=== PATIENT | female | born 1940 | race Caucasian/White ===

== ENCOUNTER 2020-01-13 12:28 | Inpatient (IN) | payer MEDICARE, OTHER ==
--- NOTE | 2020-01-13 13:13 | EDM.PDOC ---
ED HPI GENERAL MEDICAL PROBLEM - General Chief Complaint: Respiratory Problem Stated Complaint: SOB Time Seen by Provider: 01/13/20 13:08 Source of Information: Reports: Patient, Family (spouse) History Limitations: Reports: No Limitations - History of Present Illness INITIAL COMMENTS - FREE TEXT/NARRATIVE: 79-year-old female presents to the ED in the accompaniment of her . She reports diffuse left-sided chest pain starting along the diaphragm and rating up towards the left shoulder for the last 3 weeks. It has been progressively getting worse. It is worse if she coughs or she lies on that side. Describes it primarily as a pleuritic-like pain. She had chills this morning but not previously. No noted fever. Denies any cough or sputum production. No exposure to COVID-19 virus that she knows of. He has had a previous myocardial infarction in 1980 and stop smoking at that time. She has COPD but is not on home oxygen. She has no history of congestive heart failure. She reports that she had an angiogram done a little over 2 weeks ago which proved to be negative for any significant coronary artery blockage. She has a history of breast cancer again into the where she had a large lumpectomy and lymph node dissection on the left side and prophylactic right-sided mastectomy due to abnormalities appreciated on mammogram and she has had reconstructive surgery on this side. Previous abdominal surgeries that of total abdominal hysterectomy and BSO. Also reports having a hemorrhoidectomy and chronic problems with constipation with what sounds like a rectal stenosis. Onset: Gradual Onset Date: 12/23/19 (Steffanie worsening left-sided chest pain x3 weeks.) Duration: Week(s):, Getting Worse Location: Reports: Chest (Diffuse left anterior and posterior chest pain radiating from the diaphragm up to the suprasternal area.) Quality: Reports: Other (Mostly pleuritic-like pain) Severity: Moderate Improves with: Reports: Rest Worsens with: Reports: Other (Also prefers to lie on her right side. She states she sleeps flat with one pillow.) Associated Symptoms: Reports: Chest Pain, Fever/Chills, Loss of Appetite, Malaise, Shortness of Breath, Weakness. Denies: Confusion, Cough, cough w sputum, Diaphoresis, Headaches, Nausea/Vomiting (Is this morning.), Rash, Seizure, Syncope Treatments MAINTENANCE MILLWR[employer]: Reports: Acetaminophen, Other (see below) Left Middle Chest Pain Score (Numeric/FACES): 8 - Related Data Allergies Allergy/AdvReac Type Severity Reaction Status Date / Time diphenhydramine Allergy Severe Other Verified 01/13/20 12:39 [From Benadryl] iodine Allergy Hives Verified 01/13/20 12:39 lisinopril AdvReac Cough Verified 01/13/20 12:39 regadenoson [From Lexiscan] AdvReac Tachycardia Verified 01/13/20 12:39 contrast dye Allergy Hives Uncoded 01/13/20 12:39 Home Meds: Home Meds Acetaminophen [Tylenol Extra Strength] 1,000 mg PO Q4HR PRN 10/05/15 [History] Aspirin [Halfprin] 81 mg PO DAILY 10/05/15 [History] Bumetanide [Bumex] 2 mg PO DAILY 10/05/15 [History] Calcium Carb,Gluc/Mag Ox,Gluc [Calcium Magnesium Caplet] 1 tab PO DAILY 10/05/15 [History] Calcium Carbonate/Vitamin D3 [Caltrate 600 Plus D3 Tablet] 1 tab PO DAILY 10/05/15 [History] Docusate Sodium [Colace] 100 mg PO BID 10/05/15 [History] Fish Oil/DHA/EPA [Fish Oil 1,200 MG] 1 tab PO DAILY 10/05/15 [History] Gabapentin [Neurontin] 400 mg PO DAILY 10/05/15 [History] Isosorbide Mononitrate [Imdur] 60 mg PO DAILY 10/05/15 [History] Losartan [Cozaar] 50 mg PO DAILY 10/05/15 [History] Nitroglycerin [Nitrostat] 0.4 mg SL Q5M 10/05/15 [History] Pentoxifylline [TRENtal] 400 mg PO TID 10/05/15 [History] Sertraline [Zoloft] 50 mg PO DAILY 10/05/15 [History] Vitamin B Complex [B Complex] 1 tab PO DAILY 10/05/15 [History] carvediloL [Coreg] 25 mg PO BID 10/05/15 [History] B2/Vits A,C,E/Lut/Zeaxanth/Min [Icaps] 1 tab PO DAILY 04/23/16 [History] Potassium Chloride 10 meq PO DAILY 04/23/16 [History] Similasan Eye Drop 1 drop EYEBOTH DAILY 04/23/16 [History] Simvastatin 1 tab PO DAILY 04/23/16 [History] Pantoprazole [Protonix] 40 mg PO BIDAC #60 tab.cr 04/24/16 [Rx] Past Medical History HEENT History: Reports: Cataract, Glaucoma, Impaired Vision Other HEENT History: wears glasses, has upper partial Cardiovascular History: Reports: CAD, Cardiomyopathy, Heart Failure, High Cholesterol, VT (Seen 81 at which time she quit smoking.), PVD, SOB on Exertion Other Cardiovascular History: HX VT 1980 with resultant cardiomyopathy - 2013 Echo with EF 30% Respiratory History: Reports: COPD (And on home oxygen therapy.), SOB Gastrointestinal History: Reports: GERD (On Protonix daily.) Other Gastrointestinal History: dysphagia, gastritis, hiatal hernia, polyp, nausea Other [employer]ION F[employer]ER History: pelvic relaxation, hx breast Cancer, bilateral masectomy, ovarian cystectomy, hysterectomy, cystocele, rectocele Musculoskeletal History: Reports: Back Pain, Chronic, Osteoarthritis, Osteoporosis Other Musculoskeletal History: degernative joint disease Other Neuro History: vertigo Psychiatric History: Reports: Depression Endocrine/Metabolic History: Reports: Osteoporosis, Vitamin D Deficiency Hematologic History: Reports: Anemia, Blood Transfusion(s) Immunologic History: Reports: None Oncologic (Cancer) History: Reports: Breast (Left breast cancer in the 1980s treated with lumpectomy and lymph node dissection. Did not require chemotherapy or radiation.) - Infectious Disease History Infectious Disease History: Reports: None - Past Surgical History HEENT Surgical History: Reports: Cataract Surgery Cardiovascular Surgical History: Reports: Other (See Below) Other Cardiovascular Surgeries/Procedures: Angiogram December 2019--negative for any significant coronary disease blockage. GI Surgical History: Reports: Colonoscopy, EGD Other GI Surgeries/Procedures: hemorrhoidectomy, rectocele repair Female Surgical History: Reports: Breast Reconstruction (On the right side. Breast was removed prophylactically due to left-sided breast cancer where she had a lumpectomy and lymph node dissection. She never required any chemotherapy or radiation.), Hysterectomy, Mastectomy, Salpingo-Oophorectomy (Bilateral.), Other (See Below) Oncologic Surgical History: Reports: Mastectomy Social & Family History - Tobacco Use Smoking Status *Q: Never Smoker - Caffeine Use Caffeine Use: Reports: Soda - Recreational Drug Use Recreational Drug Use: No - Living Situation & Occupation Living situation: Reports: Occupation: Retired ED ROS GENERAL - Review of Systems Review Of Systems: See Below Constitutional: Reports: Chills, Malaise, Weakness (Developed this morning.), Fatigue, Decreased Appetite, Weight Loss. Denies: Fever HEENT: Reports: Glasses Respiratory: Reports: Shortness of Breath, Pleuritic Chest Pain. Denies: Wheezing, Cough (Left side. This is been going on for 3 weeks and gradually worsening.), Sputum, Hemoptysis Cardiovascular: Reports: Chest Pain (Left-sided chest pain from diaphragm up to the superior lung field), Dyspnea on Exertion. 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 Feels very mildly warm to palpation. Temperature is 37.2 is recorded by nursing staff. Heart rate was 78 in sinus . BP 114/55 when she came in but it dropped to 105/50 while I was in the room. Sats remained 96 to 97% on room air but she is working hard to breathe.) Eye Exam: Bilateral Eye: Normal Inspection, PERRL Throat/Mouth: Normal Inspection, Normal Oropharynx, Normal Voice Head: Atraumatic, Normocephalic Neck: Normal Inspection, Supple, Full Range of Motion, Tender Lateral. No: Carotid Bruit, Lymphadenopathy (L), Lymphadenopathy (R), Thyromegaly Respiratory/Chest: No Accessory Muscle Use, Respiratory Distress (Tachypnea at rest.), Decreased Breath Sounds, Splinting. No: Crackles, Rales, Rhonchi, Wheezing (Sounds are mildly decreased to both lung bases some splinting on the left side.) Cardiovascular: Regular Rate, Rhythm, No Edema, No Gallop, No Murmur, No Rub, Other (Has known significant peripheral vascular disease with claudication.). No: Normal Peripheral Pulses Peripheral Pulses: 1+: Posterior Tibial (L) (Feet are cold and pulses are very difficult to feel.), Posterior Tibial (R), Dorsalis Pedis (L), Dorsalis Pedis (R), 2+: Carotid (L), Carotid (R) GI/Abdominal: Normal Bowel Sounds, Soft, Non-Tender, No Organomegaly, No Distention, No Abnormal Bruit, Pelvis Stable, Other (Pfannenstiel incision across the lower abdomen which is difficult to see as it is in 1 of her skin folds. This is from her total abdominal hysterectomy and BSO.) Extremities: Normal Inspection, Non-Tender, No Pedal Edema Neurological: Alert, Oriented, CN II-XII Intact, Normal Cognition Psychiatric: Anxious, Other (In pain.) Skin Exam: Warm, Dry, Intact, Normal Color, No Rash EKG INTERPRETATION EKG Date: 01/13/20 Time: 12:51 Rhythm: NSR Rate (Beats/Min): 75 [place]: LAD-Left [place] Deviation (This 50 degrees) P-Wave: Enlarged QRS: Other (There are Q waves V1 to V3 suggestive of an old anterior septal myocardial infarction. There are reciprocal changes with T wave inversions in leads I and aVL.) ST-T: Other (T wave inversion in leads I and aVL) QT: Prolonged EKG Interpretation Comments: Abnormal ECG Course - Vital Signs Last Recorded V/S: Last Vital Signs Temp 37.2 C 01/13/20 12:39 Pulse 78 01/13/20 12:39 Resp 20 01/13/20 12:39 BP 114/55 L 01/13/20 12:39 Pulse Ox 97 01/13/20 12:39 - Orders/Labs/Meds Orders: Active Orders 24 hr Category Date Time Status EKG 12 Lead [EKG Documentation Completion] [RC] ROUTINE Care 01/13/20 12:51 Active CULTURE BLOOD [BC] Stat Lab 01/13/20 13:39 Received CULTURE BLOOD [BC] Stat Lab 01/13/20 13:49 Received CULTURE URINE [RM] Routine Lab 01/13/20 15:35 Received PROCALCITONIN [REF] Stat Lab 01/13/20 13:49 Received Azithromycin [Zithromax] 500 mg Med 01/13/20 17:31 Active Sodium Chloride 0.9% [Normal Saline] 250 ml IV ONETIME Dextrose 5%-0.9% NaCl [Dextrose 5%-Normal Saline] 1,000 Med 01/13/20 13:15 Active ml IV ASDIRECTED cefTRIAXone [Rocephin] 2 gm Med 01/13/20 16:30 Active Sodium Chloride 0.9% [Normal Saline] 100 ml IV Q24H Blood Culture x2 Reflex Set [OM.PC] Stat Oth 01/13/20 13:11 Ordered Medication Orders Acetaminophen (Tylenol) 650 mg PO Q4H PRN PRN Reason: Pain (mild 1-3) Hydrocodone Bitart/Acetaminophen ([place] 325-5 Mg) 1 tab PO Q4H PRN PRN Reason: Pain (moderate 4-6) Albuterol/Ipratropium (Duoneb 3.0-0.5 Mg/3 Ml) 3 ml NEB Q4HRRT PRN PRN Reason: Wheezing Aspirin (Halfprin) 81 mg PO DAILY [facility] Benzonatate (Tessalon Perles) 100 mg PO TID PRN PRN Reason: Cough Bumetanide (Bumex) 2 mg PO DAILY [facility] Carvedilol (Coreg) 25 mg PO BID [facility] Gabapentin (Neurontin) 400 mg PO DAILY [facility] Guaifenesin (Mucinex) 600 mg PO BID PRN PRN Reason: Cough Hydralazine HCl (Apresoline) 10 mg IVPUSH Q2H PRN PRN Reason: Hypertension Dextrose/Sodium Chloride (Dextrose 5%-Normal Saline) 1,000 mls @ 100 mls/hr IV ASDIRECTED [facility] Last Admin: 01/13/20 13:54 Dose: 100 mls/hr Documented by: CORINA Ceftriaxone Sodium 2 gm/ (Sodium Chloride) 100 mls @ 200 mls/hr IV Q24H [facility] Last Admin: 01/13/20 16:34 Dose: 200 mls/hr Documented by: GEORGI Azithromycin 500 mg/ Sodium (Chloride) 250 mls @ 250 mls/hr IV ONETIME ONE Stop: 01/13/20 18:30 Last Admin: 01/13/20 17:54 Dose: 250 mls/hr Documented by: GEORGI Azithromycin 500 mg/ Sodium (Chloride) 250 mls @ 250 mls/hr IV Q24H [facility] Stop: 01/17/20 19:14 Ceftriaxone Sodium 2 gm/ (Sodium Chloride) 100 mls @ 200 mls/hr IV Q24H [facility] Stop: 01/17/20 18:44 Isosorbide Mononitrate (Imdur) 60 mg PO DAILY [facility] Losartan Potassium (Cozaar) 50 mg PO DAILY [facility] Morphine Sulfate (Morphine) 2 mg IVPUSH Q4H PRN PRN Reason: Pain (severe 7-10) Stop: 01/14/20 17:44 Non-Formulary Medication (Pentoxifylline) 400 mg PO TID [facility] Non-Formulary Medication (Similasan Eye Drop) 1 drop EYEBOTH DAILY [facility] Ondansetron HCl (Zofran Odt) 4 mg PO Q6H PRN PRN Reason: nausea, able to take PO Ondansetron HCl (Zofran) 4 mg IV Q6H PRN PRN Reason: Nausea/Vomiting Senna (Senna) 8.6 mg PO BID [facility] Sertraline HCl (Zoloft) 50 mg PO DAILY [facility] Labs: Laboratory Tests 01/13/20 01/13/20 01/13/20 Range/Units 13:39 13:39 13:39 WBC 10.47 H (3.98-10.04) K/mm3 RBC 3.61 L (3.98-5.22) M/mm3 Hgb 10.6 L (11.2-15.7) gm/dl Hct 33.0 L (34.1-44.9) % MCV 91.4 (79.4-94.8) fl MCH 29.4 (25.6-32.2) pg MCHC 32.1 L (32.2-35.5) g/dl RDW Std Deviation 44.2 (36.4-46.3) fL Plt Count 225 (182-369) K/mm3 MPV 10.0 (9.4-12.3) fl Neutrophils % (Manual) 77 H (40-60) % Band Neutrophils % 0 (0-10) % Lymphocytes % (Manual) 18 L (20-40) % Atypical Lymphs % 0 % Monocytes % (Manual) 5 (2-10) % Eosinophils % (Manual) 0 L (0.7-5.8) % Basophils % (Manual) 0 L (0.1-1.2) Toxic Granulation Few Platelet Estimate Adequate Plt Morphology Comment Normal Microcytosis 1+ slight RBC Morph Comment Not Reportable ESR 79 H (0-20) mm/hr PT (9.7-12.0) SECONDS INR APTT (22-31) SECONDS D-Dimer, Quantitative (0.19-0.50) mg/L Sodium (136-145) mEq/L Potassium (3.5-5.1) mEq/L Chloride (98-107) mEq/L Carbon Dioxide (21-32) mEq/L Anion Gap (5-15) BUN (7-18) mg/dL Creatinine (0.55-1.02) mg/dL Est Cr Clr Drug Dosing mL/min Estimated GFR (MDRD) (>60) mL/min BUN/Creatinine Ratio (14-18) Glucose (83-115) mg/dL Lactic Acid 0.7 (0.4-2.0) mmol/L Calcium (8.5-10.1) mg/dL Total Bilirubin (0.2-1.0) mg/dL AST (15-37) U/L ALT (14-59) U/L Alkaline Phosphatase (46-116) U/L Troponin I (0.00-0.056) ng/mL C-Reactive Protein (<1.0) mg/dL NT-Pro-B Natriuret Pep (0-450) pg/mL Total Protein (6.4-8.2) g/dl Albumin (3.4-5.0) g/dl Globulin gm/dL Albumin/Globulin Ratio (1-2) Urine Color (Yellow) Urine Appearance (Clear) Urine pH (5.0-8.0) Ur Specific [place] (1.005-1.030) Urine Protein (Negative) Urine Glucose (UA) (Negative) Urine Ketones (Negative) Urine Occult Blood (Negative) Urine Nitrite (Negative) Urine Bilirubin (Negative) Urine Urobilinogen (0.2-1.0) Ur Leukocyte Esterase (Negative) U Hyaline Cast (Auto) (0-5) /lpf Urine RBC (0-5) /hpf Urine WBC (0-5) /hpf Ur Squamous Epith Cells (0-5) /hpf Urine Bacteria (FEW) /hpf Urine Mucus (FEW) /hpf SARS Virus RNA (PCR) (NEGATIVE) 01/13/20 01/13/20 01/13/20 Range/Units 13:49 13:49 13:49 WBC (3.98-10.04) K/mm3 RBC (3.98-5.22) M/mm3 Hgb (11.2-15.7) gm/dl Hct (34.1-44.9) % MCV (79.4-94.8) fl MCH (25.6-32.2) pg MCHC (32.2-35.5) g/dl RDW Std Deviation (36.4-46.3) fL Plt Count (182-369) K/mm3 MPV (9.4-12.3) fl Neutrophils % (Manual) (40-60) % Band Neutrophils % (0-10) % Lymphocytes % (Manual) (20-40) % Atypical Lymphs % % Monocytes % (Manual) (2-10) % Eosinophils % (Manual) (0.7-5.8) % Basophils % (Manual) (0.1-1.2) Toxic Granulation Platelet Estimate Plt Morphology Comment Microcytosis RBC Morph Comment ESR (0-20) mm/hr PT 11.4 (9.7-12.0) SECONDS INR 1.05 APTT 32 H (22-31) SECONDS D-Dimer, Quantitative 2.23 H (0.19-0.50) mg/L Sodium 139 (136-145) mEq/L Potassium 4.0 (3.5-5.1) mEq/L Chloride 102 (98-107) mEq/L Carbon Dioxide 23 (21-32) mEq/L Anion Gap 18.0 H (5-15) BUN 31 H (7-18) mg/dL Creatinine 1.7 H (0.55-1.02) mg/dL Est Cr Clr Drug Dosing 21.22 mL/min Estimated GFR (MDRD) 29 (>60) mL/min BUN/Creatinine Ratio 18.2 H (14-18) Glucose 120 H (83-115) mg/dL Lactic Acid (0.4-2.0) mmol/L Calcium 8.4 L (8.5-10.1) mg/dL Total Bilirubin 1.2 H (0.2-1.0) mg/dL AST 15 (15-37) U/L ALT 16 (14-59) U/L Alkaline Phosphatase 67 (46-116) U/L Troponin I < 0.017 (0.00-0.056) ng/mL C-Reactive Protein 14.8 H* (<1.0) mg/dL NT-Pro-B Natriuret Pep 536 H (0-450) pg/mL Total Protein 7.2 (6.4-8.2) g/dl Albumin 3.5 (3.4-5.0) g/dl Globulin 3.7 gm/dL Albumin/Globulin Ratio 1.0 (1-2) Urine Color (Yellow) Urine Appearance (Clear) Urine pH (5.0-8.0) Ur Specific [place] (1.005-1.030) Urine Protein (Negative) Urine Glucose (UA) (Negative) Urine Ketones (Negative) Urine Occult Blood (Negative) Urine Nitrite (Negative) Urine Bilirubin (Negative) Urine Urobilinogen (0.2-1.0) Ur Leukocyte Esterase (Negative) U Hyaline Cast (Auto) (0-5) /lpf Urine RBC (0-5) /hpf Urine WBC (0-5) /hpf Ur Squamous Epith Cells (0-5) /hpf Urine Bacteria (FEW) /hpf Urine Mucus (FEW) /hpf SARS Virus RNA (PCR) (NEGATIVE) 01/13/20 01/13/20 Range/Units 15:35 15:40 WBC (3.98-10.04) K/mm3 RBC (3.98-5.22) M/mm3 Hgb (11.2-15.7) gm/dl Hct (34.1-44.9) % MCV (79.4-94.8) fl MCH (25.6-32.2) pg MCHC (32.2-35.5) g/dl RDW Std Deviation (36.4-46.3) fL Plt Count (182-369) K/mm3 MPV (9.4-12.3) fl Neutrophils % (Manual) (40-60) % Band Neutrophils % (0-10) % Lymphocytes % (Manual) (20-40) % Atypical Lymphs % % Monocytes % (Manual) (2-10) % Eosinophils % (Manual) (0.7-5.8) % Basophils % (Manual) (0.1-1.2) Toxic Granulation Platelet Estimate Plt Morphology Comment Microcytosis RBC Morph Comment ESR (0-20) mm/hr PT (9.7-12.0) SECONDS INR APTT (22-31) SECONDS D-Dimer, Quantitative (0.19-0.50) mg/L Sodium (136-145) mEq/L Potassium (3.5-5.1) mEq/L Chloride (98-107) mEq/L Carbon Dioxide (21-32) mEq/L Anion Gap (5-15) BUN (7-18) mg/dL Creatinine (0.55-1.02) mg/dL Est Cr Clr Drug Dosing mL/min Estimated GFR (MDRD) (>60) mL/min BUN/Creatinine Ratio (14-18) Glucose (83-115) mg/dL Lactic Acid (0.4-2.0) mmol/L Calcium (8.5-10.1) mg/dL Total Bilirubin (0.2-1.0) mg/dL AST (15-37) U/L ALT (14-59) U/L Alkaline Phosphatase (46-116) U/L Troponin I (0.00-0.056) ng/mL C-Reactive Protein (<1.0) mg/dL NT-Pro-B Natriuret Pep (0-450) pg/mL Total Protein (6.4-8.2) g/dl Albumin (3.4-5.0) g/dl Globulin gm/dL Albumin/Globulin Ratio (1-2) Urine Color Yellow (Yellow) Urine Appearance Clear (Clear) Urine pH 6.0 (5.0-8.0) Ur Specific [place] 1.020 (1.005-1.030) Urine Protein Negative (Negative) Urine Glucose (UA) Negative (Negative) Urine Ketones Negative (Negative) Urine Occult Blood Negative (Negative) Urine Nitrite Negative (Negative) Urine Bilirubin Negative (Negative) Urine Urobilinogen 0.2 (0.2-1.0) Ur Leukocyte Esterase Trace H (Negative) U Hyaline Cast (Auto) 5-10 H (0-5) /lpf Urine RBC 0-5 (0-5) /hpf Urine WBC 10-20 H (0-5) /hpf Ur Squamous Epith Cells 10-20 H (0-5) /hpf Urine Bacteria Rare (FEW) /hpf Urine Mucus Rare (FEW) /hpf SARS Virus RNA (PCR) Negative (NEGATIVE) Meds: Medications Generic Name Dose Route Start Last Admin Trade Name Freq PRN Reason Stop Dose Admin Acetaminophen 650 mg 01/13/20 17:40 Tylenol PO Q4H PRN Pain (mild 1-3) Hydrocodone Bitart/Acetaminophen 1 tab 01/13/20 17:40 [place] 325-5 Mg PO Q4H PRN Pain (moderate 4-6) Albuterol/Ipratropium 3 ml 01/13/20 17:40 Duoneb 3.0-0.5 Mg/3 Ml NEB Q4HRRT PRN Wheezing Aspirin 81 mg 01/14/20 09:00 Halfprin PO DAILY [facility] Benzonatate 100 mg 01/13/20 17:40 Tessalon Perles PO TID PRN Cough Bumetanide 2 mg 01/14/20 09:00 Bumex PO DAILY [facility] Carvedilol 25 mg 01/13/20 21:00 Coreg PO BID [facility] Gabapentin 400 mg 01/14/20 09:00 Neurontin PO DAILY [facility] Guaifenesin 600 mg 01/13/20 17:40 Mucinex PO BID PRN Cough Hydralazine HCl 10 mg 01/13/20 17:49 Apresoline IVPUSH Q2H PRN Hypertension Dextrose/Sodium Chloride 1,000 mls @ 100 mls/hr 01/13/20 13:15 01/13/20 13:54 Dextrose 5%-Normal Saline IV 100 mls/hr ASDIRECTED KIRILL Administration Ceftriaxone Sodium 2 gm/ 100 mls @ 200 mls/hr 01/13/20 16:30 01/13/20 16:34 Sodium Chloride IV 200 mls/hr Q24H [facility] Administration Azithromycin 500 mg/ Sodium 250 mls @ 250 mls/hr 01/13/20 17:31 01/13/20 17:54 Chloride IV 01/13/20 18:30 250 mls/hr ONETIME ONE Administration Azithromycin 500 mg/ Sodium 250 mls @ 250 mls/hr 01/14/20 18:15 Chloride IV 01/17/20 19:14 Q24H K[facility] Ceftriaxone Sodium 2 gm/ 100 mls @ 200 mls/hr 01/14/20 18:15 Sodium Chloride IV 01/17/20 18:44 Q24H [facility] Isosorbide Mononitrate 60 mg 01/14/20 09:00 Imdur PO DAILY [facility] Losartan Potassium 50 mg 01/14/20 09:00 Cozaar PO DAILY [facility] Morphine Sulfate 2 mg 01/13/20 17:40 Morphine IVPUSH 01/14/20 17:44 Q4H PRN Pain (severe 7-10) Non-Formulary Medication 400 mg 01/13/20 21:00 Pentoxifylline PO TID [facility] Non-Formulary Medication 1 drop 01/14/20 09:00 Similasan Eye Drop EYEBOTH DAILY [facility] Ondansetron HCl 4 mg 01/13/20 17:40 Zofran Odt PO Q6H PRN nausea, able to take PO Ondansetron HCl 4 mg 01/13/20 17:40 Zofran IV Q6H PRN Nausea/Vomiting Senna 8.6 mg 01/13/20 21:00 Senna PO BID [facility] Sertraline HCl 50 mg 01/14/20 09:00 Zoloft PO DAILY [facility] Discontinued Medications Generic Name Dose Route Start Last Admin Trade Name Freq PRN Reason Stop Dose Admin Hydromorphone HCl 0.25 mg 01/13/20 13:14 01/13/20 13:56 Dilaudid IVPUSH 01/13/20 13:15 0.25 mg ONETIME ONE Administration Ondansetron HCl 4 mg 01/13/20 13:14 01/13/20 13:54 Zofran IVPUSH 01/13/20 13:15 4 mg ONETIME ONE Administration - Radiology Interpretation Free Text/Narrative:: 79-year-old female presents to the ED for evaluation of 3 weeks of gradually worsening left-sided chest pain. Pain is felt throughout the entire left lung field both anteriorly and posteriorly from diaphragm to the superior aspect of her lung in the supraclavicular fossa. It is made worse by coughing deep breathing and certain movements. She prefers to lie on her left side as this seems to relieve the pain. She denies cough or sputum production. She did have an angiogram performed by cardiology 2 weeks ago or little better and apparently had no significant coronary artery occlusion. She has a history of previous microinfarction 1980 and mild congestive heart failure subsequently. She has had previous breast cancer on the left side in the not receiving any chemotherapy or radiation. Prophylactic right sided mastectomy with breast reconstruction. She is tachypneic at rest and splinting respirations on the left side. They are staying 96 to 97% on room air but she is working hard to achieve this. She quit smoking in 1980. Lung sounds sound normal. Plan chest x-ray. ECG. Routine labs and septic work-up as her blood pressure fell to as low as 102/50 during my examination and she feels slightly warm to palpation. COVID screen will also be obtained. Patient will be started on D5 normal saline at 100 mils per hour. She was given 0.25 mg of Dilaudid IV with Zofran 4 mg IV for pain relief. - Re-Assessments/Exams Free Text/Narrative Re-Assessment/Exam: 01/13/20 13:39 portable chest x-ray reveals poor inspirational views. There perhaps is very minimal blunting of the left costophrenic angle probably of scar to think by a rib and overlying soft tissues. She has a defibrillator pacemaker in her left upper anterior chest. No pleural effusions cardiac silhouette reveals mild cardiomegaly megaly. No pneumonia. 01/13/20 14:46 Hematology reveals a white count of 10.47 slightly elevated. Differential pending. Hemoglobin is slightly low at 10.6 with an hematocrit of 33.0. Platelet count 225,000. Lactic acid is 0.7. Reports her pain is much improved with intravenous Dilaudid. Blood pressure is dropped to 90 systolic. We will give her a little bit of extra fluids to bring it up. Will be given a 200 mils [id number] saline fluid bolus 01/13/20 14:56 Differential on the white count is still pending. PT is 11.4 with an INR of 1.05. PTT is 32 d-dimer is elevated at 2.23. Sodium 139 with a potassium of 4.0. Chloride is 102 with a bicarb of 23. Anion gap is elevated at 18.0. BUN is 31 with a creatinine of 1.7. GFR is down to 29 i.e. stage IV chronic kidney disease. BUN/creatinine ratio is 18.2. Glucose is 120. Lactic acid is 0.7. Calcium is pending total bilirubin is 1.2 remainder the liver function is normal. Troponin I is less than 0.017. C-reactive protein is elevated at 14.8. BNP is 536.She is therefore not a candidate for CT pulmonary angiogram due to poor renal function. Awaiting a urinalysis. 01/13/20 15:01 BNP has just returned and is elevated at 536. 01/13/20 15:37 patient is now getting up to void. I am therefore going to have CT of the abdomen pelvis performed without any contrast looking for any signs of an obvious malignancy. She can make not take IV contrast due to stage IV renal insufficiency. Oral contrast would not likely yield any significant benefit in looking for a malignancy of the pancreas or liver mets etc. 01/13/20 16:25 CT of the abdomen and pelvis has been completed without any contrast due to severe renal insufficiency. Findings there is a parenchymal density noted within the left lung base. This may be chronic but difficult to exclude small area of pneumonia which would correlate with her current symptom complex. Minimal pleural thickening is also seen within this area heart is enlarged. Noncontrast appearance of the liver shows no focal abnormalities. Spleen appears to be normal. Adrenal glands show no nodules. Pancreas shows no discrete abnormality. Gallbladder contains no calcified gallstones. Kidneys show no abnormal calcifications or hydronephrosis. No discrete renal parenchymal abnormality is appreciated. Aorta shows atherosclerotic calcification which continues into the Br[place] branch vessels. Atherosclerotic calcification is also noted within the iliac vessels. Diverticuli are seen within the sigmoid colon with infarct without any inflammatory change or diverticulitis. No free fluid or inflammatory changes appreciated in the pelvis. Appendix is seen and normal in size. No free fluid or inflammatory changes appreciated. Bone window settings were reviewed which shows scattered degenerative change within the spine no acute osseous finding is appreciated. Patient will thus be started on Rocephin 2 g IV. 01/13/20 16:52 Urinalysis has returned showing clear yellow urine with a trace of leukocyte esterase and 5-10 hyaline casts. There is 10-20 WBCs per high- power field 0-5 RBCs and 10-20 squamous epithelial cells suggesting possible upper urinary tract infection. Urine culture has been ordered. Have spoken with Dr. Lugo on-call hospitalist and she will attend the patient in the ED. 01/13/20 17:34 and is being seen by Dr. Lugo at this time. The plan will be readmitted to the [facility] floor . Departure - Departure Time of Disposition: 18:20 Disposition: Admitted As Inpatient 66 Condition: Fair Clinical Impression: Pneumonia Qualifiers: Pneumonia type: due to unspecified organism Laterality: left Lung location: lower lobe of lung Qualified Code(s): J18.9 - Pneumonia, unspecified organism - Discharge Information *PRESCRIPTION DRUG MONITORING PROGRAM REVIEWED*: Not Applicable *COPY OF PRESCRIPTION DRUG MONITORING REPORT IN PATIENT KATHY: Not Applicable Sepsis Event Note (ED) - Evaluation Sepsis Screening Result: No Definite Risk - Focused Exam Vital Signs: Vital Signs Temp Pulse Resp BP Pulse Ox 01/13/20 12:39 37.2 C 78 20 114/55 L 97 - My Orders Last 24 Hours: My Active Orders 01/13/20 12:51 EKG 12 Lead [EKG Documentation Completion] [RC] ROUTINE 01/13/20 13:11 Blood Culture x2 Reflex Set [OM.PC] Stat 01/13/20 13:15 Dextrose 5%-0.9% NaCl [Dextrose 5%-Normal Saline] 1,000 ml IV ASDIRECTED 01/13/20 13:39 CULTURE BLOOD [BC] Stat 01/13/20 13:49 CULTURE BLOOD [BC] Stat PROCALCITONIN [REF] Stat 01/13/20 15:35 CULTURE URINE [RM] Routine 01/13/20 16:30 cefTRIAXone [Rocephin] 2 gm Sodium Chloride 0.9% [Normal Saline] 100 ml IV Q24H 01/13/20 17:31 Azithromycin [Zithromax] 500 mg Sodium Chloride 0.9% [Normal Saline] 250 ml IV ONETIME - Assessment/Plan Last 24 Hours: My Active Orders 01/13/20 12:51 EKG 12 Lead [EKG Documentation Completion] [RC] ROUTINE 01/13/20 13:11 Blood Culture x2 Reflex Set [OM.PC] Stat 01/13/20 13:15 Dextrose 5%-0.9% NaCl [Dextrose 5%-Normal Saline] 1,000 ml IV ASDIRECTED 01/13/20 13:39 CULTURE BLOOD [BC] Stat 01/13/20 13:49 CULTURE BLOOD [BC] Stat PROCALCITONIN [REF] Stat 01/13/20 15:35 CULTURE URINE [RM] Routine 01/13/20 16:30 cefTRIAXone [Rocephin] 2 gm Sodium Chloride 0.9% [Normal Saline] 100 ml IV Q24H 01/13/20 17:31 Azithromycin [Zithromax] 500 mg Sodium Chloride 0.9% [Normal Saline] 250 ml IV ONETIME
[2020-01-13] MEDS ORDERED: Ondansetron 4 MG/2 ML SDV IVPUSH ONE (13:14)
[2020-01-13] MEDS ORDERED: HYDROmorphone 0.5 MG/0.5 ML Syringe IVPUSH ONE (13:14)
--- NOTE | 2020-01-13 13:31 | CR ---
Chest: Portable view of the chest was obtained. Comparison: Prior chest x-ray of 06/10/14. Heart is mildly. AICD is seen. Upper mediastinum is normal. Surgical clips are seen within the right axillary region. Lungs are clear with no acute parenchymal change. Bony structures are grossly intact. Impression: 1. Findings as noted above. 2. Nothing acute is appreciated. Diagnostic code #2 This report was dictated in MDT
[2020-01-13] MEDS: Dextrose 5%-0.9% NaCl 1,000 ML IV SCH ×2 (13:54→20:32)
--- NOTE | 2020-01-13 16:10 | CT ---
CT abdomen and pelvis Technique: Multiple axial sections were obtained from above the dome of the diaphragm inferiorly through the pubic symphysis. Intravenous and oral contrast not utilized. Findings: Parenchymal density is noted within left base. This may be chronic but difficult to exclude small area of pneumonia. Minimal pleural thickening is also seen within this area. Heart is enlarged. Noncontrast appearance of the liver shows no focal abnormality. Spleen appears within normal limits. Adrenal glands show no nodule. Pancreas shows no discrete abnormality. Gallbladder contains no calcified gallstones. Kidneys show no abnormal calcifications or hydronephrosis. No discrete renal parenchymal abnormality is appreciated. Aorta shows atherosclerotic calcification which continues into the branch vessels. Atherosclerotic calcification is also noted within the iliac vessels. Diverticuli are seen within the sigmoid colon without inflammatory change or diverticulitis. No free fluid or inflammatory change is seen. Appendix is seen and is normal in size. No free fluid or inflammatory change is seen. Bone window settings were reviewed which shows scattered degenerative change within the spine. No acute osseous finding is seen. Impression: 1. Parenchymal density within the left lung base. Uncertain if this is chronic or represents an area of pneumonia. Associated pleural thickening is also seen within the left base. 2. Cardiomegaly. 3. Other findings as noted above. Nothing acute is otherwise appreciated on noncontrast CT study of the abdomen and pelvis. Diagnostic code #3 This report was dictated in MDT
[2020-01-13] MEDS ORDERED: cefTRIAXone 2 GM in Sodium Chloride 0.9% 100 ML IV SCH (16:30)
[2020-01-13] MEDS ORDERED: Azithromycin 500 MG in Sodium Chloride 0.9% 250 ML IV ONE (17:31)
--- NOTE | 2020-01-13 17:39 | PCM.HP.2 ---
H&P History of Present Illness - General Date of Service: 01/13/20 Admit Problem/Dx: Admission Diagnosis/Problem Admission Diagnosis/Problem Pneumonia - History of Present Illness Initial Comments - Free Text/Narative: This is a 79 year old female with past medical history of hypertension, heart failure s/p AICD placement who comes to the ED complaining of severe pain on her left chest, abdomen, back and shoulder for 5 days. Patient does not recall what she was doing when it started, she does describe it as " sharp and pulling", grades it 20/10, non radiating, it all just hurts at the same time. It is improved by staying still and worsens with taking a deep breath, lasts about 30 minutes when it happens. She did not try any kind of medications at home. She associates it with shortness of breath, DEWITT, PND, malaise, fatigue, chills, weakness, abdominal bloating and lightheadedness Denies any fever, palpitations, near syncope, cough, runny nose, nasal congestion, neck discomfort, previous episodes, coughing, sputum, wheezing. Waited to come in because she thought this would resolve on its own. Has been following social distancing and denies any sick contacts Left Middle Chest Pain Score (Numeric/FACES): 8 - Related Data Allergies/Adverse Reactions: Allergies Allergy/AdvReac Type Severity Reaction Status Date / Time diphenhydramine Allergy Severe Other Verified 01/13/20 12:39 [From Benadryl] iodine Allergy Hives Verified 01/13/20 12:39 lisinopril AdvReac Cough Verified 01/13/20 12:39 regadenoson [From Lexiscan] AdvReac Tachycardia Verified 01/13/20 12:39 contrast dye Allergy Hives Uncoded 01/13/20 12:39 Home Medications: Home Meds Acetaminophen [Tylenol Extra Strength] 1,000 mg PO Q4HR PRN 10/05/15 [History] Aspirin [Halfprin] 81 mg PO DAILY 10/05/15 [History] Bumetanide [Bumex] 2 mg PO DAILY 10/05/15 [History] Calcium Carb,Gluc/Mag Ox,Gluc [Calcium Magnesium Caplet] 1 tab PO DAILY 10/05/15 [History] Calcium Carbonate/Vitamin D3 [Caltrate 600 Plus D3 Tablet] 1 tab PO DAILY 10/05/15 [History] Docusate Sodium [Colace] 100 mg PO BID 10/05/15 [History] Fish Oil/DHA/EPA [Fish Oil 1,200 MG] 1 tab PO DAILY 10/05/15 [History] Gabapentin [Neurontin] 400 mg PO DAILY 10/05/15 [History] Isosorbide Mononitrate [Imdur] 60 mg PO DAILY 10/05/15 [History] Losartan [Cozaar] 50 mg PO DAILY 10/05/15 [History] Nitroglycerin [Nitrostat] 0.4 mg SL Q5M 10/05/15 [History] Pentoxifylline [TRENtal] 400 mg PO TID 10/05/15 [History] Sertraline [Zoloft] 50 mg PO DAILY 10/05/15 [History] Vitamin B Complex [B Complex] 1 tab PO DAILY 10/05/15 [History] carvediloL [Coreg] 25 mg PO BID 10/05/15 [History] B2/Vits A,C,E/Lut/Zeaxanth/Min [Icaps] 1 tab PO DAILY 04/23/16 [History] Potassium Chloride 10 meq PO DAILY 04/23/16 [History] Similasan Eye Drop 1 drop EYEBOTH DAILY 04/23/16 [History] Simvastatin 1 tab PO DAILY 04/23/16 [History] Pantoprazole [Protonix] 40 mg PO BIDAC #60 tab.cr 04/24/16 [Rx] Past Medical History HEENT History: Reports: Cataract, Glaucoma, Impaired Vision Other HEENT History: wears glasses, has upper partial Cardiovascular History: Reports: CAD, Cardiomyopathy, Heart Failure, High Cholesterol, [place] (Seen 81 at which time she quit smoking.), PVD, SOB on Exertion Other Cardiovascular History: HX [place] 1980 with resultant cardiomyopathy - 2013 Echo with EF 30% Respiratory History: Reports: COPD (And on home oxygen therapy.), SOB Gastrointestinal History: Reports: GERD (On Protonix daily.) Other Gastrointestinal History: dysphagia, gastritis, hiatal hernia, polyp, nausea Other OB/BYN History: pelvic relaxation, hx breast Cancer, bilateral masectomy, ovarian cystectomy, hysterectomy, cystocele, rectocele Musculoskeletal History: Reports: Back Pain, Chronic, Osteoarthritis, Osteoporosis Other Musculoskeletal History: degernative joint disease Other Neuro History: vertigo Psychiatric History: Reports: Depression Endocrine/Metabolic History: Reports: Osteoporosis, Vitamin D Deficiency Hematologic History: Reports: Anemia, Blood Transfusion(s) Immunologic History: Reports: None Oncologic (Cancer) History: Reports: Breast (Left breast cancer in the 1980s treated with lumpectomy and lymph node dissection. Did not require chemotherapy or radiation.) - Infectious Disease History Infectious Disease History: Reports: None - Past Surgical History HEENT Surgical History: Reports: Cataract Surgery Cardiovascular Surgical History: Reports: Other (See Below) Other Cardiovascular Surgeries/Procedures: Angiogram December 2019--negative for any significant coronary disease blockage. GI Surgical History: Reports: Colonoscopy, EGD Other GI Surgeries/Procedures: hemorrhoidectomy, rectocele repair Female Surgical History: Reports: Breast Reconstruction (On the right side. Breast was removed prophylactically due to left-sided breast cancer where she had a lumpectomy and lymph node dissection. She never required any chemotherapy or radiation.), Hysterectomy, Mastectomy, Salpingo-Oophorectomy (Bilateral.), Other (See Below) Oncologic Surgical History: Reports: Mastectomy Social & Family History - Tobacco Use Smoking Status *Q: Never Smoker - Caffeine Use Caffeine Use: Reports: Soda - Recreational Drug Use Recreational Drug Use: No - Living Situation & Occupation Living situation: Reports: Occupation: Retired H&P Review of Systems - Review of Systems: Review Of Systems: See Below General: Reports: Chills, Malaise, Weakness, Fatigue. Denies: Fever, Night Sweats, Diaphoresis, Decreased Appetite, Weight Loss, Weight Gain HEENT: Denies: Headaches, Rhinitis, Post Nasal Drip, Sinus Congestion, Sore Throat, Vertigo, Visual Changes Pulmonary: Reports: Shortness of Breath, Wheezing, Pleuritic Chest Pain. Denies: Cough, Sputum, Hemoptysis Cardiovascular: Reports: Chest Pain, Dyspnea on Exertion, Lightheadedness, Blood Pressure Problem. Denies: Palpitations, Orthopnea, PND, Edema, Syncope, Claudication Gastrointestinal: Reports: Abdominal Pain, Constipation, Distension. Denies: Anorexia, Black Stool, Bloody Stool, Diarrhea, Decreased Appetite, Difficulty Swallowing, Flatus, Hematemesis, Hematochezia, Melena, Mucous in Stool, Nausea, Stool Incontinence, Vomiting Genitourinary: Denies: Dysuria, Frequency, Burning, Pain, Urgency, Incontinence, Hematuria, Retention Musculoskeletal: Denies: Joint Pain, Joint Swelling, Muscle Pain, Muscle Stiffness Skin: Denies: Cyanosis, Jaundice, Mottled, Pallor, Diaphoresis Psychiatric: Denies: Confusion, Depression, Mood Lability, Anxiety, Agitation Neurological: Denies: Dizziness, Headache, Numbness, Paresthesia Exam - Exam Exam: See Below - Vital Signs Vital Signs: Last Vital Signs Temp 99 F 01/13/20 12:39 Pulse 78 01/13/20 12:39 Resp 20 01/13/20 12:39 BP 114/55 L 01/13/20 12:39 Pulse Ox 97 01/13/20 12:39 Weight: 66.678 kg - Exam General: Alert, Oriented, Cooperative, Mild Distress HEENT: Conjunctiva Clear, EACs Clear, Mucosa Moist & [place], Pupils Equal, Pupils Reactive Neck: Supple, Trachea Midline, Full Range of Motion. No: +2 Carotid Pulse wo Bruit, Lymphadenopathy Lungs: Decreased Breath Sounds. No: Normal Respiratory Effort, Crackles, Rales, Rhonchi, Rub, Stridor, Wheezing Cardiovascular: Regular Rate, Regular Rhythm. No: Systolic Murmur, Diastolic Murmur, Rubs, Gallop/S3, Gallop/S4 GI/Abdominal Exam: Normal Bowel Sounds, Soft, Non-Tender, Distended. No: Guarding, Rigid, Rebound Extremities: Normal Inspection, No Pedal Edema, Normal Capillary Refill Peripheral Pulses: 2+: Radial (L), Radial (R) Skin: Warm, Dry, Intact Neuro Extensive - Mental Status: Alert, Oriented x3 Psychiatric: Normal Affect, Normal Mood - Patient Data Result Diagrams: 01/13/20 13:39 01/13/20 13:49 Sepsis Event Note - Evaluation Sepsis Screening Result: No Definite Risk - Focused Exam Vital Signs: Vital Signs Temp Pulse Resp BP Pulse Ox 01/13/20 12:39 99 F 78 20 114/55 L 97 Date Exam was Performed: 01/13/20 Time Exam was Performed: 18:30 - Problem List (1) Pneumonia SNOMED Code(s): 254880764 ICD Code: J18.9 - PNEUMONIA, UNSPECIFIED ORGANISM Status: Acute Current Visit: Yes (2) Leukocytosis SNOMED Code(s): 356103566, 815822660 ICD Code: D72.829 - ELEVATED WHITE BLOOD CELL COUNT, UNSPECIFIED Status: Acute Current Visit: Yes (3) Acute kidney injury SNOMED Code(s): 10271488, 11069563 ICD Code: N17.9 - ACUTE KIDNEY FAILURE, UNSPECIFIED Status: Acute Current Visit: Yes (4) Chronic kidney disease SNOMED Code(s): 006021630 ICD Code: N18.9 - CHRONIC KIDNEY DISEASE, UNSPECIFIED Status: Acute Current Visit: Yes (5) Hypertension SNOMED Code(s): 10679058 ICD Code: I10 - ESSENTIAL (PRIMARY) HYPERTENSION Status: Acute Current Visit: Yes (6) Coronary artery disease SNOMED Code(s): 85236464 ICD Code: I25.10 - ATHSCL HEART DISEASE OF [place] CORONARY ARTERY W/O ANG PCTRS Status: Acute Current Visit: Yes (7) S/P implantation of automatic cardioverter/defibrillator (AICD) SNOMED Code(s): 908207272, 016616031 ICD Code: Z95.810 - PRESENCE OF AUTOMATIC (IMPLANTABLE) CARDIAC DEFIBRILLATOR Status: Acute Current Visit: Yes (8) Heart failure SNOMED Code(s): 62621231 ICD Code: I50.9 - HEART FAILURE, UNSPECIFIED Status: Acute Current Visit: Yes (9) Dyslipidemia SNOMED Code(s): 096009053 ICD Code: E78.5 - HYPERLIPIDEMIA, UNSPECIFIED Status: Acute Current Visit: Yes (10) Glaucoma SNOMED Code(s): 98117671 ICD Code: H40.9 - UNSPECIFIED GLAUCOMA Status: Acute Current Visit: Yes (11) Macular degeneration SNOMED Code(s): 369288896 ICD Code: H35.30 - UNSPECIFIED MACULAR DEGENERATION Status: Acute Current Visit: Yes (12) History of myocardial infarction SNOMED Code(s): 833971527 ICD Code: I25.2 - OLD MYOCARDIAL INFARCTION Status: Acute Current Visit: Yes Problem List Initiated/Reviewed/Updated: Yes Assessment/Plan Comment:: ASSESSMENT This is a 79 year old female with past medical history of hypertension, heart failure s/p AICD placement who comes to the ED complaining of severe pain on her left chest, abdomen, back and shoulder for 5 days. Patient does not recall what she was doing when it started, she does describe it as " sharp and pulling", grades it 20/10, non radiating, it all just hurts at the same time. It is improved by staying still and worsens with taking a deep breath, lasts about 30 minutes when it happens. She did not try any kind of medications at home. She associates it with shortness of breath, [place], PND, malaise, fatigue, chills, weakness, abdominal bloating and lightheadedness Denies any fever, palpitations, near syncope, cough, runny nose, nasal congestion, neck discomfort, previous episodes, coughing, sputum, wheezing. Waited to come in because she thought this would resolve on its own. Has been following social distancing and denies any sick contacts Infiltrate seen on CT abdomen, on left lung base + Leukocytosis--> started coverage for CAP Lactic acid is normal, sepsis is ruled out Patient with history of heart failure s/p AICD placement VS on admission 114/54; 78x'; Temp 99; O2Sat 97% on RA PLAN Pneumonia - Start Azithromycin and Ceftriaxone today to complete 5 days - Procalcitonin today and every 48 hours - 2 view CXR in AM - Respiratory therapy eval and treat - Scheduled incentive spirometry - PRN DuoNebs - Trend temperature and panculture if febrile Acute vs acute on chronic kidney disease - Urine sodium and creatinine to calculate FeNa - Monitor urine output - Renally dosed medications Hypertension - Continue home meds once available - PRN Hydralazine Coronary artery disease s/p myocardial infarction Heart failure S/P implantation of automatic cardioverter/defibrillator (AICD) Dyslipidemia - Monitor for chest pain - Continue home meds once available - Interrogate AICD - Obtain records Glaucoma Macular degeneration - Continue home medications PROPHYLAXIS DVT- compression stockings GI- not indicated CODE STATUS: FULL CODE DISPOSITION: Patient will be admitted for IV antibiotics and respiratory therapy, monitorization of oxygenation. SOCIAL: Lives in [place] with and son in a house Prior to this was completely independent on ADLs and IADLs Never drinker, smoker or illicit drug user is MPOA - Mortality Measure Prognosis:: Good
[2020-01-13] MEDS ORDERED: Ondansetron 4 MG/2 ML SDV IV PRN (17:40)
[2020-01-13] MEDS ORDERED: Acetaminophen 325 MG Tab PO PRN (17:40)
[2020-01-13] MEDS ORDERED: guaiFENesin 600 MG Tab.ER PO PRN (17:40)
[2020-01-13] MEDS ORDERED: Ondansetron 4 MG Tab.DIS PO PRN (17:40)
[2020-01-13] MEDS ORDERED: Benzonatate 100 MG Cap PO PRN (17:40)
[2020-01-13] MEDS ORDERED: hydrALAZINE 20 MG/ML SDV IVPUSH PRN (17:49)
[2020-01-13] MEDS: Acetaminophen/HYDROcodone 325-5 MG Tab PO PRN (18:43)
[2020-01-13] MEDS: Morphine 2 MG/ML SYRINGE IVPUSH PRN (18:45)
[2020-01-13] MEDS: Sertraline 50 MG Tab PO SCH (20:31)
[2020-01-13] MEDS: Sennosides 8.6 MG Tab PO SCH (20:31)
[2020-01-13] MEDS: Aspirin 81 MG Tab.EC PO SCH (20:32)
[2020-01-13] MEDS: Gabapentin 100 MG Cap PO SCH (20:32)
[2020-01-13] MEDS: Carvedilol 12.5 MG Tab PO SCH (20:39)
[2020-01-14] MEDS: Morphine 2 MG/ML SYRINGE IVPUSH PRN (05:36)
[2020-01-14] MEDS: Dextrose 5%-0.9% NaCl 1,000 ML IV SCH ×2 (05:37→15:21)
[2020-01-14] MEDS ORDERED: Sertraline 50 MG Tab PO SCH (09:00)
[2020-01-14] MEDS ORDERED: Aspirin 81 MG Tab.EC PO SCH (09:00)
[2020-01-14] MEDS ORDERED: Losartan 25 MG Tab PO SCH (09:00)
[2020-01-14] MEDS ORDERED: Gabapentin 100 MG Cap PO SCH (09:00)
[2020-01-14] MEDS: Bumetanide 1 MG Tab PO SCH (09:22)
[2020-01-14] MEDS: Carvedilol 12.5 MG Tab PO SCH ×2 (09:23→21:11)
[2020-01-14] MEDS: Isosorbide Mononitrate 60 MG Tab.ER PO SCH (09:24)
[2020-01-14] MEDS: Losartan 25 MG Tab PO SCH (09:24)
[2020-01-14] MEDS: Sennosides 8.6 MG Tab PO SCH ×2 (09:25→21:18)
[2020-01-14] MEDS: Acetaminophen/HYDROcodone 325-5 MG Tab PO PRN ×3 (09:26→21:09)
[2020-01-14] MEDS: PENTOXIFYLLINE 400 MG PO SCH ×3 (09:29→21:15)
[2020-01-14] MEDS: SIMILASAN EYE EYEBOTH SCH (09:30)
[2020-01-14] MEDS ORDERED: Magnesium Sulfate/Water 2 GM in Premix Bag 1 BAG IV ONE (10:00)
--- NOTE | 2020-01-14 10:06 | CR ---
Chest: 2 views of the chest were obtained. Comparison: Previous chest x-ray of 01/13/20. Increased density within the left lung base is seen. Findings have worsened from previous chest x-ray. This either represents worsening atelectasis or pneumonia. Left upper and right lung are clear. Heart is mildly enlarged. AICD is present. Surgical clips are seen within the right axillary region. Impression: 1. Worsening density within the left lung base from prior chest x-ray either representing worsening atelectasis or worsening pneumonia. 2. Other findings as noted above which are stable. Diagnostic code #3 This report was dictated in MDT
--- NOTE | 2020-01-14 12:21 | PCM.PN ---
- General Info Date of Service: 01/14/20 Subjective Update: Still in pain but better Had a hard time sleeping due to the pain Shortness of breath is improving Tolerating diet Ambulating BM 01/11 O2 sat dropped to 89% overnight for which she was placed on 1L NC - Patient Data Vitals - Most Recent: Last Vital Signs Temp 98.1 F 01/14/20 11:15 Pulse 74 01/14/20 11:15 Resp 28 H 01/14/20 11:15 BP 107/56 L 01/14/20 11:15 Pulse Ox 92 L 01/14/20 11:15 Weight - Most Recent: 69.082 kg - Exam Quality Assessment: Supplemental Oxygen, DVT Prophylaxis. No: Skin Breakdown General: Alert, Oriented, Cooperative, No Acute Distress HEENT: Pupils Equal, Pupils Reactive, EOMI, Mucous Membr. Moist/[place] Neck: Supple, Trachea Midline, No JVD Lungs: Clear to Auscultation, Normal Respiratory Effort. No: Crackles, Rales, Rhonchi, Rub, Stridor, Wheezing Cardiovascular: Regular Rate, Regular Rhythm. No: Bradycardia, Tachycardia, Murmurs, Gallops, Rubs GI/Abdominal Exam: Normal Bowel Sounds, Soft, Non-Tender. No: Guarding, Rigid, Rebound Extremities: Normal Inspection, No Pedal Edema Neurological: No New Focal Deficit Psy/Mental Status: Normal Affect, Normal Mood Sepsis Event Note - Evaluation Sepsis Screening Result: No Definite Risk - Problem List & Annotations (1) Pneumonia SNOMED Code(s): 300572964 Code(s): J18.9 - PNEUMONIA, UNSPECIFIED ORGANISM Status: Acute Current Visit: Yes (2) Leukocytosis SNOMED Code(s): 505620543, 127890457 Code(s): D72.829 - ELEVATED WHITE BLOOD CELL COUNT, UNSPECIFIED Status: Acute Current Visit: Yes (3) Acute kidney injury SNOMED Code(s): 41344978, 01850559 Code(s): N17.9 - ACUTE KIDNEY FAILURE, UNSPECIFIED Status: Acute Current Visit: Yes (4) Chronic kidney disease SNOMED Code(s): 236886341 Code(s): N18.9 - CHRONIC KIDNEY DISEASE, UNSPECIFIED Status: Acute Current Visit: Yes (5) Hypertension SNOMED Code(s): 02949273 Code(s): I10 - ESSENTIAL (PRIMARY) HYPERTENSION Status: Acute Current Visit: Yes (6) Coronary artery disease SNOMED Code(s): 39947358 Code(s): I25.10 - ATHSCL HEART DISEASE OF [place] CORONARY ARTERY W/O ANG PCTRS Status: Acute Current Visit: Yes (7) S/P implantation of automatic cardioverter/defibrillator (AICD) SNOMED Code(s): 179081431, 269431090 Code(s): Z95.810 - PRESENCE OF AUTOMATIC (IMPLANTABLE) CARDIAC DEFIBRILLATOR Status: Acute Current Visit: Yes (8) Heart failure SNOMED Code(s): 53547292 Code(s): I50.9 - HEART FAILURE, UNSPECIFIED Status: Acute Current Visit: Yes (9) Dyslipidemia SNOMED Code(s): 095437844 Code(s): E78.5 - HYPERLIPIDEMIA, UNSPECIFIED Status: Acute Current Visit: Yes (10) Glaucoma SNOMED Code(s): 94487727 Code(s): H40.9 - UNSPECIFIED GLAUCOMA Status: Acute Current Visit: Yes (11) Macular degeneration SNOMED Code(s): 774647084 Code(s): H35.30 - UNSPECIFIED MACULAR DEGENERATION Status: Acute Current Visit: Yes (12) History of myocardial infarction SNOMED Code(s): 370657160 Code(s): I25.2 - OLD MYOCARDIAL INFARCTION Status: Acute Current Visit: Yes - Problem List Review Problem List Initiated/Reviewed/Updated: Yes - Assessment Assessment:: 01/13/20 This is a 79 year old female with past medical history of hypertension, heart failure s/p AICD placement who comes to the ED complaining of severe pain on her left chest, abdomen, back and shoulder for 5 days. Patient does not recall what she was doing when it started, she does describe it as " sharp and pulling", grades it 20/10, non radiating, it all just hurts at the same time. It is improved by staying still and worsens with taking a deep breath, lasts about 30 minutes when it happens. She did not try any kind of medications at home. She associates it with shortness of breath, [place], PND, malaise, fatigue, chills, weakness, abdominal bloating and lightheadedness Denies any fever, palpitations, near syncope, cough, runny nose, nasal congestion, neck discomfort, previous episodes, coughing, sputum, wheezing. Waited to come in because she thought this would resolve on its own. Has been following social distancing and denies any sick contacts Infiltrate seen on CT abdomen, on left lung base + Leukocytosis--> started coverage for CAP Lactic acid is normal, sepsis is ruled out Patient with history of heart failure s/p AICD placement VS on admission 114/54; 78x'; Temp 99; O2Sat 97% on RA 01/14/20 Pain improved but not resolved BP trend 90-108/52-54 Tmax 98.6 HR 80-85 Sat >89% on 1L NC GFR improved from 29-53 WBC count now normal Mg 1.4 Anemia workup: normal retic, folate, B12; low iron and vitamin D CXR with obvious infiltrate in retrocardiac space on L lung Day 2 of antibiotics Hb lower , likely due to hemodilution, no signs of blood loss - Plan Plan:: Pneumonia, stable - Continue Azithromycin and Ceftriaxone day 2 to complete 5 days - Procalcitonin follow up - Respiratory therapy f/u - Scheduled incentive spirometry - PRN DuoNebs - Taper down O2 as tolerated - Trend temperature and panculture if febrile - F/U on serology Acute on chronic kidney disease, improved Normocytic normochromic anemia, stable Hypomagnesemia - Monitor urine output - Renally dosed medications - Replace MgSO4 with 2g IV - F/U on anemia work-up Hypertension, controlled - Continue home medications - PRN Hydralazine Coronary artery disease s/p myocardial infarction Heart failure S/P implantation of automatic cardioverter/defibrillator (AICD) Dyslipidemia - Monitor for chest pain - Continue home medications - F/U AICD interrogation - Obtain records Glaucoma Macular degeneration - Continue home medications PROPHYLAXIS DVT- compression stockings GI- not indicated CODE STATUS: FULL CODE DISPOSITION: Patient will remain admitted for IV antibiotics and respiratory therapy, monitorization of oxygenation. PT is recommending home independent with tub grabbers and home safety evaluation.
[2020-01-14] MEDS: Azithromycin 500 MG in Sodium Chloride 0.9% 250 ML IV SCH (16:52)
[2020-01-14] MEDS: cefTRIAXone 2 GM in Sodium Chloride 0.9% 100 ML IV SCH (17:59)
[2020-01-14] MEDS: Aspirin 81 MG Tab.EC PO SCH (21:09)
[2020-01-14] MEDS: Gabapentin 100 MG Cap PO SCH (21:09)
[2020-01-14] MEDS: Sertraline 50 MG Tab PO SCH (21:09)
[2020-01-14] MEDS: Docusate Sodium 100 MG Cap PO SCH (21:10)
[2020-01-15] MEDS: Dextrose 5%-0.9% NaCl 1,000 ML IV SCH (04:59)
[2020-01-15] MEDS: Albuterol/Ipratropium 3.0-0.5 MG/3 ML Neb Soln NEB PRN (05:17)
[2020-01-15] MEDS: Sennosides 8.6 MG Tab PO SCH ×2 (08:08→22:30)
[2020-01-15] MEDS: Rosuvastatin 10 MG Tab PO SCH (08:08)
[2020-01-15] MEDS: Docusate Sodium 100 MG Cap PO SCH ×2 (08:08→22:25)
[2020-01-15] MEDS: Isosorbide Mononitrate 60 MG Tab.ER PO SCH (08:08)
[2020-01-15] MEDS: Carvedilol 12.5 MG Tab PO SCH ×2 (08:08→22:27)
[2020-01-15] MEDS: Bumetanide 1 MG Tab PO SCH ×2 (08:08→13:48)
[2020-01-15] MEDS: Losartan 25 MG Tab PO SCH (08:08)
[2020-01-15] MEDS: amLODIPine 2.5 MG Tab PO SCH (08:09)
[2020-01-15] MEDS: Acetaminophen/HYDROcodone 325-5 MG Tab PO PRN (08:11)
[2020-01-15] MEDS: SIMILASAN EYE EYEBOTH SCH (08:22)
[2020-01-15] MEDS ORDERED: PENTOXIFYLLINE 400 MG PO SCH (09:00)
[2020-01-15] MEDS ORDERED: Bisacodyl 10 MG Supp RECTAL ONE (09:56)
[2020-01-15] MEDS ORDERED: Dextrose 5%-0.9% NaCl 1,000 ML IV SCH (10:00)
[2020-01-15] MEDS: Potassium Chloride 20 MEQ Tab.ER PO SCH ×2 (11:20→22:28)
[2020-01-15] MEDS ORDERED: Hydrocortisone Sodium Succinate 100 MG/2 ML SDV IVPUSH ONE (13:00)
[2020-01-15] MEDS ORDERED: diphenhydrAMINE 50 MG Cap PO ONE (13:00)
[2020-01-15] MEDS ORDERED: Sodium Chloride 0.9% 10 ML Syringe FLUSH PRN (13:16)
[2020-01-15] MEDS ORDERED: Iopamidol 755 Mg/ML 100 ML Bottle IVPUSH ONE (13:16)
[2020-01-15] MEDS: Rivaroxaban 15 MG Tab PO SCH ×2 (13:25→22:25)
[2020-01-15] MEDS ORDERED: Sodium Chloride 0.9% 100 ML IV SCH (13:30)
--- NOTE | 2020-01-15 14:23 | CT ---
CT chest Technique: Multiple axial sections through the chest were obtained. Intravenous contrast was utilized. Study has been performed as a pulmonary angiogram protocol. Comparison: No prior chest CT is available. Chest x-ray of 01/14/20 is available. Findings: Bilateral breast prosthesis are noted. Small left-sided pleural effusion. Atelectasis is noted along the left major fissure inferiorly. Atelectasis is seen adjacent to the left sided is pleural effusion. Hazy groundglass appearance seen within the lungs possibly due to mild pulmonary vascular congestion. Heart is enlarged. AICD is noted. Surgical clips are seen within the right axillary region. Pulmonary arteries are well opacified. No filling defects are seen to indicate pulmonary embolism. Bone window settings were reviewed which shows nothing acute. Impression: 1. Small left-sided pleural effusion with left basilar atelectasis. 2. Hazy groundglass appearance having the appearance of possible pulmonary vascular congestion from early CHF. 3. No findings of pulmonary embolism are seen. Diagnostic code #3 This report was dictated in MDT
[2020-01-15] MEDS ORDERED: Furosemide 20 MG/2 ML VIAL IVPUSH STA (16:22)
[2020-01-15] MEDS: Azithromycin 500 MG in Sodium Chloride 0.9% 250 ML IV SCH (16:55)
[2020-01-15] MEDS: cefTRIAXone 2 GM in Sodium Chloride 0.9% 100 ML IV SCH (18:05)
[2020-01-15] MEDS: Aspirin 81 MG Tab.EC PO SCH (22:27)
[2020-01-15] MEDS: Gabapentin 100 MG Cap PO SCH (22:29)
[2020-01-15] MEDS: Sertraline 50 MG Tab PO SCH (22:30)
[2020-01-16] MEDS: Losartan 25 MG Tab PO SCH (08:59)
[2020-01-16] MEDS: Rivaroxaban 15 MG Tab PO SCH (08:59)
[2020-01-16] MEDS: Docusate Sodium 100 MG Cap PO SCH ×2 (08:59→20:32)
[2020-01-16] MEDS: Sennosides 8.6 MG Tab PO SCH ×2 (08:59→20:32)
[2020-01-16] MEDS: amLODIPine 2.5 MG Tab PO SCH (09:00)
[2020-01-16] MEDS: Potassium Chloride 20 MEQ Tab.ER PO SCH ×2 (09:00→20:34)
[2020-01-16] MEDS: Ferrous Sulfate 324 MG Tab.EC PO SCH (09:00)
[2020-01-16] MEDS: Isosorbide Mononitrate 60 MG Tab.ER PO SCH (09:01)
[2020-01-16] MEDS: Bumetanide 1 MG Tab PO SCH ×2 (09:01→17:01)
[2020-01-16] MEDS: Carvedilol 12.5 MG Tab PO SCH ×2 (09:01→20:33)
[2020-01-16] MEDS: Rosuvastatin 10 MG Tab PO SCH (09:01)
[2020-01-16] MEDS: SIMILASAN EYE EYEBOTH SCH (09:08)
[2020-01-16] MEDS ORDERED: Furosemide 20 MG/2 ML VIAL IVPUSH ONE (10:45)
--- NOTE | 2020-01-16 11:26 | PCM.PN ---
- General Info Date of Service: 01/15/20 Admission Dx/Problem (Free Text): Admission Diagnosis/Problem Admission Diagnosis/Problem Pneumonia 01/13/2020 79 year old female admitted to the floor from the ER where she presented with complaints of shortness of breath and diffused left-sided chest pain that started along the diaphragm and would radiate up towards the left shoulder for the last 3 weeks and was progressively getting worse Start Azithromycin and Ceftriaxone today to complete 5 days Procalcitonin today and every 48 hours 2 view CXR in AM Respiratory therapy eval and treat Scheduled incentive spirometry PRN DuoNebs Trend temperature and panculture if febrile 01/14/2020 Pain improved but not resolved BP trend 90-108/52-54 Tmax 98.6 HR 80-85 Sat >89% on 1L NC GFR improved from 29-53 WBC count now normal Mg 1.4 Anemia workup: normal retic, folate, B12; low iron and vitamin D CXR with obvious infiltrate in retrocardiac space on L lung Day 2 of antibiotics Hb lower , likely due to hemodilution, no signs of blood loss Still in pain but better Had a hard time sleeping due to the pain Shortness of breath is improving Tolerating diet Ambulating BM 01/11 O2 sat dropped to 89% overnight for which she was placed on 1L NC Continue Azithromycin and Ceftriaxone day 2 to complete 5 days Procalcitonin follow up Respiratory therapy f/u Scheduled incentive spirometry PRN DuoNebs Taper down O2 as tolerated Trend temperature and panculture if febrile F/U on serology Monitor urine output Renally dosed medications Replace MgSO4 with 2g IV F/U on anemia work-up Monitor for chest pain DVT- compression stockings 01/15/2020 Vital signs are stable She is wearing O2 at 1L Wearing glasses x1 assist with FWW States that she is doing well She is up in bed, watching TV, and eating States that she has a good appetite States that she is still having shortness of breath and that it still feels hard to breathe Discussed getting up and walking today to keep up her strength Discussed cutting down her IV to 50 Discussed giving potassium 20 MG x4 times today due to low levels in her labs Discussed giving her IV iron today and then starting half a tablet of iron daily due to low levels in her labs Discussed rechecking labs Discussed her chronic constipation and giving her a suppository to help her have a bowel movement 01/16/20 afebrile doing better but still whezy . hypoxia now on 1 liter and ambulated yest . pleurisy better on motirn . angiogram no p.e and lll atelectasis and gg appearance suggests pneumonia improving . neuro alert and oriented. carotids decreased no bruits . lungs crackles lll but decreased from yest. cor rrr with occ pvc sinus abd /back wnl. lab k 2.9 mg pending. chf with left pleural effusion improved with diuretics . pleurisy related to left pneumonia and effusion and no evidence of p.e/ ami or pericarditis but heart enlarged and echo ordered . plan home in am if cont to wean and improve. add spironolactone 50 mg day sec to hypokalemia and chf Subjective Update: 01/15/2020 Vital signs are stable She is wearing O2 at 1L Wearing glasses x1 assist with FWW States that she is doing well She is up in bed, watching TV, and eating States that she has a good appetite States that she is still having shortness of breath and that it still feels hard to breathe Discussed getting up and walking today to keep up her strength Discussed cutting down her IV to 50 Discussed giving potassium 20 MG x4 times today due to low levels in her labs Discussed giving her IV iron today and then starting half a tablet of iron daily due to low levels in her labs Discussed rechecking labs Discussed her chronic constipation and giving her a suppository to help her have a bowel movement Functional Status: Reports: Pain Controlled - Review of Systems General: Reports: No Symptoms HEENT: Reports: Glasses Pulmonary: Reports: Shortness of Breath Cardiovascular: Reports: Dyspnea on Exertion Gastrointestinal: Reports: Constipation Genitourinary: Reports: No Symptoms Musculoskeletal: Reports: No Symptoms Skin: Reports: No Symptoms Neurological: Reports: No Symptoms Psychiatric: Reports: No Symptoms - Patient Data Vitals - Most Recent: Last Vital Signs Temp 97.9 F 01/15/20 07:10 Pulse 72 01/15/20 08:08 Resp 24 H 01/15/20 07:10 BP 113/71 01/15/20 08:09 Pulse Ox 94 L 01/15/20 07:10 Weight - Most Recent: 71.668 kg I&O - Last 24 Hours: Intake & Output 01/14/20 01/15/20 01/15/20 22:59 06:59 14:59 Intake Total 1830 1165 240 Output Total 800 600 Balance 1030 565 240 Lab Results Last 24 Hours: Laboratory Results - last 24 hr 01/13/20 01/15/20 01/15/20 Range/Units 13:49 05:45 05:45 WBC 6.37 (3.98-10.04) K/mm3 RBC 3.00 L (3.98-5.22) M/mm3 Hgb 8.8 L (11.2-15.7) gm/dl Hct 28.2 L (34.1-44.9) % MCV 94.0 (79.4-94.8) fl MCH 29.3 (25.6-32.2) pg MCHC 31.2 L (32.2-35.5) g/dl RDW Std Deviation 46.3 (36.4-46.3) fL Plt Count 208 (182-369) K/mm3 MPV 9.6 (9.4-12.3) fl Neut % (Auto) 63.6 (34.0-71.1) % Lymph % (Auto) 22.0 (19.3-51.7) % [place] % (Auto) 12.2 (4.7-12.5) % Eos % (Auto) 1.7 (0.7-5.8) Baso % (Auto) 0.3 (0.1-1.2) % Neut # (Auto) 4.05 (1.56-6.13) K/mm3 Lymph # (Auto) 1.40 (1.18-3.74) K/mm3 [place] # (Auto) 0.78 H (0.24-0.36) K/mm3 Eos # (Auto) 0.11 (0.04-0.36) K/mm3 Baso # (Auto) 0.02 (0.01-0.08) K/mm3 Percent Retic (0.50-1.70) % D-Dimer, Quantitative (0.19-0.50) mg/L Sodium 144 (136-145) mEq/L Potassium 3.2 L (3.5-5.1) mEq/L Chloride 110 H (98-107) mEq/L Carbon Dioxide 22 (21-32) mEq/L Anion Gap 15.2 H (5-15) BUN 17 (7-18) mg/dL Creatinine 0.8 (0.55-1.02) mg/dL Est Cr Clr Drug Dosing 45.10 mL/min Estimated GFR (MDRD) > 60 (>60) mL/min BUN/Creatinine Ratio 21.3 H (14-18) Glucose 106 (83-115) mg/dL Calcium 6.5 L (8.5-10.1) mg/dL Phosphorus 2.5 L (2.6-4.7) mg/dL Magnesium 1.8 (1.8-2.4) mg/dl Troponin I (0.00-0.056) ng/mL NT-Pro-B Natriuret Pep (0-450) pg/mL Procalcitonin <0.05 (<0.10) ng/mL 01/15/20 01/15/20 01/15/20 Range/Units 09:48 09:48 09:48 WBC (3.98-10.04) K/mm3 RBC (3.98-5.22) M/mm3 Hgb (11.2-15.7) gm/dl Hct (34.1-44.9) % MCV (79.4-94.8) fl MCH (25.6-32.2) pg MCHC (32.2-35.5) g/dl RDW Std Deviation (36.4-46.3) fL Plt Count (182-369) K/mm3 MPV (9.4-12.3) fl Neut % (Auto) (34.0-71.1) % Lymph % (Auto) (19.3-51.7) % [place] % (Auto) (4.7-12.5) % Eos % (Auto) (0.7-5.8) Baso % (Auto) (0.1-1.2) % Neut # (Auto) (1.56-6.13) K/mm3 Lymph # (Auto) (1.18-3.74) K/mm3 [place] # (Auto) (0.24-0.36) K/mm3 Eos # (Auto) (0.04-0.36) K/mm3 Baso # (Auto) (0.01-0.08) K/mm3 Percent Retic 1.30 (0.50-1.70) % D-Dimer, Quantitative (0.19-0.50) mg/L Sodium (136-145) mEq/L Potassium (3.5-5.1) mEq/L Chloride (98-107) mEq/L Carbon Dioxide (21-32) mEq/L Anion Gap (5-15) BUN (7-18) mg/dL Creatinine (0.55-1.02) mg/dL Est Cr Clr Drug Dosing mL/min Estimated GFR (MDRD) (>60) mL/min BUN/Creatinine Ratio (14-18) Glucose (83-115) mg/dL Calcium (8.5-10.1) mg/dL Phosphorus (2.6-4.7) mg/dL Magnesium (1.8-2.4) mg/dl Troponin I < 0.017 (0.00-0.056) ng/mL NT-Pro-B Natriuret Pep 1428 H (0-450) pg/mL Procalcitonin (<0.10) ng/mL 01/15/20 Range/Units 09:48 WBC (3.98-10.04) K/mm3 RBC (3.98-5.22) M/mm3 Hgb (11.2-15.7) gm/dl Hct (34.1-44.9) % MCV (79.4-94.8) fl MCH (25.6-32.2) pg MCHC (32.2-35.5) g/dl RDW Std Deviation (36.4-46.3) fL Plt Count (182-369) K/mm3 MPV (9.4-12.3) fl Neut % (Auto) (34.0-71.1) % Lymph % (Auto) (19.3-51.7) % [place] % (Auto) (4.7-12.5) % Eos % (Auto) (0.7-5.8) Baso % (Auto) (0.1-1.2) % Neut # (Auto) (1.56-6.13) K/mm3 Lymph # (Auto) (1.18-3.74) K/mm3 [place] # (Auto) (0.24-0.36) K/mm3 Eos # (Auto) (0.04-0.36) K/mm3 Baso # (Auto) (0.01-0.08) K/mm3 Percent Retic (0.50-1.70) % D-Dimer, Quantitative 3.85 H (0.19-0.50) mg/L Sodium (136-145) mEq/L Potassium (3.5-5.1) mEq/L Chloride (98-107) mEq/L Carbon Dioxide (21-32) mEq/L Anion Gap (5-15) BUN (7-18) mg/dL Creatinine (0.55-1.02) mg/dL Est Cr Clr Drug Dosing mL/min Estimated GFR (MDRD) (>60) mL/min BUN/Creatinine Ratio (14-18) Glucose (83-115) mg/dL Calcium (8.5-10.1) mg/dL Phosphorus (2.6-4.7) mg/dL Magnesium (1.8-2.4) mg/dl Troponin I (0.00-0.056) ng/mL NT-Pro-B Natriuret Pep (0-450) pg/mL Procalcitonin (<0.10) ng/mL Nii Results Last 24 Hours: Microbiology 01/14/20 05:40 Streptococcus pneumoniae Antigen (M - Final Urine 01/13/20 13:49 Aerobic Blood Culture - Preliminary Blood - Venous - Lab Draw NO GROWTH AFTER 1 DAY Anaerobic Blood Culture - Preliminary NO GROWTH AFTER 1 DAY 01/13/20 13:39 Aerobic Blood Culture - Preliminary Blood - Venous NO GROWTH AFTER 1 DAY Anaerobic Blood Culture - Preliminary NO GROWTH AFTER 1 DAY Med Orders - Current: Current Medications Acetaminophen (Tylenol) 650 mg PO Q4H PRN PRN Reason: Pain (mild 1-3) Hydrocodone Bitart/Acetaminophen ([place] 325-5 Mg) 1 tab PO Q4H PRN PRN Reason: Pain (moderate 4-6) Last Admin: 01/15/20 08:11 Dose: 1 tab Documented by: Albuterol/Ipratropium (Duoneb 3.0-0.5 Mg/3 Ml) 3 ml NEB Q4HRRT PRN PRN Reason: Wheezing Last Admin: 01/15/20 05:17 Dose: 3 ml Documented by: Amlodipine Besylate (Norvasc) 2.5 mg PO DAILY [facility] Last Admin: 01/15/20 08:09 Dose: 2.5 mg Documented by: Aspirin (Halfprin) 81 mg PO BEDTIME [facility] Last Admin: 01/14/20 21:09 Dose: 81 mg Documented by: Benzonatate (Tessalon Perles) 100 mg PO TID PRN PRN Reason: Cough Bumetanide (Bumex) 2 mg PO DAILY [facility] Last Admin: 01/15/20 08:08 Dose: 2 mg Documented by: Bumetanide (Bumex) 1 mg PO 1300 [facility] Carvedilol (Coreg) 25 mg PO BID [facility] Last Admin: 01/15/20 08:08 Dose: 25 mg Documented by: Docusate Sodium (Colace) 100 mg PO BID [facility] Last Admin: 01/15/20 08:08 Dose: 100 mg Documented by: Ferrous Sulfate (Ferrous Sulfate) 162 mg PO DAILY [facility] Gabapentin (Neurontin) 400 mg PO BEDTIME [facility] Last Admin: 01/14/20 21:09 Dose: 400 mg Documented by: Guaifenesin (Mucinex) 600 mg PO BID PRN PRN Reason: Cough Hydralazine HCl (Apresoline) 10 mg IVPUSH Q2H PRN PRN Reason: Hypertension Azithromycin 500 mg/ Sodium (Chloride) 250 mls @ 250 mls/hr IV Q24H [facility] Stop: 01/17/20 17:59 Last Admin: 01/14/20 16:52 Dose: 250 mls/hr Documented by: Ceftriaxone Sodium 2 gm/ (Sodium Chloride) 100 mls @ 200 mls/hr IV Q24H [facility] Stop: 01/17/20 18:29 Last Admin: 01/14/20 17:59 Dose: 200 mls/hr Documented by: Dextrose/Sodium Chloride (Dextrose 5%-Normal Saline) 1,000 mls @ 50 mls/hr IV ASDIRECTED [facility] Ferric Sodium Gluconate Complex 250 mg/ Sodium Chloride 120 mls @ 60 mls/hr IV ONETIME ONE Stop: 01/15/20 12:59 Last Admin: 01/15/20 11:20 Dose: 60 mls/hr Documented by: Isosorbide Mononitrate (Imdur) 60 mg PO DAILY [facility] Last Admin: 01/15/20 08:08 Dose: 60 mg Documented by: Losartan Potassium (Cozaar) 25 mg PO DAILY [facility] Last Admin: 01/15/20 08:08 Dose: 25 mg Documented by: Ondansetron HCl (Zofran Odt) 4 mg PO Q6H PRN PRN Reason: nausea, able to take PO Ondansetron HCl (Zofran) 4 mg IV Q6H PRN PRN Reason: Nausea/Vomiting Similasan Eye Drop 1 (Drop) 0 each EYEBOTH DAILY [facility] Last Admin: 01/15/20 08:22 Dose: Not Given Documented by: Pentoxifylline 400 (Mg) 0 each PO TID [facility] Potassium Chloride (Klor-Con M20) 20 meq PO BID [facility] Last Admin: 01/15/20 11:20 Dose: 20 meq Documented by: Rosuvastatin Calcium (Crestor) 20 mg PO DAILY [facility] Last Admin: 01/15/20 08:08 Dose: 20 mg Documented by: Senna (Senna) 8.6 mg PO BID [facility] Last Admin: 01/15/20 08:08 Dose: 8.6 mg Documented by: Sertraline HCl (Zoloft) 50 mg PO BEDTIME [facility] Last Admin: 01/14/20 21:09 Dose: 50 mg Documented by: Discontinued Medications Aspirin (Halfprin) 81 mg PO DAILY [facility] Bisacodyl (Dulcolax) 10 mg RECTAL ONETIME ONE Stop: 01/15/20 09:57 Last Admin: 01/15/20 11:20 Dose: 10 mg Documented by: Gabapentin (Neurontin) 400 mg PO DAILY [facility] Hydromorphone HCl (Dilaudid) 0.25 mg IVPUSH ONETIME ONE Stop: 01/13/20 13:15 Last Admin: 01/13/20 13:56 Dose: 0.25 mg Documented by: Dextrose/Sodium Chloride (Dextrose 5%-Normal Saline) 1,000 mls @ 100 mls/hr IV ASDIRECTED [facility] Last Admin: 01/15/20 04:59 Dose: 100 mls/hr Documented by: Ceftriaxone Sodium 2 gm/ (Sodium Chloride) 100 mls @ 200 mls/hr IV Q24H [facility] Last Admin: 01/13/20 16:34 Dose: 200 mls/hr Documented by: Azithromycin 500 mg/ Sodium (Chloride) 250 mls @ 250 mls/hr IV ONETIME ONE Stop: 01/13/20 18:30 Last Admin: 01/13/20 17:54 Dose: 250 mls/hr Documented by: Magnesium Sulfate 2 gm/ Premix 50 mls @ 25 mls/hr IV ONETIME ONE Stop: 01/14/20 11:59 Last Admin: 01/14/20 10:30 Dose: 25 mls/hr Documented by: Losartan Potassium (Cozaar) 50 mg PO DAILY [facility] Morphine Sulfate (Morphine) 2 mg IVPUSH Q4H PRN PRN Reason: Pain (severe 7-10) Stop: 01/14/20 17:44 Last Admin: 01/14/20 05:36 Dose: 2 mg Documented by: Ondansetron HCl (Zofran) 4 mg IVPUSH ONETIME ONE Stop: 01/13/20 13:15 Last Admin: 01/13/20 13:54 Dose: 4 mg Documented by: Pentoxifylline 400 (Mg) 0 each PO TID [facility] Last Admin: 01/14/20 21:15 Dose: Not Given Documented by: Sertraline HCl (Zoloft) 50 mg PO DAILY [facility] - Exam Quality Assessment: Supplemental Oxygen General: Alert, Oriented HEENT: Pupils Equal, Pupils Reactive, EOMI, Mucous Membr. Moist/[place] Neck: Supple Lungs: Clear to Auscultation Cardiovascular: Regular Rate, Regular Rhythm GI/Abdominal Exam: Normal Bowel Sounds, Soft, Non-Tender, No Organomegaly, No Distention, No Abnormal Bruit, No Mass, Pelvis Stable Back Exam: Normal Inspection, Full Range of Motion Extremities: Normal Inspection, Normal Range of Motion, Non-Tender, No Pedal Edema, Normal Capillary Refill Skin: Warm, Dry, Intact Neurological: No New Focal Deficit Psy/Mental Status: Alert, Normal Affect, Normal Mood Sepsis Event Note - Evaluation Sepsis Screening Result: No Definite Risk - Focused Exam Vital Signs: Vital Signs Temp Pulse Resp BP Pulse Ox Pulse Ox 01/15/20 08:09 113/71 01/15/20 08:08 72 113/71 01/15/20 07:10 97.9 F 72 24 H 113/71 94 L 01/15/20 05:18 92 L 01/15/20 05:04 98.1 F 71 18 116/72 92 L Date Exam was Performed: 01/16/20 Time Exam was Performed: 10:54 - Problem List & Annotations (1) Heart failure SNOMED Code(s): 43467295 Code(s): I50.9 - HEART FAILURE, UNSPECIFIED Status: Acute Priority: Medium Current Visit: Yes Onset Date: ~01/16/20 Qualifiers: Heart failure type: right heart failure due to left heart failure Qualified Code(s): I50.814 - Right heart failure due to left heart failure (2) Hypertension SNOMED Code(s): 48666231 Code(s): I10 - ESSENTIAL (PRIMARY) HYPERTENSION Status: Acute Priority: Medium Current Visit: Yes Onset Date: ~01/16/20 Qualifiers: Hypertension type: essential hypertension Qualified Code(s): I10 - Essential (primary) hypertension Annotation/Comment:: wheezing still present and hypoxia still requiring 2 liters/ cont lasix (3) Pneumonia SNOMED Code(s): 216741398 Code(s): J18.9 - PNEUMONIA, UNSPECIFIED ORGANISM Status: Acute Priority: Medium Current Visit: Yes Onset Date: ~01/16/20 Qualifiers: Lung location: lower lobe of lung Annotation/Comment:: still having sign hypoxia and cont current antibiotic with negative angiogram yesterday ( other than infiltrate left lower lobe and atelectasis with effusion ) no evidence of any other process ongoing other than mild chf tendency / trop normal . ekg lbbb sinus rythm with nom spec t wave inversion suggesting lvh with lbbb findings. (4) History of myocardial infarction SNOMED Code(s): 873321319 Code(s): I25.2 - OLD MYOCARDIAL INFARCTION Status: Acute Priority: Low Current Visit: Yes Onset Date: ~01/16/20 Annotation/Comment:: no evidence of new mi by trop or ekg changes but lbbb old.chest pain with pleuritic quality no increase with position changes and better down to 2 . neg pulm angiogram for p.e . fever and leukocytosis better (5) Hypokalemia due to loss of potassium SNOMED Code(s): 64326836 Code(s): E87.6 - HYPOKALEMIA Status: Acute Priority: Medium Current Visit: Yes Onset Date: ~01/14/20 - Problem List Review Problem List Initiated/Reviewed/Updated: Yes - Assessment Assessment:: 01/13/2020 79 year old female admitted to the floor from the ER where she presented with complaints of shortness of breath and diffused left-sided chest pain that started along the diaphragm and would radiate up towards the left shoulder for the last 3 weeks and was progressively getting worse Start Azithromycin and Ceftriaxone today to complete 5 days Procalcitonin today and every 48 hours 2 view CXR in AM Respiratory therapy eval and treat Scheduled incentive spirometry PRN DuoNebs Trend temperature and panculture if febrile 01/14/2020 Pain improved but not resolved BP trend 90-108/52-54 Tmax 98.6 HR 80-85 Sat >89% on 1L NC GFR improved from 29-53 WBC count now normal Mg 1.4 Anemia workup: normal retic, folate, B12; low iron and vitamin D CXR with obvious infiltrate in retrocardiac space on L lung Day 2 of antibiotics Hb lower , likely due to hemodilution, no signs of blood loss Still in pain but better Had a hard time sleeping due to the pain Shortness of breath is improving Tolerating diet Ambulating BM 01/11 O2 sat dropped to 89% overnight for which she was placed on 1L NC Continue Azithromycin and Ceftriaxone day 2 to complete 5 days Procalcitonin follow up Respiratory therapy f/u Scheduled incentive spirometry PRN DuoNebs Taper down O2 as tolerated Trend temperature and panculture if febrile F/U on serology Monitor urine output Renally dosed medications Replace MgSO4 with 2g IV F/U on anemia work-up Monitor for chest pain DVT- compression stockings 01/15/2020 Vital signs are stable She is wearing O2 at 1L Wearing glasses x1 assist with FWW States that she is doing well She is up in bed, watching TV, and eating States that she has a good appetite States that she is still having shortness of breath and that it still feels hard to breathe Discussed getting up and walking today to keep up her strength Discussed cutting down her IV to 50 Discussed giving potassium 20 MG x4 times today due to low levels in her labs Discussed giving her IV iron today and then starting half a tablet of iron daily due to low levels in her labs Discussed rechecking labs Discussed her chronic constipation and giving her a suppository to help her have a bowel movement - Plan Plan:: 01/15/2020 Vital signs are stable She is wearing O2 at 1L Wearing glasses x1 assist with FWW States that she is doing well She is up in bed, watching TV, and eating States that she has a good appetite States that she is still having shortness of breath and that it still feels hard to breathe Discussed getting up and walking today to keep up her strength Discussed cutting down her IV to 50 Discussed giving potassium 20 MG x4 times today due to low levels in her labs Discussed giving her IV iron today and then starting half a tablet of iron daily due to low levels in her labs Discussed rechecking labs Discussed her chronic constipation and giving her a suppository to help her have a bowel movement 01/16/20 afebrile doing better but still whezy . hypoxia now on 1 liter and ambulated yest . pleurisy better on motirn . angiogram no p.e and lll atelectasis and gg appearance suggests pneumonia improving . neuro alert and oriented. carotids decreased no bruits . lungs crackles lll but decreased from yest. cor rrr with occ pvc sinus abd /back wnl. lab k 2.9 mg pending. chf with left pleural effusion improved with diuretics . pleurisy related to left pneumonia and effusion and no evidence of p.e/ ami or pericarditis but heart enlarged and echo ordered . plan home in am if cont to wean and improve. add spironolactone 50 mg day sec to hypokalemia and chf
[2020-01-16] MEDS: Potassium Chloride 10 MEQ in Premix Bag 1 BAG IV SCH ×4 (11:33→15:31)
[2020-01-16] MEDS: Albuterol/Ipratropium 3.0-0.5 MG/3 ML Neb Soln NEB PRN (12:59)
[2020-01-16] MEDS: Azithromycin 500 MG in Sodium Chloride 0.9% 250 ML IV SCH (17:00)
[2020-01-16] MEDS ORDERED: Magnesium Sulfate/Water 4 GM in Premix Bag 1 BAG IV ONE (18:00)
[2020-01-16] MEDS: cefTRIAXone 2 GM in Sodium Chloride 0.9% 100 ML IV SCH (18:32)
[2020-01-16] MEDS: Aspirin 81 MG Tab.EC PO SCH (20:33)
[2020-01-16] MEDS: Sertraline 50 MG Tab PO SCH (20:33)
[2020-01-16] MEDS: Gabapentin 100 MG Cap PO SCH (20:34)
[2020-01-17] MEDS: Bumetanide 1 MG Tab PO SCH ×2 (08:41→12:38)
[2020-01-17] MEDS: Potassium Chloride 20 MEQ Tab.ER PO SCH ×2 (08:42→21:46)
[2020-01-17] MEDS: Losartan 25 MG Tab PO SCH ×2 (08:42→11:23)
[2020-01-17] MEDS: amLODIPine 2.5 MG Tab PO SCH (08:42)
[2020-01-17] MEDS: Rosuvastatin 10 MG Tab PO SCH (08:42)
[2020-01-17] MEDS: Carvedilol 12.5 MG Tab PO SCH ×2 (08:43→21:47)
[2020-01-17] MEDS: Sennosides 8.6 MG Tab PO SCH ×2 (08:43→21:43)
[2020-01-17] MEDS: Docusate Sodium 100 MG Cap PO SCH ×2 (08:43→21:43)
[2020-01-17] MEDS: Ferrous Sulfate 324 MG Tab.EC PO SCH (08:43)
[2020-01-17] MEDS: Isosorbide Mononitrate 60 MG Tab.ER PO SCH ×2 (08:44→21:49)
[2020-01-17] MEDS: SIMILASAN EYE EYEBOTH SCH (08:47)
--- NOTE | 2020-01-17 10:42 | CR ---
Chest: 2 views of the chest were obtained. There are some: Prior chest x-ray of 01/14/20. Atelectasis and small left-sided pleural effusion is seen. Left lower lobe atelectasis appears to be changing and most likely is slightly improved. Lungs otherwise are clear. Heart size is mildly enlarged. AICD is noted. Surgical clips seen within the right axillary region. Bony structures show scattered degenerative change within the spine. Impression: 1. Continuing increased density within left lung base. Findings are felt to be minimally improved. 2. Other stable findings. Diagnostic code #3 This report was dictated in [facility]T
[2020-01-17] MEDS ORDERED: Spironolactone 25 MG Tab PO ONE (10:54)
[2020-01-17] MEDS ORDERED: Lactated Ringers 1,000 ML IV SCH (11:15)
[2020-01-17] MEDS: Potassium Chloride 10 MEQ in Premix Bag 1 BAG IV SCH ×4 (11:22→14:42)
--- NOTE | 2020-01-17 13:04 | PCM.DCSUM1 ---
Discharge Summary - Hospital Course HPI Initial Comments: Admission Diagnosis/Problem Pneumonia 01/13/2020 79 year old female admitted to the floor from the ER where she presented with complaints of shortness of breath and diffused left-sided chest pain that started along the diaphragm and would radiate up towards the left shoulder for the last 3 weeks and was progressively getting worse Start Azithromycin and Ceftriaxone today to complete 5 days Procalcitonin today and every 48 hours 2 view CXR in AM Respiratory therapy eval and treat Scheduled incentive spirometry PRN DuoNebs Trend temperature and panculture if febrile 01/14/2020 Pain improved but not resolved BP trend 90-108/52-54 Tmax 98.6 HR 80-85 Sat >89% on 1L NC GFR improved from 29-53 WBC count now normal Mg 1.4 Anemia workup: normal retic, folate, B12; low iron and vitamin D CXR with obvious infiltrate in retrocardiac space on L lung Day 2 of antibiotics Hb lower , likely due to hemodilution, no signs of blood loss Still in pain but better Had a hard time sleeping due to the pain Shortness of breath is improving Tolerating diet Ambulating BM 01/11 O2 sat dropped to 89% overnight for which she was placed on 1L NC Continue Azithromycin and Ceftriaxone day 2 to complete 5 days Procalcitonin follow up Respiratory therapy f/u Scheduled incentive spirometry PRN DuoNebs Taper down O2 as tolerated Trend temperature and panculture if febrile F/U on serology Monitor urine output Renally dosed medications Replace MgSO4 with 2g IV F/U on anemia work-up Monitor for chest pain DVT- compression stockings 01/15/2020 Vital signs are stable She is wearing O2 at 1L Wearing glasses x1 assist with FWW States that she is doing well She is up in bed, watching TV, and eating States that she has a good appetite States that she is still having shortness of breath and that it still feels hard to breathe Discussed getting up and walking today to keep up her strength Discussed cutting down her IV to 50 Discussed giving potassium 20 MG x4 times today due to low levels in her labs Discussed giving her IV iron today and then starting half a tablet of iron daily due to low levels in her labs Discussed rechecking labs Discussed her chronic constipation and giving her a suppository to help her have a bowel movement 01/16/20 afebrile doing better but still whezy . hypoxia now on 1 liter and ambulated yest . pleurisy better on motirn . angiogram no p.e and lll atelectasis and gg appearance suggests pneumonia improving . neuro alert and oriented. carotids decreased no bruits . lungs crackles lll but decreased from yest. cor rrr with occ pvc sinus abd /back wnl. lab k 2.9 mg pending. chf with left pleural effusion improved with diuretics . pleurisy related to left pneumonia and effusion and no evidence of p.e/ ami or pericarditis but heart enlarged and echo ordered . plan home in am if cont to wean and improve. add spironolactone 50 mg day sec to hypokalemia and chf Subjective Update: 01/15/2020 Vital signs are stable She is wearing O2 at 1L Wearing glasses x1 assist with FWW States that she is doing well She is up in bed, watching TV, and eating States that she has a good appetite States that she is still having shortness of breath and that it still feels hard to breathe Discussed getting up and walking today to keep up her strength Discussed cutting down her IV to 50 Discussed giving potassium 20 MG x4 times today due to low levels in her labs Discussed giving her IV iron today and then starting half a tablet of iron daily due to low levels in her labs Discussed rechecking labs Discussed her chronic constipation and giving her a suppository to help her have a bowel movement Functional Status: Reports: Pain Controlled - Review of Systems General: Reports: No Symptoms HEENT: Reports: Glasses Pulmonary: Reports: Shortness of Breath Cardiovascular: Reports: Dyspnea on Exertion Gastrointestinal: Reports: Constipation Genitourinary: Reports: No Symptoms Musculoskeletal: Reports: No Symptoms Skin: Reports: No Symptoms Neurological: Reports: No Symptoms Psychiatric: Reports: No Symptoms - Patient Data Vitals - Most Recent: Last Vital Signs Temp 97.9 F 01/15/20 07:10 Pulse 72 01/15/20 08:08 Resp 24 H 01/15/20 07:10 BP 113/71 01/15/20 08:09 Pulse Ox 94 L 01/15/20 07:10 Weight - Most Recent: 71.668 kg I&O - Last 24 Hours: - Discharge Data Discharge Date: 01/17/20 Discharge Disposition: Home, Self-Care 01 Condition: Good - Referral to Home Health Date of Face to Face Encounter: 01/17/20 Primary Care Physician: Tre Perrin MD - Discharge Diagnosis/Problem(s) (1) Heart failure SNOMED Code(s): 83572265 ICD Code: I50.9 - HEART FAILURE, UNSPECIFIED Status: Acute Priority: Medium Current Visit: Yes Onset Date: ~01/16/20 Problem Details: echo ordered as o.p . Qualifiers: Heart failure type: combined systolic and diastolic Heart failure chronicity: acute on chronic Qualified Code(s): I50.43 - Acute on chronic combined systolic (congestive) and diastolic (congestive) heart failure (2) Hypertension SNOMED Code(s): 15382689 ICD Code: I10 - ESSENTIAL (PRIMARY) HYPERTENSION Status: Acute Priority: Medium Current Visit: Yes Onset Date: ~01/16/20 Problem Details: wheezing still present and hypoxia still requiring 2 liters/ cont lasix . very difficult to wean and continued findings on xray lll. start spironolactone Qualifiers: Hypertension type: essential hypertension Qualified Code(s): I10 - Essential (primary) hypertension (3) Pneumonia SNOMED Code(s): 146020231 ICD Code: J18.9 - PNEUMONIA, UNSPECIFIED ORGANISM Status: Acute Priority: Medium Current Visit: Yes Onset Date: ~01/16/20 Problem Details: still having sign hypoxia and cont current antibiotic with negative angiogram yesterday ( other than infiltrate left lower lobe and atelectasis with effusion ) no evidence of any other process ongoing other than mild chf tendency / trop normal . ekg lbbb sinus rythm with nom spec t wave inversion suggesting lvh with lbbb findings. Qualifiers: Pneumonia type: due to unspecified organism Laterality: left Lung location: lower lobe of lung Qualified Code(s): J18.9 - Pneumonia, unspecified organism (4) History of myocardial infarction SNOMED Code(s): 278589351 ICD Code: I25.2 - OLD MYOCARDIAL INFARCTION Status: Acute Priority: Low Current Visit: Yes Onset Date: ~01/16/20 Problem Details: no evidence of new mi by trop or ekg changes but lbbb old.chest pain with pleuritic quality no increase with position changes and better down to 2 . neg pulm angiogram for p.e . fever and leukocytosis better (5) Hypokalemia due to loss of potassium SNOMED Code(s): 76260924 ICD Code: E87.6 - HYPOKALEMIA Status: Acute Priority: Medium Current Visit: Yes Onset Date: ~01/14/20 Problem Details: persistant hypokalemia despite replacment and increased losartinaa nd added spironolactone and recheck in 48 hours (6) Pneumonia SNOMED Code(s): 113827159 ICD Code: J18.9 - PNEUMONIA, UNSPECIFIED ORGANISM Status: Acute Priority: Medium Current Visit: Yes Problem Details: weaned off o2 with sats borderline . chf improved and diuresing well but k low / start spironiolactone and increase losartin . Qualifiers: Laterality: left Lung location: lower lobe of lung (7) Atypical chest pain SNOMED Code(s): 270868659 ICD Code: R07.89 - OTHER CHEST PAIN Status: Acute Priority: Low Current Visit: No Onset Date: ~01/14/20 Problem Details: pleurasy resolved. - Patient Summary/Data Consults: Consultations 01/13/20 17:40 OT Evaluation and Treatment [CONS] Routine PT Evaluation and Treatment [CONS] Routine Labs Pending at D/C: repeat paneel 8 48 hours Recommended Follow-up Testing/Procedures: primary care 48 hours - Patient Instructions Diet: Regular Diet as Tolerated Activity: As Tolerated Notify Provider of: Fever, Increased Pain, Nausea and/or Vomiting Other/Special Instructions: see primary md and get [facility] - Discharge Plan *PRESCRIPTION DRUG MONITORING PROGRAM REVIEWED*: Not Applicable *COPY OF PRESCRIPTION DRUG MONITORING REPORT IN PATIENT KATHY: Not Applicable Prescriptions/Med Rec: Losartan [Cozaar] 50 mg PO DAILY #30 tablet Sennosides [Natural Laxative] 8.6 mg PO ACDINNER #90 tablet Home Medications: Home Meds Aspirin [Halfprin] 81 mg PO BEDTIME 10/05/15 [History] Bumetanide [Bumex] 2 mg PO DAILY 10/05/15 [History] Calcium Carb,Gluc/Mag Ox,Gluc [Calcium Magnesium Caplet] 1 tab PO DAILY 10/05/15 [History] Calcium Carbonate/Vitamin D3 [Caltrate 600 Plus D3 Tablet] 1 tab PO DAILY 10/05/15 [History] Docusate Sodium [Colace] 100 mg PO BID 10/05/15 [History] Fish Oil/DHA/EPA [Fish Oil 1,200 MG] 1 tab PO BID 10/05/15 [History] Gabapentin [Neurontin] 400 mg PO DAILY 10/05/15 [History] Isosorbide Mononitrate [Imdur] 60 mg PO BID 10/05/15 [History] Losartan [Cozaar] 25 mg PO DAILY 10/05/15 [History] Nitroglycerin [Nitrostat] 0.4 mg SL Q5M PRN 10/05/15 [History] Sertraline [Zoloft] 50 mg PO DAILY 10/05/15 [History] Vitamin B Complex [B Complex] 1 tab PO DAILY 10/05/15 [History] carvediloL [Coreg] 25 mg PO BID 10/05/15 [History] Potassium Chloride 20 meq PO BID 04/23/16 [History] Pantoprazole [ProTONIX] 40 mg PO BIDAC #60 tab.cr 04/24/16 [Rx] Albuterol [Ventolin HFA] 1 puff INH Q6HR PRN 01/14/20 [History] Bumetanide [Bumex] 1 mg PO 1300 01/14/20 [History] Denosumab [Prolia] 1 ml SUBCUT ASDIRECTED 01/14/20 [History] Rosuvastatin [Crestor] 20 mg PO DAILY 01/14/20 [History] Aspirin [Halfprin] 81 mg PO BEDTIME tab.ec 01/17/20 [Rx] Docusate Sodium [Colace] 100 mg PO BID cap 01/17/20 [Rx] Ferrous Sulfate 162 mg PO DAILY tab.ec 01/17/20 [Rx] Isosorbide Mononitrate [Imdur] 60 mg PO DAILY tab.er 01/17/20 [Rx] Losartan [Cozaar] 50 mg PO DAILY #30 tablet 01/17/20 [Rx] Patient's Own Medication [Ptom] 0 each EYEBOTH DAILY each 01/17/20 [Rx] Sennosides [Natural Laxative] 8.6 mg PO ACDINNER #90 tablet 01/17/20 [Rx] Sertraline [Zoloft] 50 mg PO BEDTIME tablet 01/17/20 [Rx] Oxygen Therapy Mode: Room Air Patient Handouts: Heart Failure, Self Care, Heart Failure Action Plan, Sepsis, Diagnosis, Adult, Community-Acquired Pneumonia, Adult Forms: ED Department Discharge Referrals: Tre Perrin MD [Primary Care Provider] - - Discharge Summary/Plan Comment DC Time >30 min.: Yes Discharge Summary/Plan Comment: f/u with Dr. Perrin/ repeat panel 8 /mag a nd nt bnp/cbc and d dimer . recommended - General Info Date of Service: 01/17/20 Admission Dx/Problem (Free Text: Admit Problem/Dx: Admission Diagnosis/Problem Admission Diagnosis/Problem Pneumonia - History of Present Illness Initial Comments - Free Text/Narative: This is a 79 year old female with past medical history of hypertension, heart failure s/p AICD placement who comes to the ED complaining of severe pain on her left chest, abdomen, back and shoulder for 5 days. Patient does not recall what she was doing when it started, she does describe it as " sharp and pulling", grades it 20/10, non radiating, it all just hurts at the same time. It is improved by staying still and worsens with taking a deep breath, lasts about 30 minutes when it happens. She did not try any kind of medications at home. She associates it with shortness of breath, DEW[place], PND, malaise, fatigue, chills, weakness, abdominal bloating and lightheadedness Denies any fever, palpitations, near syncope, cough, runny nose, nasal congestion, neck discomfort, previous episodes, coughing, sputum, wheezing. Waited to come in because she thought this would resolve on its own. Has been following social distancing and denies any sick contacts Left Middle Chest Pain Score (Numeric/FACES): 8 - Related Data Allergies/Adverse Reactions: Allergies Allergy/AdvReac Type Severity Reaction Status Date / Time diphenhydramine Allergy Severe Other Verified 01/13/20 12:39 [From Benadryl] iodine Allergy Hives Verified 01/13/20 12:39 lisinopril AdvReac Cough Verified 01/13/20 12:39 regadenoson [From Lexiscan] AdvReac Tachycardia Verified 01/13/20 12:39 contrast dye Allergy Hives Uncoded 01/13/20 12:39 Home Medications: Home Meds Acetaminophen [Tylenol Extra Strength] 1,000 mg PO Q4HR PRN 10/05/15 [History] Aspirin [Halfprin] 81 mg PO DAILY 10/05/15 [History] Bumetanide [Bumex] 2 mg PO DAILY 10/05/15 [History] Calcium Carb,Gluc/Mag Ox,Gluc [Calcium Magnesium Caplet] 1 tab PO DAILY 10/05/15 [History] Calcium Carbonate/Vitamin D3 [Caltrate 600 Plus D3 Tablet] 1 tab PO DAILY 10/05/15 [History] Docusate Sodium [Colace] 100 mg PO BID 10/05/15 [History] Fish Oil/DHA/EPA [Fish Oil 1,200 MG] 1 tab PO DAILY 10/05/15 [History] Gabapentin [Neurontin] 400 mg PO DAILY 10/05/15 [History] Isosorbide Mononitrate [Imdur] 60 mg PO DAILY 10/05/15 [History] Losartan [Cozaar] 50 mg PO DAILY 10/05/15 [History] Nitroglycerin [Nitrostat] 0.4 mg SL Q5M 10/05/15 [History] Pentoxifylline [TRENtal] 400 mg PO TID 10/05/15 [History] Sertraline [Zoloft] 50 mg PO DAILY 10/05/15 [History] Vitamin B Complex [B Complex] 1 tab PO DAILY 10/05/15 [History] carvediloL [Coreg] 25 mg PO BID 10/05/15 [History] B2/Vits A,C,E/Lut/Zeaxanth/Min [Icaps] 1 tab PO DAILY 04/23/16 [History] Potassium Chloride 10 meq PO DAILY 04/23/16 [History] Similasan Eye Drop 1 drop EYEBOTH DAILY 04/23/16 [History] Simvastatin 1 tab PO DAILY 04/23/16 [History] Pantoprazole [Protonix] 40 mg PO BIDAC #60 tab.cr 04/24/16 [Rx] Past Medical History HEENT History: Reports: Cataract, Glaucoma, Impaired Vision Other HEENT History: wears glasses, has upper partial Cardiovascular History: Reports: CAD, Cardiomyopathy, Heart Failure, High Cholesterol, [place] (Seen 81 at which time she quit smoking.), PVD, SOB on Exertion Other Cardiovascular History: HX [place] 1980 with resultant cardiomyopathy - 2013 Echo with EF 30% Respiratory History: Reports: COPD (And on home oxygen therapy.), SOB Gastrointestinal History: Reports: GERD (On Protonix daily.) Other Gastrointestinal History: dysphagia, gastritis, hiatal hernia, polyp, nausea Other OB/BYN History: pelvic relaxation, hx breast Cancer, bilateral masectomy, ovarian cystectomy, hysterectomy, cystocele, rectocele Musculoskeletal History: Reports: Back Pain, Chronic, Osteoarthritis, Osteoporosis Other Musculoskeletal History: degernative joint disease Other Neuro History: vertigo Psychiatric History: Reports: Depression Endocrine/Metabolic History: Reports: Osteoporosis, Vitamin D Deficiency Hematologic History: Reports: Anemia, Blood Transfusion(s) Immunologic History: Reports: None Oncologic (Cancer) History: Reports: Breast (Left breast cancer in the 1980s treated with lumpectomy and lymph node dissection. Did not require chemotherapy or radiation.) - Infectious Disease History Infectious Disease History: Reports: None - Past Surgical History HEENT Surgical History: Reports: Cataract Surgery Cardiovascular Surgical History: Reports: Other (See Below) Other Cardiovascular Surgeries/Procedures: Angiogram December 2019--negative for any significant coronary disease blockage. GI Surgical History: Reports: Colonoscopy, EGD Other GI Surgeries/Procedures: hemorrhoidectomy, rectocele repair Female Surgical History: Reports: Breast Reconstruction (On the right side. Breast was removed prophylactically due to left-sided breast cancer where she had a lumpectomy and lymph node dissection. She never required any chemotherapy or radiation.), Hysterectomy, Mastectomy, Salpingo-Oophorectomy (Bilateral.), Other (See Below) Oncologic Surgical History: Reports: Mastectomy Social & Family History - Tobacco Use Smoking Status *Q: Never Smoker - Caffeine Use Caffeine Use: Reports: Soda - Recreational Drug Use Recreational Drug Use: No - Living Situation & Occupation Living situation: Reports: Occupation: Retired H&P Review of Systems - Review of Systems: Review Of Systems: See Below General: Reports: Chills, Malaise, Weakness, Fatigue. Denies: Fever, Night Sweats, Diaphoresis, Decreased Appetite, Weight Loss, Weight Gain HEENT: Denies: Headaches, Rhinitis, Post Nasal Drip, Sinus Congestion, Sore Throat, Vertigo, Visual Changes Pulmonary: Reports: Shortness of Breath, Wheezing, Pleuritic Chest Pain. Denies: Cough, Sputum, Hemoptysis Cardiovascular: Reports: Chest Pain, Dyspnea on Exertion, Lightheadedness, Blood Pressure Problem. Denies: Palpitations, Orthopnea, PND, Edema, Syncope, Claudication Gastrointestinal: Reports: Abdominal Pain, Constipation, Distension. Denies: Anorexia, Black Stool, Bloody Stool, Diarrhea, Decreased Appetite, Difficulty Swallowing, Flatus, Hematemesis, Hematochezia, Melena, Mucous in Stool, Nausea, Stool Incontinence, Vomiting Genitourinary: Denies: Dysuria, Frequency, Burning, Pain, Urgency, Incontinence, Hematuria, Retention Musculoskeletal: Denies: Joint Pain, Joint Swelling, Muscle Pain, Muscle Stiffness Skin: Denies: Cyanosis, Jaundice, Mottled, Pallor, Diaphoresis Psychiatric: Denies: Confusion, Depression, Mood Lability, Anxiety, Agitation Neurological: Denies: Dizziness, Headache, Numbness, Paresthesia Exam - Exam Exam: See Below - Vital Signs Vital Signs: Last Vital Signs Temp 99 F 01/13/20 12:39 Pulse 78 01/13/20 12:39 Resp 20 01/13/20 12:39 BP 114/55 L 01/13/20 12:39 Pulse Ox 97 01/13/20 12:39 Weight: 66.678 kg - Exam General: Alert, Oriented, Cooperative, Mild Distress HEENT: Conjunctiva Clear, EACs Clear, Mucosa Moist & [place], Pupils Equal, Pupils Reactive Neck: Supple, Trachea Midline, Full Range of Motion. No: +2 Carotid Pulse wo Bruit, Lymphadenopathy Lungs: Decreased Breath Sounds. No: Normal Respiratory Effort, Crackles, Rales, Rhonchi, Rub, Stridor, Wheezing Cardiovascular: Regular Rate, Regular Rhythm. No: Systolic Murmur, Diastolic Murmur, Rubs, Gallop/S3, Gallop/S4 GI/Abdominal Exam: Normal Bowel Sounds, Soft, Non-Tender, Distended. No: Guarding, Rigid, Rebound Extremities: Normal Inspection, No Pedal Edema, Normal Capillary Refill Peripheral Pulses: 2+: Radial (L), Radial (R) Skin: Warm, Dry, Intact Neuro Extensive - Mental Status: Alert, Oriented x3 Psychiatric: Normal Affect, Normal Mood - Patient Data Result Diagrams: 01/13/20 13:39 01/13/20 13:49 Sepsis Event Note - Evaluation Sepsis Screening Result: No Definite Risk - Focused Exam Vital Signs: Vital Signs Temp Pulse Resp BP Pulse Ox 01/13/20 12:39 99 F 78 20 114/55 L 97 Date Exam was Performed: 01/13/20 Time Exam was Performed: 18:30 - Problem List (1) Pneumonia SNOMED Code(s): 454140973 ICD Code: J18.9 - PNEUMONIA, UNSPECIFIED ORGANISM Status: Acute Current Visit: Yes (2) Leukocytosis SNOMED Code(s): 187078717, 946368592 ICD Code: D72.829 - ELEVATED WHITE BLOOD CELL COUNT, UNSPECIFIED Status: Acute Current Visit: Yes (3) Acute kidney injury SNOMED Code(s): 54544763, 27612624 ICD Code: N17.9 - ACUTE KIDNEY FAILURE, UNSPECIFIED Status: Acute Current Visit: Yes (4) Chronic kidney disease SNOMED Code(s): 598391180 ICD Code: N18.9 - CHRONIC KIDNEY DISEASE, UNSPECIFIED Status: Acute Current Visit: Yes (5) Hypertension SNOMED Code(s): 06744734 ICD Code: I10 - ESSENTIAL (PRIMARY) HYPERTENSION Status: Acute Current Visit: Yes (6) Coronary artery disease SNOMED Code(s): 40525227 ICD Code: I25.10 - ATHSCL HEART DISEASE OF [place] CORONARY ARTERY W/O ANG PCTRS Status: Acute Current Visit: Yes (7) S/P implantation of automatic cardioverter/defibrillator (AICD) SNOMED Code(s): 141345843, 650184203 ICD Code: Z95.810 - PRESENCE OF AUTOMATIC (IMPLANTABLE) CARDIAC DEFIBRILLATOR Status: Acute Current Visit: Yes (8) Heart failure SNOMED Code(s): 93395019 ICD Code: I50.9 - HEART FAILURE, UNSPECIFIED Status: Acute Current Visit: Yes (9) Dyslipidemia SNOMED Code(s): 056469486 ICD Code: E78.5 - HYPERLIPIDEMIA, UNSPECIFIED Status: Acute Current Visit: Yes (10) Glaucoma SNOMED Code(s): 40721278 ICD Code: H40.9 - UNSPECIFIED GLAUCOMA Status: Acute Current Visit: Yes (11) Macular degeneration SNOMED Code(s): 805536544 ICD Code: H35.30 - UNSPECIFIED MACULAR DEGENERATION Status: Acute Current Visit: Yes (12) History of myocardial infarction SNOMED Code(s): 940066621 ICD Code: I25.2 - OLD MYOCARDIAL INFARCTION Status: Acute Current Visit: Yes Problem List Initiated/Reviewed/Updated: Yes Assessment/Plan Comment:: ASSESSMENT This is a 79 year old female with past medical history of hypertension, heart failure s/p AICD placement who comes to the ED complaining of severe pain on her left chest, abdomen, back and shoulder for 5 days. Patient does not recall what she was doing when it started, she does describe it as " sharp and pulling", grades it 20/10, non radiating, it all just hurts at the same time. It is improved by staying still and worsens with taking a deep breath, lasts about 30 minutes when it happens. She did not try any kind of medications at home. She associates it with shortness of breath, [place], PND, malaise, fatigue, chills, weakness, abdominal bloating and lightheadedness Denies any fever, palpitations, near syncope, cough, runny nose, nasal congestion, neck discomfort, previous episodes, coughing, sputum, wheezing. Waited to come in because she thought this would resolve on its own. Has been following social distancing and denies any sick contacts Infiltrate seen on CT abdomen, on left lung base + Leukocytosis--> started coverage for CAP Lactic acid is normal, sepsis is ruled out Patient with history of heart failure s/p AICD placement VS on admission 114/54; 78x'; Temp 99; O2Sat 97% on RA PLAN Pneumonia - Start Azithromycin and Ceftriaxone today to complete 5 days - Procalcitonin today and every 48 hours - 2 view CXR in AM - Respiratory therapy eval and treat - Scheduled incentive spirometry - PRN DuoNebs - Trend temperature and panculture if febrile Acute vs acute on chronic kidney disease - Urine sodium and creatinine to calculate FeNa - Monitor urine output - Renally dosed medications Hypertension - Continue home meds once available - PRN Hydralazine Coronary artery disease s/p myocardial infarction Heart failure S/P implantation of automatic cardioverter/defibrillator (AICD) Dyslipidemia - Monitor for chest pain - Continue home meds once available - Interrogate AICD - Obtain records Glaucoma Macular degeneration - Continue home medications PROPHYLAXIS DVT- compression stockings GI- not indicated CODE STATUS: FULL CODE DISPOSITION: Patient will be admitted for IV antibiotics and respiratory therapy, monitorization of oxygenation. SOCIAL: Lives in [place] with and son in a house Prior to this was completely independent on ADLs and IADLs Never drinker, smoker or illicit drug user is MPOA Subjective Update: Admission Diagnosis/Problem Pneumonia 01/13/2020 79 year old female admitted to the floor from the ER where she presented with complaints of shortness of breath and diffused left-sided chest pain that started along the diaphragm and would radiate up towards the left shoulder for the last 3 weeks and was progressively getting worse Start Azithromycin and Ceftriaxone today to complete 5 days Procalcitonin today and every 48 hours 2 view CXR in AM Respiratory therapy eval and treat Scheduled incentive spirometry PRN DuoNebs Trend temperature and panculture if febrile 01/14/2020 Pain improved but not resolved BP trend 90-108/52-54 Tmax 98.6 HR 80-85 Sat >89% on 1L NC GFR improved from 29-53 WBC count now normal Mg 1.4 Anemia workup: normal retic, folate, B12; low iron and vitamin D CXR with obvious infiltrate in retrocardiac space on L lung Day 2 of antibiotics Hb lower , likely due to hemodilution, no signs of blood loss Still in pain but better Had a hard time sleeping due to the pain Shortness of breath is improving Tolerating diet Ambulating BM 01/11 O2 sat dropped to 89% overnight for which she was placed on 1L NC Continue Azithromycin and Ceftriaxone day 2 to complete 5 days Procalcitonin follow up Respiratory therapy f/u Scheduled incentive spirometry PRN DuoNebs Taper down O2 as tolerated Trend temperature and panculture if febrile F/U on serology Monitor urine output Renally dosed medications Replace MgSO4 with 2g IV F/U on anemia work-up Monitor for chest pain DVT- compression stockings 01/15/2020 Vital signs are stable She is wearing O2 at 1L Wearing glasses x1 assist with FWW States that she is doing well She is up in bed, watching TV, and eating States that she has a good appetite States that she is still having shortness of breath and that it still feels hard to breathe Discussed getting up and walking today to keep up her strength Discussed cutting down her IV to 50 Discussed giving potassium 20 MG x4 times today due to low levels in her labs Discussed giving her IV iron today and then starting half a tablet of iron daily due to low levels in her labs Discussed rechecking labs Discussed her chronic constipation and giving her a suppository to help her have a bowel movement 01/16/20 afebrile doing better but still whezy . hypoxia now on 1 liter and ambulated yest . pleurisy better on motirn . angiogram no p.e and lll atelectasis and gg appearance suggests pneumonia improving . neuro alert and oriented. carotids decreased no bruits . lungs crackles lll but decreased from yest. cor rrr with occ pvc sinus abd /back wnl. lab k 2.9 mg pending. chf with left pleural effusion improved with diuretics . pleurisy related to left pneumonia and effusion and no evidence of p.e/ ami or pericarditis but heart enlarged and echo ordered . plan home in am if cont to wean and improve. add spironolactone 50 mg day sec to hypokalemia and chf Subjective Update: 01/15/2020 Vital signs are stable She is wearing O2 at 1L Wearing glasses x1 assist with FWW States that she is doing well She is up in bed, watching TV, and eating States that she has a good appetite States that she is still having shortness of breath and that it still feels hard to breathe Discussed getting up and walking today to keep up her strength Discussed cutting down her IV to 50 Discussed giving potassium 20 MG x4 times today due to low levels in her labs Discussed giving her IV iron today and then starting half a tablet of iron daily due to low levels in her labs Discussed rechecking labs Discussed her chronic constipation and giving her a suppository to help her have a bowel movement Functional Status: Reports: Pain Controlled - Review of Systems General: Reports: No Symptoms HEENT: Reports: Glasses Pulmonary: Reports: Shortness of Breath Cardiovascular: Reports: Dyspnea on Exertion Gastrointestinal: Reports: Constipation Genitourinary: Reports: No Symptoms Musculoskeletal: Reports: No Symptoms Skin: Reports: No Symptoms Neurological: Reports: No Symptoms Psychiatric: Reports: No Symptoms - Patient Data Vitals - Most Recent: Last Vital Signs Temp 97.9 F 01/15/20 07:10 Pulse 72 01/15/20 08:08 Resp 24 H 01/15/20 07:10 BP 113/71 01/15/20 08:09 Pulse Ox 94 L 01/15/20 07:10 Weight - Most Recent: 71.668 kg I&O - Last 24 Hours: - Review of Systems General: Reports: No Symptoms HEENT: Reports: No Symptoms Pulmonary: Reports: No Symptoms, Shortness of Breath Cardiovascular: Reports: No Symptoms Gastrointestinal: Reports: No Symptoms Genitourinary: Reports: No Symptoms Musculoskeletal: Reports: No Symptoms Skin: Reports: No Symptoms Neurological: Reports: No Symptoms Psychiatric: Reports: No Symptoms - Patient Data Vitals - Most Recent: Last Vital Signs Temp 37.1 C 01/17/20 11:36 Pulse 76 01/17/20 11:36 Resp 16 01/17/20 11:36 BP 101/52 L 01/17/20 11:36 Pulse Ox 90 L 01/17/20 11:36 Weight - Most Recent: 69.354 kg I&O - Last 24 hours: Intake & Output 01/16/20 01/17/20 01/17/20 22:59 06:59 14:59 Intake Total 1470 450 360 Output Total 1300 600 Balance 170 -150 360 Lab Results - Last 24 hrs: Laboratory Results - last 24 hr 01/17/20 01/17/20 Range/Units 09:28 09:28 WBC 8.01 (3.98-10.04) K/mm3 RBC 3.30 L (3.98-5.22) M/mm3 Hgb 9.4 L (11.2-15.7) gm/dl Hct 30.6 L (34.1-44.9) % MCV 92.7 (79.4-94.8) fl MCH 28.5 (25.6-32.2) pg MCHC 30.7 L (32.2-35.5) g/dl RDW Std Deviation 46.1 (36.4-46.3) fL Plt Count 270 (182-369) K/mm3 MPV 9.2 L (9.4-12.3) fl Neut % (Auto) 77.2 H (34.0-71.1) % Lymph % (Auto) 13.5 L (19.3-51.7) % Dawes % (Auto) 7.5 (4.7-12.5) % Eos % (Auto) 1.0 (0.7-5.8) Baso % (Auto) 0.4 (0.1-1.2) % Neut # (Auto) 6.19 H (1.56-6.13) K/mm3 Lymph # (Auto) 1.08 L (1.18-3.74) K/mm3 Dawes # (Auto) 0.60 H (0.24-0.36) K/mm3 Eos # (Auto) 0.08 (0.04-0.36) K/mm3 Baso # (Auto) 0.03 (0.01-0.08) K/mm3 Sodium 145 (136-145) mEq/L Potassium 2.8 L (3.5-5.1) mEq/L Chloride 109 H (98-107) mEq/L Carbon Dioxide 25 (21-32) mEq/L Anion Gap 13.8 (5-15) BUN 11 (7-18) mg/dL Creatinine 1.0 (0.55-1.02) mg/dL Est Cr Clr Drug Dosing 36.08 mL/min Estimated GFR (MDRD) 53 (>60) mL/min BUN/Creatinine Ratio 11.0 L (14-18) Glucose 169 H (83-115) mg/dL Calcium 6.3 L (8.5-10.1) mg/dL Magnesium 1.9 (1.8-2.4) mg/dl Total Bilirubin 0.6 (0.2-1.0) mg/dL AST 18 (15-37) U/L ALT 16 (14-59) U/L Alkaline Phosphatase 57 (46-116) U/L Total Protein 6.3 L (6.4-8.2) g/dl Albumin 2.7 L (3.4-5.0) g/dl Globulin 3.6 gm/dL Albumin/Globulin Ratio 0.8 L (1-2) NORAH Results - Last 24 hrs: Microbiology 01/13/20 13:49 Aerobic Blood Culture - Preliminary Blood - Venous - Lab Draw NO GROWTH AFTER 3 DAYS Anaerobic Blood Culture - Preliminary NO GROWTH AFTER 3 DAYS 01/13/20 13:39 Aerobic Blood Culture - Preliminary Blood - Venous NO GROWTH AFTER 3 DAYS Anaerobic Blood Culture - Preliminary NO GROWTH AFTER 3 DAYS Med Orders - Current: Current Medications Acetaminophen (Tylenol) 650 mg PO Q4H PRN PRN Reason: Pain (mild 1-3) Hydrocodone Bitart/Acetaminophen ([place] 325-5 Mg) 1 tab PO Q4H PRN PRN Reason: Pain (moderate 4-6) Last Admin: 01/15/20 08:11 Dose: 1 tab Documented by: Albuterol/Ipratropium (Duoneb 3.0-0.5 Mg/3 Ml) 3 ml NEB Q4HRRT PRN PRN Reason: Wheezing Last Admin: 01/16/20 12:59 Dose: 3 ml Documented by: Amlodipine Besylate (Norvasc) 2.5 mg PO DAILY [facility] Last Admin: 01/17/20 08:42 Dose: 2.5 mg Documented by: Aspirin (Halfprin) 81 mg PO BEDTIME [facility] Last Admin: 01/16/20 20:33 Dose: 81 mg Documented by: Benzonatate (Tessalon Perles) 100 mg PO TID PRN PRN Reason: Cough Bumetanide (Bumex) 2 mg PO DAILY [facility] Last Admin: 01/17/20 08:41 Dose: 2 mg Documented by: Bumetanide (Bumex) 1 mg PO 1300 [facility] Last Admin: 01/17/20 12:38 Dose: 1 mg Documented by: Carvedilol (Coreg) 25 mg PO BID [facility] Last Admin: 01/17/20 08:43 Dose: 25 mg Documented by: Docusate Sodium (Colace) 100 mg PO BID [facility] Last Admin: 01/17/20 08:43 Dose: 100 mg Documented by: Ferrous Sulfate (Ferrous Sulfate) 162 mg PO DAILY [facility] Last Admin: 01/17/20 08:43 Dose: 162 mg Documented by: Gabapentin (Neurontin) 400 mg PO BEDTIME [facility] Last Admin: 01/16/20 20:34 Dose: 400 mg Documented by: Guaifenesin (Mucinex) 600 mg PO BID PRN PRN Reason: Cough Hydralazine HCl (Apresoline) 10 mg IVPUSH Q2H PRN PRN Reason: Hypertension Azithromycin 500 mg/ Sodium (Chloride) 250 mls @ 250 mls/hr IV Q24H [facility] Stop: 01/17/20 17:59 Last Admin: 01/16/20 17:00 Dose: 250 mls/hr Documented by: Ceftriaxone Sodium 2 gm/ (Sodium Chloride) 100 mls @ 200 mls/hr IV Q24H [facility] Stop: 01/17/20 18:29 Last Admin: 01/16/20 18:32 Dose: 200 mls/hr Documented by: Potassium Chloride 10 meq/ (Premix) 100 mls @ 100 mls/hr IV Q1H [facility] Stop: 01/17/20 14:59 Last Admin: 01/17/20 12:36 Dose: 100 mls/hr Documented by: Lactated Ringer's (Ringers, Lactated) 1,000 mls @ 50 mls/hr IV ASDIRECTED [facility] Last Admin: 01/17/20 11:22 Dose: 50 mls/hr Documented by: Isosorbide Mononitrate (Imdur) 60 mg PO DAILY [facility] Last Admin: 01/17/20 08:44 Dose: 60 mg Documented by: Losartan Potassium (Cozaar) 25 mg PO DAILY [facility] Last Admin: 01/17/20 08:42 Dose: 25 mg Documented by: Losartan Potassium (Cozaar) 50 mg PO DAILY [facility] Last Admin: 01/17/20 11:23 Dose: 50 mg Documented by: Ondansetron HCl (Zofran Odt) 4 mg PO Q6H PRN PRN Reason: nausea, able to take PO Last Admin: 01/16/20 17:16 Dose: 4 mg Documented by: Ondansetron HCl (Zofran) 4 mg IV Q6H PRN PRN Reason: Nausea/Vomiting Similasan Eye Drop 1 (Drop) 0 each EYEBOTH DAILY [facility] Last Admin: 01/17/20 08:47 Dose: Not Given Documented by: Potassium Chloride (Klor-Con M20) 20 meq PO BID [facility] Last Admin: 01/17/20 08:42 Dose: 20 meq Documented by: Rosuvastatin Calcium (Crestor) 20 mg PO DAILY [facility] Last Admin: 01/17/20 08:42 Dose: 20 mg Documented by: Senna (Senna) 8.6 mg PO BID [facility] Last Admin: 01/17/20 08:43 Dose: 8.6 mg Documented by: Sertraline HCl (Zoloft) 50 mg PO BEDTIME [facility] Last Admin: 01/16/20 20:33 Dose: 50 mg Documented by: Discontinued Medications Aspirin (Halfprin) 81 mg PO DAILY [facility] Bisacodyl (Dulcolax) 10 mg RECTAL ONETIME ONE Stop: 01/15/20 09:57 Last Admin: 01/15/20 11:20 Dose: 10 mg Documented by: Diphenhydramine HCl (Benadryl) 50 mg PO ONETIME ONE Stop: 01/15/20 13:01 Last Admin: 01/15/20 13:25 Dose: 50 mg Documented by: Furosemide (Lasix) 20 mg IVPUSH ONETIME STA Stop: 01/15/20 16:23 Last Admin: 01/15/20 16:26 Dose: 20 mg Documented by: Furosemide (Lasix) 20 mg IVPUSH ONETIME ONE Stop: 01/16/20 10:46 Last Admin: 01/16/20 11:32 Dose: 20 mg Documented by: Gabapentin (Neurontin) 400 mg PO DAILY [facility] Hydrocortisone Sodium Succinate (Solu-Cortef) 100 mg IVPUSH ONETIME ONE Stop: 01/15/20 13:01 Last Admin: 01/15/20 13:25 Dose: 100 mg Documented by: Hydromorphone HCl (Dilaudid) 0.25 mg IVPUSH ONETIME ONE Stop: 01/13/20 13:15 Last Admin: 01/13/20 13:56 Dose: 0.25 mg Documented by: Dextrose/Sodium Chloride (Dextrose 5%-Normal Saline) 1,000 mls @ 100 mls/hr IV ASDIRECTED [facility] Last Admin: 01/15/20 04:59 Dose: 100 mls/hr Documented by: Ceftriaxone Sodium 2 gm/ (Sodium Chloride) 100 mls @ 200 mls/hr IV Q24H [facility] Last Admin: 01/13/20 16:34 Dose: 200 mls/hr Documented by: Azithromycin 500 mg/ Sodium (Chloride) 250 mls @ 250 mls/hr IV ONETIME ONE Stop: 01/13/20 18:30 Last Admin: 01/13/20 17:54 Dose: 250 mls/hr Documented by: Magnesium Sulfate 2 gm/ Premix 50 mls @ 25 mls/hr IV ONETIME ONE Stop: 01/14/20 11:59 Last Admin: 01/14/20 10:30 Dose: 25 mls/hr Documented by: Dextrose/Sodium Chloride (Dextrose 5%-Normal Saline) 1,000 mls @ 50 mls/hr IV ASDIRECTED [facility] Ferric Sodium Gluconate Complex 250 mg/ Sodium Chloride 120 mls @ 60 mls/hr IV ONETIME ONE Stop: 01/15/20 12:59 Last Admin: 01/15/20 11:20 Dose: 60 mls/hr Documented by: Sodium Chloride (Normal Saline) 100 mls @ 75 mls/hr IV ASDIRECTED [facility] Stop: 01/15/20 16:00 Last Admin: 01/15/20 14:06 Dose: 75 mls/hr Documented by: Potassium Chloride 10 meq/ (Premix) 100 mls @ 100 mls/hr IV Q1H [facility] Stop: 01/16/20 14:59 Last Admin: 01/16/20 15:31 Dose: 100 mls/hr Documented by: Magnesium Sulfate 4 gm/ Premix 50 mls @ 12.5 mls/hr IV ONETIME ONE Stop: 01/16/20 21:59 Last Infusion: 01/16/20 18:34 Dose: 0 mls/hr Documented by: Iopamidol (Isovue-370 (76%)) 100 ml IVPUSH ONETIME ONE Stop: 01/15/20 13:17 Last Admin: 01/15/20 14:05 Dose: 100 ml Documented by: Losartan Potassium (Cozaar) 50 mg PO DAILY [facility] Morphine Sulfate (Morphine) 2 mg IVPUSH Q4H PRN PRN Reason: Pain (severe 7-10) Stop: 01/14/20 17:44 Last Admin: 01/14/20 05:36 Dose: 2 mg Documented by: Ondansetron HCl (Zofran) 4 mg IVPUSH ONETIME ONE Stop: 01/13/20 13:15 Last Admin: 01/13/20 13:54 Dose: 4 mg Documented by: Pentoxifylline 400 (Mg) 0 each PO TID [facility] Last Admin: 01/14/20 21:15 Dose: Not Given Documented by: Rivaroxaban (Xarelto) 15 mg PO BID [facility] Last Admin: 01/16/20 08:59 Dose: Not Given Documented by: Sertraline HCl (Zoloft) 50 mg PO DAILY [facility] Sodium Chloride (Saline Flush) 10 ml FLUSH ONETIME PRN PRN Reason: IV FLUSH Stop: 01/15/20 16:00 Last Admin: 01/15/20 14:06 Dose: 10 ml Documented by: Spironolactone (Aldactone) 50 mg PO ONETIME ONE Stop: 01/17/20 10:55 Last Admin: 01/17/20 11:23 Dose: 50 mg Documented by: - Exam General: Reports: Alert, Oriented HEENT: Reports: Pupils Equal, Pupils Reactive, EOMI, Mucous Membr. Moist/[place] Neck: Reports: Supple Lungs: Reports: Clear to Auscultation, Normal Respiratory Effort, Decreased Breath Sounds Cardiovascular: Reports: Regular Rate, Regular Rhythm GI/Abdominal Exam: Normal Bowel Sounds, Soft, Non-Tender, No Organomegaly, No Distention, No Abnormal Bruit, No Mass, Pelvis Stable (Female) Exam: Deferred. No: Normal External Exam, Normal Speculum Exam, Normal Bimanual Exam Rectal (Female) Exam: Deferred. No: Normal Exam (o2 weaned and sats around 90%/ ra. spironolactone added for chf control), Normal Rectal Tone Back Exam: Reports: Normal Inspection, Full Range of Motion Extremities: Normal Inspection, Normal Range of Motion, Non-Tender, No Pedal Edema, Normal Capillary Refill Skin: Reports: Warm, Dry, Intact Wound/Incisions: Reports: Healing Well Neurological: Reports: No New Focal Deficit Psy/Mental Status: Reports: Alert, Normal Affect, Normal Mood
[2020-01-17] MEDS: Albuterol/Ipratropium 3.0-0.5 MG/3 ML Neb Soln NEB PRN (13:52)
[2020-01-17] MEDS ORDERED: Furosemide 20 MG/2 ML VIAL IVPUSH ONE (14:13)
--- NOTE | 2020-01-17 14:31 | PCM.SN.2 ---
- Free Text/Narrative Note: 01/17/20 patient more dyspniec with sats around 90s / prefers to stay and will cont nebs and o2 with additional dose lasix given. k correction continues and repeat trop and ntbnp /panel 8 boh
[2020-01-17] MEDS: Azithromycin 500 MG in Sodium Chloride 0.9% 250 ML IV SCH (16:24)
[2020-01-17] MEDS: cefTRIAXone 2 GM in Sodium Chloride 0.9% 100 ML IV SCH (18:06)
[2020-01-17] MEDS ORDERED: Nitroglycerin 0.4 MG Tab.SL SL PRN (20:55)
[2020-01-17] MEDS: Sertraline 50 MG Tab PO SCH (21:45)
[2020-01-17] MEDS: Gabapentin 100 MG Cap PO SCH (21:47)
[2020-01-17] MEDS: Aspirin 81 MG Tab.EC PO SCH (21:47)
[2020-01-18] MEDS: Bumetanide 1 MG Tab PO SCH ×2 (08:00→14:28)
[2020-01-18] MEDS: Losartan 25 MG Tab PO SCH ×2 (08:00→08:03)
[2020-01-18] MEDS: Rosuvastatin 10 MG Tab PO SCH (08:00)
[2020-01-18] MEDS: amLODIPine 2.5 MG Tab PO SCH (08:01)
[2020-01-18] MEDS: Docusate Sodium 100 MG Cap PO SCH (08:01)
[2020-01-18] MEDS: Sennosides 8.6 MG Tab PO SCH (08:02)
[2020-01-18] MEDS: Isosorbide Mononitrate 60 MG Tab.ER PO SCH (08:02)
[2020-01-18] MEDS: Potassium Chloride 20 MEQ Tab.ER PO SCH (08:02)
[2020-01-18] MEDS: Carvedilol 12.5 MG Tab PO SCH (08:02)
[2020-01-18] MEDS: Ferrous Sulfate 324 MG Tab.EC PO SCH (08:02)
[2020-01-18] MEDS: SIMILASAN EYE EYEBOTH SCH (08:03)
--- NOTE | 2020-01-18 09:46 | PCM.PNNB ---
- General Info Date of Service: 01/16/20 - Patient Data Vital Signs: Last Vital Signs Temp 36.7 C 01/18/20 07:38 Pulse 77 01/18/20 08:02 Resp 20 01/18/20 07:38 BP 120/58 L 01/18/20 08:03 Pulse Ox 96 01/18/20 08:27 Weight: 68.447 kg I&O Last 24 Hours: Intake & Output 01/17/20 01/18/20 01/18/20 22:59 06:59 14:59 Intake Total 1800 400 Output Total 1800 1200 Balance 0 -800 Labs Last 24 Hours: Laboratory Results - last 24 hr 01/17/20 01/17/20 01/17/20 Range/Units 09:28 09:28 14:11 WBC 8.01 (3.98-10.04) K/mm3 RBC 3.30 L (3.98-5.22) M/mm3 Hgb 9.4 L (11.2-15.7) gm/dl Hct 30.6 L (34.1-44.9) % MCV 92.7 (79.4-94.8) fl MCH 28.5 (25.6-32.2) pg MCHC 30.7 L (32.2-35.5) g/dl RDW Std Deviation 46.1 (36.4-46.3) fL Plt Count 270 (182-369) K/mm3 MPV 9.2 L (9.4-12.3) fl Neut % (Auto) 77.2 H (34.0-71.1) % Lymph % (Auto) 13.5 L (19.3-51.7) % [place] % (Auto) 7.5 (4.7-12.5) % Eos % (Auto) 1.0 (0.7-5.8) Baso % (Auto) 0.4 (0.1-1.2) % Neut # (Auto) 6.19 H (1.56-6.13) K/mm3 Lymph # (Auto) 1.08 L (1.18-3.74) K/mm3 [place] # (Auto) 0.60 H (0.24-0.36) K/mm3 Eos # (Auto) 0.08 (0.04-0.36) K/mm3 Baso # (Auto) 0.03 (0.01-0.08) K/mm3 Sodium 145 143 (136-145) mEq/L Potassium 2.8 L 3.8 (3.5-5.1) mEq/L Chloride 109 H 108 H (98-107) mEq/L Carbon Dioxide 25 24 (21-32) mEq/L Anion Gap 13.8 14.8 (5-15) BUN 11 11 (7-18) mg/dL Creatinine 1.0 0.8 (0.55-1.02) mg/dL Est Cr Clr Drug Dosing 36.08 45.10 mL/min Estimated GFR (MDRD) 53 > 60 (>60) mL/min BUN/Creatinine Ratio 11.0 L 13.8 L (14-18) Glucose 169 H 102 (83-115) mg/dL Calcium 6.3 L 6.4 L (8.5-10.1) mg/dL Magnesium 1.9 (1.8-2.4) mg/dl Total Bilirubin 0.6 (0.2-1.0) mg/dL AST 18 (15-37) U/L ALT 16 (14-59) U/L Alkaline Phosphatase 57 (46-116) U/L Troponin I (0.00-0.056) ng/mL NT-Pro-B Natriuret Pep (0-450) pg/mL Total Protein 6.3 L (6.4-8.2) g/dl Albumin 2.7 L (3.4-5.0) g/dl Globulin 3.6 gm/dL Albumin/Globulin Ratio 0.8 L (1-2) 01/17/20 01/17/20 Range/Units 14:11 14:11 WBC (3.98-10.04) K/mm3 RBC (3.98-5.22) M/mm3 Hgb (11.2-15.7) gm/dl Hct (34.1-44.9) % MCV (79.4-94.8) fl MCH (25.6-32.2) pg MCHC (32.2-35.5) g/dl RDW Std Deviation (36.4-46.3) fL Plt Count (182-369) K/mm3 MPV (9.4-12.3) fl Neut % (Auto) (34.0-71.1) % Lymph % (Auto) (19.3-51.7) % [place] % (Auto) (4.7-12.5) % Eos % (Auto) (0.7-5.8) Baso % (Auto) (0.1-1.2) % Neut # (Auto) (1.56-6.13) K/mm3 Lymph # (Auto) (1.18-3.74) K/mm3 [place] # (Auto) (0.24-0.36) K/mm3 Eos # (Auto) (0.04-0.36) K/mm3 Baso # (Auto) (0.01-0.08) K/mm3 Sodium (136-145) mEq/L Potassium (3.5-5.1) mEq/L Chloride (98-107) mEq/L Carbon Dioxide (21-32) mEq/L Anion Gap (5-15) BUN (7-18) mg/dL Creatinine (0.55-1.02) mg/dL Est Cr Clr Drug Dosing mL/min Estimated GFR (MDRD) (>60) mL/min BUN/Creatinine Ratio (14-18) Glucose (83-115) mg/dL Calcium (8.5-10.1) mg/dL Magnesium (1.8-2.4) mg/dl Total Bilirubin (0.2-1.0) mg/dL AST (15-37) U/L ALT (14-59) U/L Alkaline Phosphatase (46-116) U/L Troponin I < 0.017 (0.00-0.056) ng/mL NT-Pro-B Natriuret Pep 3339 H (0-450) pg/mL Total Protein (6.4-8.2) g/dl Albumin (3.4-5.0) g/dl Globulin gm/dL Albumin/Globulin Ratio (1-2) Micro Last 24 Hours: Microbiology 01/13/20 13:49 Aerobic Blood Culture - Preliminary Blood - Venous - Lab Draw NO GROWTH AFTER 4 DAYS Anaerobic Blood Culture - Preliminary NO GROWTH AFTER 4 DAYS 01/13/20 13:39 Aerobic Blood Culture - Preliminary Blood - Venous NO GROWTH AFTER 4 DAYS Anaerobic Blood Culture - Preliminary NO GROWTH AFTER 4 DAYS Current Medications: Current Medications Acetaminophen (Tylenol) 650 mg PO Q4H PRN PRN Reason: Pain (mild 1-3) Hydrocodone Bitart/Acetaminophen ([place] 325-5 Mg) 1 tab PO Q4H PRN PRN Reason: Pain (moderate 4-6) Last Admin: 01/15/20 08:11 Dose: 1 tab Documented by: Albuterol/Ipratropium (Duoneb 3.0-0.5 Mg/3 Ml) 3 ml NEB Q4HRRT PRN PRN Reason: Wheezing Last Admin: 01/17/20 13:52 Dose: 3 ml Documented by: Amlodipine Besylate (Norvasc) 2.5 mg PO DAILY [facility] Last Admin: 01/18/20 08:01 Dose: 2.5 mg Documented by: Aspirin (Halfprin) 81 mg PO BEDTIME [facility] Last Admin: 01/17/20 21:47 Dose: 81 mg Documented by: Benzonatate (Tessalon Perles) 100 mg PO TID PRN PRN Reason: Cough Bumetanide (Bumex) 2 mg PO DAILY [facility] Last Admin: 01/18/20 08:00 Dose: 2 mg Documented by: Bumetanide (Bumex) 1 mg PO 1300 [facility] Last Admin: 01/17/20 12:38 Dose: 1 mg Documented by: Carvedilol (Coreg) 25 mg PO BID [facility] Last Admin: 01/18/20 08:02 Dose: 25 mg Documented by: Docusate Sodium (Colace) 100 mg PO BID [facility] Last Admin: 01/18/20 08:01 Dose: 100 mg Documented by: Ferrous Sulfate (Ferrous Sulfate) 162 mg PO DAILY [facility] Last Admin: 01/18/20 08:02 Dose: 162 mg Documented by: Gabapentin (Neurontin) 400 mg PO BEDTIME [facility] Last Admin: 01/17/20 21:47 Dose: 400 mg Documented by: Guaifenesin (Mucinex) 600 mg PO BID PRN PRN Reason: Cough Hydralazine HCl (Apresoline) 10 mg IVPUSH Q2H PRN PRN Reason: Hypertension Isosorbide Mononitrate (Imdur) 60 mg PO BID [facility] Last Admin: 01/18/20 08:02 Dose: 60 mg Documented by: Losartan Potassium (Cozaar) 25 mg PO DAILY [facility] Last Admin: 01/18/20 08:03 Dose: Not Given Documented by: Losartan Potassium (Cozaar) 50 mg PO DAILY [facility] Last Admin: 01/18/20 08:00 Dose: 50 mg Documented by: Nitroglycerin (Nitrostat) 0.4 mg SL Q5M PRN PRN Reason: Chest Pain Last Admin: 01/17/20 21:04 Dose: 0.4 mg Documented by: Ondansetron HCl (Zofran Odt) 4 mg PO Q6H PRN PRN Reason: nausea, able to take PO Last Admin: 01/16/20 17:16 Dose: 4 mg Documented by: Ondansetron HCl (Zofran) 4 mg IV Q6H PRN PRN Reason: Nausea/Vomiting Last Admin: 01/17/20 19:33 Dose: 4 mg Documented by: Similasan Eye Drop 1 (Drop Ptom) 0 each EYEBOTH DAILY [facility] Last Admin: 01/18/20 08:03 Dose: Not Given Documented by: Potassium Chloride (Klor-Con M20) 20 meq PO BID [facility] Last Admin: 01/18/20 08:02 Dose: 20 meq Documented by: Rosuvastatin Calcium (Crestor) 20 mg PO DAILY [facility] Last Admin: 01/18/20 08:00 Dose: 20 mg Documented by: Senna (Senna) 8.6 mg PO BID [facility] Last Admin: 01/18/20 08:02 Dose: 8.6 mg Documented by: Sertraline HCl (Zoloft) 50 mg PO BEDTIME [facility] Last Admin: 01/17/20 21:45 Dose: 50 mg Documented by: Discontinued Medications Aspirin (Halfprin) 81 mg PO DAILY [facility] Bisacodyl (Dulcolax) 10 mg RECTAL ONETIME ONE Stop: 01/15/20 09:57 Last Admin: 01/15/20 11:20 Dose: 10 mg Documented by: Diphenhydramine HCl (Benadryl) 50 mg PO ONETIME ONE Stop: 01/15/20 13:01 Last Admin: 01/15/20 13:25 Dose: 50 mg Documented by: Furosemide (Lasix) 20 mg IVPUSH ONETIME STA Stop: 01/15/20 16:23 Last Admin: 01/15/20 16:26 Dose: 20 mg Documented by: Furosemide (Lasix) 20 mg IVPUSH ONETIME ONE Stop: 01/16/20 10:46 Last Admin: 01/16/20 11:32 Dose: 20 mg Documented by: Furosemide (Lasix) 20 mg IVPUSH ONETIME ONE Stop: 01/17/20 14:14 Last Admin: 01/17/20 14:53 Dose: 20 mg Documented by: Gabapentin (Neurontin) 400 mg PO DAILY [facility] Hydrocortisone Sodium Succinate (Solu-Cortef) 100 mg IVPUSH ONETIME ONE Stop: 01/15/20 13:01 Last Admin: 01/15/20 13:25 Dose: 100 mg Documented by: Hydromorphone HCl (Dilaudid) 0.25 mg IVPUSH ONETIME ONE Stop: 01/13/20 13:15 Last Admin: 01/13/20 13:56 Dose: 0.25 mg Documented by: Dextrose/Sodium Chloride (Dextrose 5%-Normal Saline) 1,000 mls @ 100 mls/hr IV ASDIRECTED [facility] Last Admin: 01/15/20 04:59 Dose: 100 mls/hr Documented by: Ceftriaxone Sodium 2 gm/ (Sodium Chloride) 100 mls @ 200 mls/hr IV Q24H [facility] Last Admin: 01/13/20 16:34 Dose: 200 mls/hr Documented by: Azithromycin 500 mg/ Sodium (Chloride) 250 mls @ 250 mls/hr IV ONETIME ONE Stop: 01/13/20 18:30 Last Admin: 01/13/20 17:54 Dose: 250 mls/hr Documented by: Azithromycin 500 mg/ Sodium (Chloride) 250 mls @ 250 mls/hr IV Q24H [facility] Stop: 01/17/20 17:59 Last Admin: 01/17/20 16:24 Dose: 250 mls/hr Documented by: Ceftriaxone Sodium 2 gm/ (Sodium Chloride) 100 mls @ 200 mls/hr IV Q24H [facility] Stop: 01/17/20 18:29 Last Admin: 01/17/20 18:06 Dose: 200 mls/hr Documented by: Magnesium Sulfate 2 gm/ Premix 50 mls @ 25 mls/hr IV ONETIME ONE Stop: 01/14/20 11:59 Last Admin: 01/14/20 10:30 Dose: 25 mls/hr Documented by: Dextrose/Sodium Chloride (Dextrose 5%-Normal Saline) 1,000 mls @ 50 mls/hr IV ASDIRECTED [facility] Ferric Sodium Gluconate Complex 250 mg/ Sodium Chloride 120 mls @ 60 mls/hr IV ONETIME ONE Stop: 01/15/20 12:59 Last Admin: 01/15/20 11:20 Dose: 60 mls/hr Documented by: Sodium Chloride (Normal Saline) 100 mls @ 75 mls/hr IV ASDIRECTED [facility] Stop: 01/15/20 16:00 Last Admin: 01/15/20 14:06 Dose: 75 mls/hr Documented by: Potassium Chloride 10 meq/ (Premix) 100 mls @ 100 mls/hr IV Q1H [facility] Stop: 01/16/20 14:59 Last Admin: 01/16/20 15:31 Dose: 100 mls/hr Documented by: Magnesium Sulfate 4 gm/ Premix 50 mls @ 12.5 mls/hr IV ONETIME ONE Stop: 01/16/20 21:59 Last Infusion: 01/16/20 18:34 Dose: 0 mls/hr Documented by: Potassium Chloride 10 meq/ (Premix) 100 mls @ 100 mls/hr IV Q1H [facility] Stop: 01/17/20 14:59 Last Admin: 01/17/20 14:42 Dose: 100 mls/hr Documented by: Lactated Ringer's (Ringers, Lactated) 1,000 mls @ 50 mls/hr IV ASDIRECTED [facility] Last Admin: 01/17/20 11:22 Dose: 50 mls/hr Documented by: Iopamidol (Isovue-370 (76%)) 100 ml IVPUSH ONETIME ONE Stop: 01/15/20 13:17 Last Admin: 01/15/20 14:05 Dose: 100 ml Documented by: Isosorbide Mononitrate (Imdur) 60 mg PO DAILY [facility] Last Admin: 01/17/20 08:44 Dose: 60 mg Documented by: Losartan Potassium (Cozaar) 50 mg PO DAILY [facility] Morphine Sulfate (Morphine) 2 mg IVPUSH Q4H PRN PRN Reason: Pain (severe 7-10) Stop: 01/14/20 17:44 Last Admin: 01/14/20 05:36 Dose: 2 mg Documented by: Ondansetron HCl (Zofran) 4 mg IVPUSH ONETIME ONE Stop: 01/13/20 13:15 Last Admin: 01/13/20 13:54 Dose: 4 mg Documented by: Pentoxifylline 400 (Mg) 0 each PO TID [facility] Last Admin: 01/14/20 21:15 Dose: Not Given Documented by: Rivaroxaban (Xarelto) 15 mg PO BID [facility] Last Admin: 01/16/20 08:59 Dose: Not Given Documented by: Sertraline HCl (Zoloft) 50 mg PO DAILY [facility] Sodium Chloride (Saline Flush) 10 ml FLUSH ONETIME PRN PRN Reason: IV FLUSH Stop: 01/15/20 16:00 Last Admin: 01/15/20 14:06 Dose: 10 ml Documented by: Spironolactone (Aldactone) 50 mg PO ONETIME ONE Stop: 01/17/20 10:55 Last Admin: 01/17/20 11:23 Dose: 50 mg Documented by: - General/Neuro Activity: Active - Exam Respiratory: Breath Sounds Diminished, Expiratory Wheeze, Inspiratory Wheeze - Subjective Note: 01/16/20 afebrile/ eating well / iv 75 cc hour/restless night vss but increased wheezing and resp distress. left rib tenderness better but mild pain on deep inspiration lungs wheezy and decreased no crackles on left today . cor rrr without s3 but noted s4 skin mild edema ankles . abd benign . assess; 1 pneumonia ? left lower lobe. infiltrate on ct scan ground glass and not clearly pneumonia but on review atelectasis still present . incentive spirometry . 2) pleurasy no evidence of p.e. and fluid mild and pleurasy responded to ansaids 3)chf / fluid have resulted in worsening chf and will give lasix today. wean o.2 as tolerated and cont deep breathing and incentive spirometry . cont current antibiotics orally x 10 days and reassess. boh - Problem List & Annotations (1) Heart failure SNOMED Code(s): 99001583 Code(s): I50.9 - HEART FAILURE, UNSPECIFIED Status: Acute Priority: Medium Current Visit: Yes Onset Date: ~01/16/20 Qualifiers: Heart failure type: combined systolic and diastolic Heart failure chronicity: acute on chronic Qualified Code(s): I50.43 - Acute on chronic combined systolic (congestive) and diastolic (congestive) heart failure Annotation/Comment:: echo ordered as o.p . (2) Hypertension SNOMED Code(s): 37722107 Code(s): I10 - ESSENTIAL (PRIMARY) HYPERTENSION Status: Acute Priority: Medium Current Visit: Yes Onset Date: ~01/16/20 Qualifiers: Hypertension type: essential hypertension Qualified Code(s): I10 - Essential (primary) hypertension Annotation/Comment:: wheezing still present and hypoxia still requiring 2 liters/ cont lasix . very difficult to wean and continued findings on xray lll. start spironolactone (3) Pneumonia SNOMED Code(s): 287364562 Code(s): J18.9 - PNEUMONIA, UNSPECIFIED ORGANISM Status: Acute Priority: Medium Current Visit: Yes Onset Date: ~01/16/20 Qualifiers: Pneumonia type: due to unspecified organism Laterality: left Lung location: lower lobe of lung Qualified Code(s): J18.9 - Pneumonia, unspecified organism Annotation/Comment:: still having sign hypoxia and cont current antibiotic with negative angiogram yesterday ( other than infiltrate left lower lobe and atelectasis with effusion ) no evidence of any other process ongoing other than mild chf tendency / trop normal . ekg lbbb sinus rythm with nom spec t wave inversion suggesting lvh with lbbb findings. (4) History of myocardial infarction SNOMED Code(s): 106056520 Code(s): I25.2 - OLD MYOCARDIAL INFARCTION Status: Acute Priority: Low Current Visit: Yes Onset Date: ~01/16/20 Annotation/Comment:: no evidence of new mi by trop or ekg changes but lbbb old.chest pain with pleuritic quality no increase with position changes and better down to 2 . neg pulm angiogram for p.e . fever and leukocytosis better (5) Hypokalemia due to loss of potassium SNOMED Code(s): 84468531 Code(s): E87.6 - HYPOKALEMIA Status: Acute Priority: Medium Current Visit: Yes Onset Date: ~01/14/20 Annotation/Comment:: persistant hypokalemia despite replacment and increased losartinaa nd added spironolactone and recheck in 48 hours (6) Pneumonia SNOMED Code(s): 547731382 Code(s): J18.9 - PNEUMONIA, UNSPECIFIED ORGANISM Status: Acute Priority: Medium Current Visit: Yes Onset Date: ~01/14/20 Qualifiers: Pneumonia type: due to unspecified organism Laterality: left Lung location: lower lobe of lung Qualified Code(s): J18.9 - Pneumonia, unspecified organism Annotation/Comment:: weaned off o2 with sats borderline . chf improved and diuresing well but k low / start spironiolactone and increase losartin . (7) Atypical chest pain SNOMED Code(s): 361922673 Code(s): R07.89 - OTHER CHEST PAIN Status: Acute Priority: Low Current Visit: No Onset Date: ~01/14/20 Annotation/Comment:: pleurasy resolved. - Problem List Review Problem List Initiated/Reviewed/Updated: Yes - My Orders Last 24 Hours: My Active Orders 01/17/20 11:00 Losartan [Cozaar] 50 mg PO DAILY 01/17/20 20:55 Nitroglycerin [Nitrostat] 0.4 mg SL Q5M PRN 01/17/20 21:00 EKG 12 Lead [EK] Stat 01/17/20 21:30 Isosorbide Mononitrate [Imdur] 60 mg PO BID 01/18/20 08:00 Echo Comp wo Cont [US] Routine - Assessment Assessment:: 01/13/2020 79 year old female admitted to the floor from the ER where she presented with complaints of shortness of breath and diffused left-sided chest pain that started along the diaphragm and would radiate up towards the left shoulder for the last 3 weeks and was progressively getting worse Start Azithromycin and Ceftriaxone today to complete 5 days Procalcitonin today and every 48 hours 2 view CXR in AM Respiratory therapy eval and treat Scheduled incentive spirometry PRN DuoNebs Trend temperature and panculture if febrile 01/14/2020 Pain improved but not resolved BP trend 90-108/52-54 Tmax 98.6 HR 80-85 Sat >89% on 1L NC GFR improved from 29-53 WBC count now normal Mg 1.4 Anemia workup: normal retic, folate, B12; low iron and vitamin D CXR with obvious infiltrate in retrocardiac space on L lung Day 2 of antibiotics Hb lower , likely due to hemodilution, no signs of blood loss Still in pain but better Had a hard time sleeping due to the pain Shortness of breath is improving Tolerating diet Ambulating BM 01/11 O2 sat dropped to 89% overnight for which she was placed on 1L NC Continue Azithromycin and Ceftriaxone day 2 to complete 5 days Procalcitonin follow up Respiratory therapy f/u Scheduled incentive spirometry PRN DuoNebs Taper down O2 as tolerated Trend temperature and panculture if febrile F/U on serology Monitor urine output Renally dosed medications Replace MgSO4 with 2g IV F/U on anemia work-up Monitor for chest pain DVT- compression stockings 01/15/2020 Vital signs are stable She is wearing O2 at 1L Wearing glasses x1 assist with FWW States that she is doing well She is up in bed, watching TV, and eating States that she has a good appetite States that she is still having shortness of breath and that it still feels hard to breathe Discussed getting up and walking today to keep up her strength Discussed cutting down her IV to 50 Discussed giving potassium 20 MG x4 times today due to low levels in her labs Discussed giving her IV iron today and then starting half a tablet of iron daily due to low levels in her labs Discussed rechecking labs Discussed her chronic constipation and giving her a suppository to help her have a bowel movement - Plan Plan:: 01/15/2020 Vital signs are stable She is wearing O2 at 1L Wearing glasses x1 assist with FWW States that she is doing well She is up in bed, watching TV, and eating States that she has a good appetite States that she is still having shortness of breath and that it still feels hard to breathe Discussed getting up and walking today to keep up her strength Discussed cutting down her IV to 50 Discussed giving potassium 20 MG x4 times today due to low levels in her labs Discussed giving her IV iron today and then starting half a tablet of iron daily due to low levels in her labs Discussed rechecking labs Discussed her chronic constipation and giving her a suppository to help her have a bowel movement 01/16/20 afebrile doing better but still wheezy . hypoxia now on 1 liter and ambulated yest . pleurisy better on motirn . angiogram no p.e and lll atelectasis and gg appearance suggests pneumonia improving . neuro alert and oriented. carotids decreased no bruits . lungs crackles lll but decreased from yest. cor rrr with occ pvc sinus abd /back wnl. lab k 2.9 mg pending. chf with left pleural effusion improved with diuretics . pleurisy related to left pneumonia and effusion and no evidence of p.e/ ami or pericarditis but heart enlarged and echo ordered . plan home in am if cont to wean and improve. add spironolactone 50 mg day sec to hypokalemia and chf
--- NOTE | 2020-01-18 12:03 | PCM.DCSUM1 ---
Discharge Summary - Hospital Course Free Text/Narrative:: pneumonia /pleurisy/chf HPI Initial Comments: Admission Diagnosis/Problem Pneumonia 01/13/2020 79 year old female admitted to the floor from the ER where she presented with complaints of shortness of breath and diffused left-sided chest pain that started along the diaphragm and would radiate up towards the left shoulder for the last 3 weeks and was progressively getting worse Start Azithromycin and Ceftriaxone today to complete 5 days Procalcitonin today and every 48 hours 2 view CXR in AM Respiratory therapy eval and treat Scheduled incentive spirometry PRN DuoNebs Trend temperature and panculture if febrile 01/14/2020 Pain improved but not resolved BP trend 90-108/52-54 Tmax 98.6 HR 80-85 Sat >89% on 1L NC GFR improved from 29-53 WBC count now normal Mg 1.4 Anemia workup: normal retic, folate, B12; low iron and vitamin D CXR with obvious infiltrate in retrocardiac space on L lung Day 2 of antibiotics Hb lower , likely due to hemodilution, no signs of blood loss Still in pain but better Had a hard time sleeping due to the pain Shortness of breath is improving Tolerating diet Ambulating BM 01/11 O2 sat dropped to 89% overnight for which she was placed on 1L NC Continue Azithromycin and Ceftriaxone day 2 to complete 5 days Procalcitonin follow up Respiratory therapy f/u Scheduled incentive spirometry PRN DuoNebs Taper down O2 as tolerated Trend temperature and panculture if febrile F/U on serology Monitor urine output Renally dosed medications Replace MgSO4 with 2g IV F/U on anemia work-up Monitor for chest pain DVT- compression stockings 01/15/2020 Vital signs are stable She is wearing O2 at 1L Wearing glasses x1 assist with FWW States that she is doing well She is up in bed, watching TV, and eating States that she has a good appetite States that she is still having shortness of breath and that it still feels hard to breathe Discussed getting up and walking today to keep up her strength Discussed cutting down her IV to 50 Discussed giving potassium 20 MG x4 times today due to low levels in her labs Discussed giving her IV iron today and then starting half a tablet of iron daily due to low levels in her labs Discussed rechecking labs Discussed her chronic constipation and giving her a suppository to help her have a bowel movement 01/16/20 afebrile doing better but still wheezy . hypoxia now on 1 liter and ambulated yest . pleurisy better on Motrin . angiogram no p.e and lll atelectasis and gg appearance suggests pneumonia improving . neuro alert and oriented. carotids decreased no bruits . lungs crackles lll but decreased from yest. cor rrr with occ pvc sinus abd /back wnl. lab k 2.9 mg pending. chf with left pleural effusion improved with diuretics . pleurisy related to left pneumonia and effusion and no evidence of p.e/ ami or pericarditis but heart enlarged and echo ordered . plan home in am if cont to wean and improve. add spironolactone 50 mg day sec to hypokalemia and chf Subjective Update: 01/15/2020 Vital signs are stable She is wearing O2 at 1L Wearing glasses x1 assist with FWW States that she is doing well She is up in bed, watching TV, and eating States that she has a good appetite States that she is still having shortness of breath and that it still feels hard to breathe Discussed getting up and walking today to keep up her strength Discussed cutting down her IV to 50 Discussed giving potassium 20 MG x4 times today due to low levels in her labs Discussed giving her IV iron today and then starting half a tablet of iron daily due to low levels in her labs Discussed rechecking labs Discussed her chronic constipation and giving her a suppository to help her have a bowel movement Functional Status: Reports: Pain Controlled - Review of Systems General: Reports: No Symptoms HEENT: Reports: Glasses Pulmonary: Reports: Shortness of Breath Cardiovascular: Reports: Dyspnea on Exertion Gastrointestinal: Reports: Constipation Genitourinary: Reports: No Symptoms Musculoskeletal: Reports: No Symptoms Skin: Reports: No Symptoms Neurological: Reports: No Symptoms Psychiatric: Reports: No Symptoms - Patient Data Vitals - Most Recent: Last Vital Signs Temp 97.9 F 01/15/20 07:10 Pulse 72 01/15/20 08:08 Resp 24 H 01/15/20 07:10 BP 113/71 01/15/20 08:09 Pulse Ox 94 L 01/15/20 07:10 Weight - Most Recent: 71.668 kg I&O - Last 24 Hours: Brief History: previous cardiac angiogram 2 weeks ago with impaired e.f. but no active or critical cad or interventions done. starte having chest pain ll ribs with deep breathing 1 week ago then coughing no fever - Discharge Data Discharge Date: 01/18/20 Discharge Disposition: Home, Self-Care 01 Condition: Fair - Referral to Home Health Date of Face to Face Encounter: 01/17/20 Primary Care Physician: Tre Perrin MD - Discharge Diagnosis/Problem(s) (1) Heart failure SNOMED Code(s): 71620464 ICD Code: I50.9 - HEART FAILURE, UNSPECIFIED Status: Acute Priority: Low Current Visit: Yes Onset Date: ~01/16/20 Problem Details: echo ordered as o.p ./ still has hypoxia and dc home on oral antibiotics and started losartin and spironolactone Qualifiers: Heart failure type: combined systolic and diastolic Heart failure chronicity: acute on chronic Qualified Code(s): I50.43 - Acute on chronic combined systolic (congestive) and diastolic (congestive) heart failure (2) Hypertension SNOMED Code(s): 17853022 ICD Code: I10 - ESSENTIAL (PRIMARY) HYPERTENSION Status: Acute Priority: Medium Current Visit: Yes Onset Date: ~01/16/20 Problem Details: wheezing still present and hypoxia still requiring 2 liters/ cont lasix . very difficult to wean and continued findings on xray lll. start spironolactone . cont home o2 and reassess in one week with DR Perrin Qualifiers: Hypertension type: essential hypertension Qualified Code(s): I10 - Essential (primary) hypertension (3) Pneumonia SNOMED Code(s): 660305610 ICD Code: J18.9 - PNEUMONIA, UNSPECIFIED ORGANISM Status: Acute Priority: Medium Current Visit: Yes Onset Date: ~01/16/20 Problem Details: still having sign hypoxia and cont current antibiotic with negative angiogram yesterday ( other than infiltrate left lower lobe and atelectasis with effusion ) no evidence of any other process ongoing other than mild chf tendency / trop normal . ekg lbbb sinus rythm with nom spec t wave inversion suggesting lvh with lbbb findings. day 5 rocephin and azithromycin switch to augmentin x 5 days Qualifiers: Pneumonia type: due to unspecified organism Laterality: left Lung location: lower lobe of lung Qualified Code(s): J18.9 - Pneumonia, unspecified organism (4) History of myocardial infarction SNOMED Code(s): 921923794 ICD Code: I25.2 - OLD MYOCARDIAL INFARCTION Status: Acute Priority: Low Current Visit: Yes Onset Date: ~01/16/20 Problem Details: no evidence of new mi by trop or ekg changes but lbbb old.chest pain with pleuritic quality no increase with position changes and better down to 2 . neg pulm angiogram for p.e . fever and leukocytosis better (5) Hypokalemia due to loss of potassium SNOMED Code(s): 57579638 ICD Code: E87.6 - HYPOKALEMIA Status: Acute Priority: Medium Current Visit: Yes Onset Date: ~01/14/20 Problem Details: persistant hypokalemia despite replacment and increased losartin a nd added spironolactone and recheck in 48 hours (6) Pneumonia SNOMED Code(s): 528583832 ICD Code: J18.9 - PNEUMONIA, UNSPECIFIED ORGANISM Status: Acute Priority: Medium Current Visit: Yes Onset Date: ~01/14/20 Problem Details: weaned off o2 with sats borderline . chf improved and diuresing well but k low / start spironiolactone and increase losartin . Qualifiers: Pneumonia type: due to unspecified organism Laterality: left Lung location: lower lobe of lung Qualified Code(s): J18.9 - Pneumonia, unspecified organism (7) Atypical chest pain SNOMED Code(s): 534613472 ICD Code: R07.89 - OTHER CHEST PAIN Status: Acute Priority: Low Current Visit: No Onset Date: ~01/14/20 Problem Details: pleurasy resolved. (8) Hypokalemia SNOMED Code(s): 71318110 ICD Code: E87.6 - HYPOKALEMIA Status: Acute Priority: Medium Current Visit: Yes Onset Date: ~01/14/20 Problem Details: requires spironolactone and losartin sec to profound hypokalemia from lasix - Patient Summary/Data Consults: Consultations 01/13/20 17:40 OT Evaluation and Treatment [CONS] Routine PT Evaluation and Treatment [CONS] Routine - Patient Instructions Diet: Regular Diet as Tolerated Diet, Other: low sodium Activity: As Tolerated Activity, Other: walking with o2 at 2 liters Notify Provider of: Fever, Increased Pain, Nausea and/or Vomiting Other/Special Instructions: see primary md and get u.s /echo heart - Discharge Plan *PRESCRIPTION DRUG MONITORING PROGRAM REVIEWED*: Not Applicable *COPY OF PRESCRIPTION DRUG MONITORING REPORT IN PATIENT KATHY: Not Applicable Prescriptions/Med Rec: Losartan [Cozaar] 50 mg PO DAILY #30 tablet Sennosides [Natural Laxative] 8.6 mg PO ACDINNER #90 tablet Home Medications: Home Meds Aspirin [Halfprin] 81 mg PO BEDTIME 10/05/15 [History] Bumetanide [Bumex] 2 mg PO DAILY 10/05/15 [History] Calcium Carb,Gluc/Mag Ox,Gluc [Calcium Magnesium Caplet] 1 tab PO DAILY 10/05/15 [History] Calcium Carbonate/Vitamin D3 [Caltrate 600 Plus D3 Tablet] 1 tab PO DAILY 10/05/15 [History] Docusate Sodium [Colace] 100 mg PO BID 10/05/15 [History] Fish Oil/DHA/EPA [Fish Oil 1,200 MG] 1 tab PO BID 10/05/15 [History] Gabapentin [Neurontin] 400 mg PO DAILY 10/05/15 [History] Isosorbide Mononitrate [Imdur] 60 mg PO BID 10/05/15 [History] Losartan [Cozaar] 25 mg PO DAILY 10/05/15 [History] Nitroglycerin [Nitrostat] 0.4 mg SL Q5M PRN 10/05/15 [History] Sertraline [Zoloft] 50 mg PO DAILY 10/05/15 [History] Vitamin B Complex [B Complex] 1 tab PO DAILY 10/05/15 [History] carvediloL [Coreg] 25 mg PO BID 10/05/15 [History] Potassium Chloride 20 meq PO BID 04/23/16 [History] Pantoprazole [ProTONIX] 40 mg PO BIDAC #60 tab.cr 04/24/16 [Rx] Albuterol [Ventolin HFA] 1 puff INH Q6HR PRN 01/14/20 [History] Bumetanide [Bumex] 1 mg PO 1300 01/14/20 [History] Denosumab [Prolia] 1 ml SUBCUT ASDIRECTED 01/14/20 [History] Rosuvastatin [Crestor] 20 mg PO DAILY 01/14/20 [History] Aspirin [Halfprin] 81 mg PO BEDTIME tab.ec 01/17/20 [Rx] Docusate Sodium [Colace] 100 mg PO BID cap 01/17/20 [Rx] Ferrous Sulfate 162 mg PO DAILY tab.ec 01/17/20 [Rx] Isosorbide Mononitrate [Imdur] 60 mg PO DAILY tab.er 01/17/20 [Rx] Losartan [Cozaar] 50 mg PO DAILY #30 tablet 01/17/20 [Rx] Patient's Own Medication [Ptom] 0 each EYEBOTH DAILY each 01/17/20 [Rx] Sennosides [Natural Laxative] 8.6 mg PO ACDINNER #90 tablet 01/17/20 [Rx] Sertraline [Zoloft] 50 mg PO BEDTIME tablet 01/17/20 [Rx] Isosorbide Mononitrate [Imdur] 60 mg PO BID tab.er 01/18/20 [Rx] Nitroglycerin [Nitrostat] 0.4 mg SL Q5M PRN tab.sl 01/18/20 [Rx] Prednisolone Acetate/Pf [Prednisolone Acet 1% Eye Drop] 1 drop EYEBOTH QID 01/18/20 [History] Oxygen Therapy Mode: Nasal Cannula (1-2 liters cont) Oxygen Flow Rate (L/min): 90 Patient Handouts: Heart Failure, Self Care, Heart Failure Action Plan, Sepsis, Diagnosis, Adult, Community-Acquired Pneumonia, Adult Forms: ED Department Discharge Referrals: Tre Perrin MD [Primary Care Provider] - - Discharge Summary/Plan Comment DC Time >30 min.: Yes Discharge Summary/Plan Comment: see Dr Perrin with visit withen 5 days / check bnp/bmp/mag - General Info Date of Service: 01/18/20 Admission Dx/Problem (Free Text: pneumonia/ chf/ pleurisy Subjective Update: Admission Diagnosis/Problem Pneumonia 01/13/2020 79 year old female admitted to the floor from the ER where she presented with complaints of shortness of breath and diffused left-sided chest pain that started along the diaphragm and would radiate up towards the left shoulder for the last 3 weeks and was progressively getting worse Start Azithromycin and Ceftriaxone today to complete 5 days Procalcitonin today and every 48 hours 2 view CXR in AM Respiratory therapy eval and treat Scheduled incentive spirometry PRN DuoNebs Trend temperature and panculture if febrile 01/14/2020 Pain improved but not resolved BP trend 90-108/52-54 Tmax 98.6 HR 80-85 Sat >89% on 1L NC GFR improved from 29-53 WBC count now normal Mg 1.4 Anemia workup: normal retic, folate, B12; low iron and vitamin D CXR with obvious infiltrate in retrocardiac space on L lung Day 2 of antibiotics Hb lower , likely due to hemodilution, no signs of blood loss Still in pain but better Had a hard time sleeping due to the pain Shortness of breath is improving Tolerating diet Ambulating BM 01/11 O2 sat dropped to 89% overnight for which she was placed on 1L NC Continue Azithromycin and Ceftriaxone day 2 to complete 5 days Procalcitonin follow up Respiratory therapy f/u Scheduled incentive spirometry PRN DuoNebs Taper down O2 as tolerated Trend temperature and panculture if febrile F/U on serology Monitor urine output Renally dosed medications Replace MgSO4 with 2g IV F/U on anemia work-up Monitor for chest pain DVT- compression stockings 01/15/2020 Vital signs are stable She is wearing O2 at 1L Wearing glasses x1 assist with FWW States that she is doing well She is up in bed, watching TV, and eating States that she has a good appetite States that she is still having shortness of breath and that it still feels hard to breathe Discussed getting up and walking today to keep up her strength Discussed cutting down her IV to 50 Discussed giving potassium 20 MG x4 times today due to low levels in her labs Discussed giving her IV iron today and then starting half a tablet of iron daily due to low levels in her labs Discussed rechecking labs Discussed her chronic constipation and giving her a suppository to help her have a bowel movement 01/16/20 afebrile doing better but still whezy . hypoxia now on 1 liter and ambulated yest . pleurisy better on motirn . angiogram no p.e and lll atelectasis and gg appearance suggests pneumonia improving . neuro alert and oriented. carotids decreased no bruits . lungs crackles lll but decreased from yest. cor rrr with occ pvc sinus abd /back wnl. lab k 2.9 mg pending. chf with left pleural effusion improved with diuretics . pleurisy related to left pneumonia and effusion and no evidence of p.e/ ami or pericarditis but heart enlarged and echo ordered . plan home in am if cont to wean and improve. add spironolactone 50 mg day sec to hypokalemia and chf Subjective Update: 01/15/2020 Vital signs are stable She is wearing O2 at 1L Wearing glasses x1 assist with FWW States that she is doing well She is up in bed, watching TV, and eating States that she has a good appetite States that she is still having shortness of breath and that it still feels hard to breathe Discussed getting up and walking today to keep up her strength Discussed cutting down her IV to 50 Discussed giving potassium 20 MG x4 times today due to low levels in her labs Discussed giving her IV iron today and then starting half a tablet of iron daily due to low levels in her labs Discussed rechecking labs Discussed her chronic constipation and giving her a suppository to help her have a bowel movement Functional Status: Reports: Pain Controlled - Review of Systems General: Reports: No Symptoms HEENT: Reports: Glasses Pulmonary: Reports: Shortness of Breath Cardiovascular: Reports: Dyspnea on Exertion Gastrointestinal: Reports: Constipation Genitourinary: Reports: No Symptoms Musculoskeletal: Reports: No Symptoms Skin: Reports: No Symptoms Neurological: Reports: No Symptoms Psychiatric: Reports: No Symptoms - Patient Data Vitals - Most Recent: Last Vital Signs Temp 97.9 F 01/15/20 07:10 Pulse 72 01/15/20 08:08 Resp 24 H 01/15/20 07:10 BP 113/71 01/15/20 08:09 Pulse Ox 94 L 01/15/20 07:10 Weight - Most Recent: 71.668 kg I&O - Last 24 Hours: - Review of Systems General: Reports: No Symptoms HEENT: Reports: No Symptoms Pulmonary: Reports: No Symptoms, Shortness of Breath Cardiovascular: Reports: No Symptoms Gastrointestinal: Reports: No Symptoms Genitourinary: Reports: No Symptoms Musculoskeletal: Reports: No Symptoms Skin: Reports: No Symptoms Neurological: Reports: No Symptoms Psychiatric: Reports: No Symptoms - Patient Data Vitals - Most Recent: Last Vital Signs Temp 36.7 C 01/18/20 07:38 Pulse 77 01/18/20 08:02 Resp 20 01/18/20 07:38 BP 120/58 L 01/18/20 08:03 Pulse Ox 96 01/18/20 08:27 Weight - Most Recent: 68.447 kg I&O - Last 24 hours: Intake & Output 01/17/20 01/18/20 01/18/20 22:59 06:59 14:59 Intake Total 2120 400 Output Total 1800 1200 Balance 320 -800 Lab Results - Last 24 hrs: Laboratory Results - last 24 hr 01/17/20 01/17/20 01/17/20 Range/Units 14:11 14:11 14:11 Sodium 143 (136-145) mEq/L Potassium 3.8 (3.5-5.1) mEq/L Chloride 108 H (98-107) mEq/L Carbon Dioxide 24 (21-32) mEq/L Anion Gap 14.8 (5-15) BUN 11 (7-18) mg/dL Creatinine 0.8 (0.55-1.02) mg/dL Est Cr Clr Drug Dosing 45.10 mL/min Estimated GFR (MDRD) > 60 (>60) mL/min BUN/Creatinine Ratio 13.8 L (14-18) Glucose 102 (83-115) mg/dL Calcium 6.4 L (8.5-10.1) mg/dL Troponin I < 0.017 (0.00-0.056) ng/mL NT-Pro-B Natriuret Pep 3339 H (0-450) pg/mL NORAH Results - Last 24 hrs: Microbiology 01/13/20 13:49 Aerobic Blood Culture - Preliminary Blood - Venous - Lab Draw NO GROWTH AFTER 4 DAYS Anaerobic Blood Culture - Preliminary NO GROWTH AFTER 4 DAYS 01/13/20 13:39 Aerobic Blood Culture - Preliminary Blood - Venous NO GROWTH AFTER 4 DAYS Anaerobic Blood Culture - Preliminary NO GROWTH AFTER 4 DAYS Med Orders - Current: Current Medications Acetaminophen (Tylenol) 650 mg PO Q4H PRN PRN Reason: Pain (mild 1-3) Hydrocodone Bitart/Acetaminophen ([place] 325-5 Mg) 1 tab PO Q4H PRN PRN Reason: Pain (moderate 4-6) Last Admin: 01/15/20 08:11 Dose: 1 tab Documented by: Albuterol/Ipratropium (Duoneb 3.0-0.5 Mg/3 Ml) 3 ml NEB Q4HRRT PRN PRN Reason: Wheezing Last Admin: 01/17/20 13:52 Dose: 3 ml Documented by: Amlodipine Besylate (Norvasc) 2.5 mg PO DAILY KIRILL Last Admin: 01/18/20 08:01 Dose: 2.5 mg Documented by: Aspirin (Halfprin) 81 mg PO BEDTIME [facility] Last Admin: 01/17/20 21:47 Dose: 81 mg Documented by: Benzonatate (Tessalon Perles) 100 mg PO TID PRN PRN Reason: Cough Bumetanide (Bumex) 2 mg PO DAILY [facility] Last Admin: 01/18/20 08:00 Dose: 2 mg Documented by: Bumetanide (Bumex) 1 mg PO 1300 [facility] Last Admin: 01/17/20 12:38 Dose: 1 mg Documented by: Carvedilol (Coreg) 25 mg PO BID [facility] Last Admin: 01/18/20 08:02 Dose: 25 mg Documented by: Docusate Sodium (Colace) 100 mg PO BID [facility] Last Admin: 01/18/20 08:01 Dose: 100 mg Documented by: Ferrous Sulfate (Ferrous Sulfate) 162 mg PO DAILY [facility] Last Admin: 01/18/20 08:02 Dose: 162 mg Documented by: Gabapentin (Neurontin) 400 mg PO BEDTIME [facility] Last Admin: 01/17/20 21:47 Dose: 400 mg Documented by: Guaifenesin (Mucinex) 600 mg PO BID PRN PRN Reason: Cough Hydralazine HCl (Apresoline) 10 mg IVPUSH Q2H PRN PRN Reason: Hypertension Isosorbide Mononitrate (Imdur) 60 mg PO BID [facility] Last Admin: 01/18/20 08:02 Dose: 60 mg Documented by: Losartan Potassium (Cozaar) 50 mg PO DAILY [facility] Last Admin: 01/18/20 08:00 Dose: 50 mg Documented by: Nitroglycerin (Nitrostat) 0.4 mg SL Q5M PRN PRN Reason: Chest Pain Last Admin: 01/17/20 21:04 Dose: 0.4 mg Documented by: Ondansetron HCl (Zofran Odt) 4 mg PO Q6H PRN PRN Reason: nausea, able to take PO Last Admin: 01/16/20 17:16 Dose: 4 mg Documented by: Ondansetron HCl (Zofran) 4 mg IV Q6H PRN PRN Reason: Nausea/Vomiting Last Admin: 01/17/20 19:33 Dose: 4 mg Documented by: Similasan Eye Drop 1 (Drop Ptom) 0 each EYEBOTH DAILY [facility] Last Admin: 01/18/20 08:03 Dose: Not Given Documented by: Prednisolone Acet 1% (Eye Drop Ptom) 0 each EYEBOTH QID [facility] Potassium Chloride (Klor-Con M20) 20 meq PO BID [facility] Last Admin: 01/18/20 08:02 Dose: 20 meq Documented by: Rosuvastatin Calcium (Crestor) 20 mg PO DAILY [facility] Last Admin: 01/18/20 08:00 Dose: 20 mg Documented by: Senna (Senna) 8.6 mg PO BID [facility] Last Admin: 01/18/20 08:02 Dose: 8.6 mg Documented by: Sertraline HCl (Zoloft) 50 mg PO BEDTIME [facility] Last Admin: 01/17/20 21:45 Dose: 50 mg Documented by: Discontinued Medications Aspirin (Halfprin) 81 mg PO DAILY [facility] Bisacodyl (Dulcolax) 10 mg RECTAL ONETIME ONE Stop: 01/15/20 09:57 Last Admin: 01/15/20 11:20 Dose: 10 mg Documented by: Diphenhydramine HCl (Benadryl) 50 mg PO ONETIME ONE Stop: 01/15/20 13:01 Last Admin: 01/15/20 13:25 Dose: 50 mg Documented by: Furosemide (Lasix) 20 mg IVPUSH ONETIME STA Stop: 01/15/20 16:23 Last Admin: 01/15/20 16:26 Dose: 20 mg Documented by: Furosemide (Lasix) 20 mg IVPUSH ONETIME ONE Stop: 01/16/20 10:46 Last Admin: 01/16/20 11:32 Dose: 20 mg Documented by: Furosemide (Lasix) 20 mg IVPUSH ONETIME ONE Stop: 01/17/20 14:14 Last Admin: 01/17/20 14:53 Dose: 20 mg Documented by: Gabapentin (Neurontin) 400 mg PO DAILY [facility] Hydrocortisone Sodium Succinate (Solu-Cortef) 100 mg IVPUSH ONETIME ONE Stop: 01/15/20 13:01 Last Admin: 01/15/20 13:25 Dose: 100 mg Documented by: Hydromorphone HCl (Dilaudid) 0.25 mg IVPUSH ONETIME ONE Stop: 01/13/20 13:15 Last Admin: 01/13/20 13:56 Dose: 0.25 mg Documented by: Dextrose/Sodium Chloride (Dextrose 5%-Normal Saline) 1,000 mls @ 100 mls/hr IV ASDIRECTED [facility] Last Admin: 01/15/20 04:59 Dose: 100 mls/hr Documented by: Ceftriaxone Sodium 2 gm/ (Sodium Chloride) 100 mls @ 200 mls/hr IV Q24H [facility] Last Admin: 01/13/20 16:34 Dose: 200 mls/hr Documented by: Azithromycin 500 mg/ Sodium (Chloride) 250 mls @ 250 mls/hr IV ONETIME ONE Stop: 01/13/20 18:30 Last Admin: 01/13/20 17:54 Dose: 250 mls/hr Documented by: Azithromycin 500 mg/ Sodium (Chloride) 250 mls @ 250 mls/hr IV Q24H [facility] Stop: 01/17/20 17:59 Last Admin: 01/17/20 16:24 Dose: 250 mls/hr Documented by: Ceftriaxone Sodium 2 gm/ (Sodium Chloride) 100 mls @ 200 mls/hr IV Q24H [facility] Stop: 01/17/20 18:29 Last Admin: 01/17/20 18:06 Dose: 200 mls/hr Documented by: Magnesium Sulfate 2 gm/ Premix 50 mls @ 25 mls/hr IV ONETIME ONE Stop: 01/14/20 11:59 Last Admin: 01/14/20 10:30 Dose: 25 mls/hr Documented by: Dextrose/Sodium Chloride (Dextrose 5%-Normal Saline) 1,000 mls @ 50 mls/hr IV ASDIRECTED [facility] Ferric Sodium Gluconate Complex 250 mg/ Sodium Chloride 120 mls @ 60 mls/hr IV ONETIME ONE Stop: 01/15/20 12:59 Last Admin: 01/15/20 11:20 Dose: 60 mls/hr Documented by: Sodium Chloride (Normal Saline) 100 mls @ 75 mls/hr IV ASDIRECTED [facility] Stop: 01/15/20 16:00 Last Admin: 01/15/20 14:06 Dose: 75 mls/hr Documented by: Potassium Chloride 10 meq/ (Premix) 100 mls @ 100 mls/hr IV Q1H [facility] Stop: 01/16/20 14:59 Last Admin: 01/16/20 15:31 Dose: 100 mls/hr Documented by: Magnesium Sulfate 4 gm/ Premix 50 mls @ 12.5 mls/hr IV ONETIME ONE Stop: 01/16/20 21:59 Last Infusion: 01/16/20 18:34 Dose: 0 mls/hr Documented by: Potassium Chloride 10 meq/ (Premix) 100 mls @ 100 mls/hr IV Q1H [facility] Stop: 01/17/20 14:59 Last Admin: 01/17/20 14:42 Dose: 100 mls/hr Documented by: Lactated Ringer's (Ringers, Lactated) 1,000 mls @ 50 mls/hr IV ASDIRECTED [facility] Last Admin: 01/17/20 11:22 Dose: 50 mls/hr Documented by: Iopamidol (Isovue-370 (76%)) 100 ml IVPUSH ONETIME ONE Stop: 01/15/20 13:17 Last Admin: 01/15/20 14:05 Dose: 100 ml Documented by: Isosorbide Mononitrate (Imdur) 60 mg PO DAILY [facility] Last Admin: 01/17/20 08:44 Dose: 60 mg Documented by: Losartan Potassium (Cozaar) 50 mg PO DAILY [facility] Losartan Potassium (Cozaar) 25 mg PO DAILY [facility] Last Admin: 01/18/20 08:03 Dose: Not Given Documented by: Morphine Sulfate (Morphine) 2 mg IVPUSH Q4H PRN PRN Reason: Pain (severe 7-10) Stop: 01/14/20 17:44 Last Admin: 01/14/20 05:36 Dose: 2 mg Documented by: Ondansetron HCl (Zofran) 4 mg IVPUSH ONETIME ONE Stop: 01/13/20 13:15 Last Admin: 01/13/20 13:54 Dose: 4 mg Documented by: Pentoxifylline 400 (Mg) 0 each PO TID [facility] Last Admin: 01/14/20 21:15 Dose: Not Given Documented by: Rivaroxaban (Xarelto) 15 mg PO BID [facility] Last Admin: 01/16/20 08:59 Dose: Not Given Documented by: Sertraline HCl (Zoloft) 50 mg PO DAILY [facility] Sodium Chloride (Saline Flush) 10 ml FLUSH ONETIME PRN PRN Reason: IV FLUSH Stop: 01/15/20 16:00 Last Admin: 01/15/20 14:06 Dose: 10 ml Documented by: Spironolactone (Aldactone) 50 mg PO ONETIME ONE Stop: 01/17/20 10:55 Last Admin: 01/17/20 11:23 Dose: 50 mg Documented by: - Exam Quality Assessment: Reports: Supplemental Oxygen General: Reports: Alert, Oriented HEENT: Reports: Pupils Equal, Pupils Reactive, EOMI, Mucous Membr. Moist/[place]: Reports: Supple Lungs: Reports: Clear to Auscultation, Normal Respiratory Effort, Decreased Breath Sounds Cardiovascular: Reports: Regular Rate, Regular Rhythm GI/Abdominal Exam: Normal Bowel Sounds, Soft, Non-Tender, No Organomegaly, No Distention, No Abnormal Bruit, No Mass, Pelvis Stable (Female) Exam: Normal External Exam, Normal Speculum Exam, Normal Bimanual Exam Rectal (Female) Exam: Normal Exam, Normal Rectal Tone Back Exam: Reports: Normal Inspection, Full Range of Motion Extremities: Normal Inspection, Normal Range of Motion, Non-Tender, No Pedal Edema, Normal Capillary Refill Skin: Reports: Warm, Dry, Intact Wound/Incisions: Reports: Healing Well Neurological: Reports: No New Focal Deficit Psy/Mental Status: Reports: Alert, Normal Affect, Normal Mood
[2020-01-18 12:07] VITALS: BP 96/64; PULSE 76
[2020-01-18] MEDS ORDERED: EYE EYEBOTH SCH (13:00)
[2020-01-18] MEDS ORDERED: PREDNISOLONE ACET 1% EYEBOTH SCH (13:00)
== END 2020-01-18 15:15 | disposition home or self-care (01) | DRG 291 ==
LOC: JD.ED 12:28 → JD.MS 17:34
PROVIDERS: ADMIT Internal Medicine; ATTEND Internal Medicine
DX: I13.0 Hypertensive heart and chronic kidney disease with heart failure and stage 1 through stage 4 chronic kidney disease, or unspecified chronic kidney disease (principal); H40.9 Unspecified glaucoma; J18.9 Pneumonia, unspecified organism; I50.43 Acute on chronic combined systolic (congestive) and diastolic (congestive) heart failure; N17.9 Acute kidney failure, unspecified; I50.9 Heart failure, unspecified; I42.9 Cardiomyopathy, unspecified; H54.7 Unspecified visual loss; E87.6 Hypokalemia; K59.09 Other constipation; Z87.891 Personal history of nicotine dependence; I25.10 Atherosclerotic heart disease of native coronary artery without angina pectoris; E78.00 Pure hypercholesterolemia, unspecified; I73.9 Peripheral vascular disease, unspecified; Z20.828 Contact with and (suspected) exposure to other viral communicable diseases; Z90.13 Acquired absence of bilateral breasts and nipples; J44.9 Chronic obstructive pulmonary disease, unspecified; K21.9 Gastro-esophageal reflux disease without esophagitis; K44.9 Diaphragmatic hernia without obstruction or gangrene; G89.29 Other chronic pain; M54.9 Dorsalgia, unspecified; M81.0 Age-related osteoporosis without current pathological fracture; M19.90 Unspecified osteoarthritis, unspecified site; F32.9 Major depressive disorder, single episode, unspecified; Z98.61 Coronary angioplasty status; Z88.8 Allergy status to other drugs, medicaments and biological substances; Z91.041 Radiographic dye allergy status; E55.9 Vitamin D deficiency, unspecified; D63.1 Anemia in chronic kidney disease; E78.5 Hyperlipidemia, unspecified; H35.30 Unspecified macular degeneration; I25.2 Old myocardial infarction; Z79.82 Long term (current) use of aspirin; Z79.899 Other long term (current) drug therapy; Z95.810 Presence of automatic (implantable) cardiac defibrillator; Z85.3 Personal history of malignant neoplasm of breast; Z98.49 Cataract extraction status, unspecified eye; Z90.710 Acquired absence of both cervix and uterus; Z90.11 Acquired absence of right breast and nipple; Z11.59 Encounter for screening for other viral diseases
CPT/HCPCS: 36415; 71045; 74176; 80053; 81001; 82306; 83540; 83605; 83880; 84145; 84156; 84166; 84466; 84484; 85007; 85027; 85379; 85610; 85652; 85730; 86140; 87040 ×2; 87086; 93005; 96365; 96375; 99285; J0696; J1170; J2405; J7042; J7050; U0002; 71046; 71046-26; 71275; 71275-26; 80048; 82570; 82607; 82746; 82784; 83735; 83883; 84100; 84155; 84165; 84300; 85025; 85045; 86738; 87899; 93010; 93306; 94640; 94760; 94761; 97110-GP; 97112-GP; 97116-GP; 97162-GP; 97165-GO; 99222; 99232; A9270-GY; J0456; J1720; J2270; J2916; J3475; J3480; J7120; J7620-GY; Q9967

== ENCOUNTER 2021-03-19 08:03 | Emergency (ER) | payer MEDICARE, OTHER ==
[2021-03-19] MEDS ORDERED: Sodium Chloride 0.9% 10 ML Syringe FLUSH PRN (08:29)
[2021-03-19] MEDS ORDERED: HYDROmorphone 0.5 MG/0.5 ML Syringe IVPUSH ONE (08:29)
[2021-03-19 08:31] VITALS: PULSE 72
--- NOTE | 2021-03-19 08:35 | EDM.PDOC ---
ED HPI GENERAL MEDICAL PROBLEM - General Chief Complaint: Respiratory Problem Stated Complaint: PAIN WHILE BREATHING Time Seen by Provider: 03/19/21 08:21 Source of Information: Reports: Patient History Limitations: Reports: No Limitations - History of Present Illness INITIAL COMMENTS - FREE TEXT/NARRATIVE: The patient presents with right sided chest pain. This started yesterday. The pain is made worse by deep breathing. She does have shortness of breath with it. She has no fever, chills or cough. She had surgery in [place] on her right shoulder on the of last month. She had a shoulder replacement. She has no abdominal pain, nausea or vomiting. She has no history of DVT or PE. She has no pain or swelling in either legs. Onset: Gradual Duration: Day(s): (Yesterday) Location: Reports: Chest Quality: Reports: Sharp Severity: Moderate Improves with: Reports: None Worsens with: Reports: Breathing Associated Symptoms: Reports: Chest Pain, Shortness of Breath. Denies: Cough, Fever/Chills, Headaches, Nausea/Vomiting Right Chest Pain Score (Numeric/FACES): 10 - Related Data Allergies Allergy/AdvReac Type Severity Reaction Status Date / Time iodine Allergy Severe Hives Verified 03/19/21 08:24 diphenhydramine AdvReac Severe Other Verified 03/19/21 08:24 [From Benadryl] lisinopril AdvReac Severe Cough Verified 03/19/21 08:24 regadenoson [From Lexiscan] AdvReac Severe Tachycardia Verified 03/19/21 08:24 contrast dye Allergy Severe Hives Uncoded 03/19/21 08:24 Home Meds: Home Meds Aspirin [Halfprin] 81 mg PO BEDTIME 10/05/15 [History] Bumetanide [Bumex] 2 mg PO DAILY 10/05/15 [History] Calcium Carb,Gluc/Mag Ox,Gluc [Calcium Magnesium Caplet] 1 tab PO DAILY 10/05/15 [History] Calcium Carbonate/Vitamin D3 [Caltrate 600 Plus D3 Tablet] 1 tab PO DAILY 10/05/15 [History] Fish Oil/DHA/EPA [Fish Oil 1,200 MG] 1 tab PO BID 10/05/15 [History] Gabapentin [Neurontin] 400 mg PO DAILY 10/05/15 [History] Nitroglycerin [Nitrostat] 0.4 mg SL Q5M PRN 10/05/15 [History] Sertraline [Zoloft] 50 mg PO DAILY 10/05/15 [History] Vitamin B Complex [B Complex] 1 tab PO DAILY 10/05/15 [History] carvediloL [Coreg] 25 mg PO BID 10/05/15 [History] Potassium Chloride 20 meq PO BID 04/23/16 [History] Pantoprazole [ProTONIX] 40 mg PO BIDAC #60 tab.cr 04/24/16 [Rx] Albuterol [Ventolin HFA] 1 puff INH Q6HR PRN 01/14/20 [History] Bumetanide [Bumex] 1 mg PO 1300 01/14/20 [History] Denosumab [Prolia] 1 ml SUBCUT ASDIRECTED 01/14/20 [History] Rosuvastatin [Crestor] 20 mg PO DAILY 01/14/20 [History] Docusate Sodium [Colace] 100 mg PO BID cap 01/17/20 [Rx] Ferrous Sulfate 162 mg PO DAILY tab.ec 01/17/20 [Rx] Patient's Own Medication [Ptom] 0 each EYEBOTH DAILY each 01/17/20 [Rx] Sennosides [Natural Laxative] 8.6 mg PO ACDINNER #90 tablet 01/17/20 [Rx] Sertraline [Zoloft] 50 mg PO BEDTIME tablet 01/17/20 [Rx] Amoxicillin/Clavulanate K [Augmentin 875-125 MG] 1 tab PO BID #10 tablet 01/18/20 [Rx] Isosorbide Mononitrate [Imdur] 60 mg PO BID tab.er 01/18/20 [Rx] Losartan [Cozaar] 50 mg PO DAILY #30 tab 01/18/20 [Rx] Nitroglycerin [Nitrostat] 0.4 mg SL Q5M PRN tab.sl 01/18/20 [Rx] Prednisolone Acetate/Pf [Prednisolone Acet 1% Eye Drop] 1 drop EYEBOTH QID 01/18/20 [History] Spironolactone 50 mg PO DAILY #30 tablet 01/18/20 [Rx] Past Medical History HEENT History: Reports: Cataract, Glaucoma, Impaired Vision Other HEENT History: wears glasses, has upper partial Cardiovascular History: Reports: CAD, Cardiomyopathy, Heart Failure, High Cholesterol, [place], PVD, SOB on Exertion Other Cardiovascular History: HX [place] 1981 with resultant cardiomyopathy - 2014 Echo with EF 30% Respiratory History: Reports: COPD, SOB Gastrointestinal History: Reports: GERD Other Gastrointestinal History: dysphagia, gastritis, hiatal hernia, polyp, nausea Genitourinary History: Reports: Urinary Incontinence Other FE[employer] ELEV[employer] WORKER History: pelvic relaxation, hx breast Cancer, bilateral masectomy, ovarian cystectomy, hysterectomy, cystocele, rectocele Musculoskeletal History: Reports: Back Pain, Chronic, Osteoarthritis, Osteoporosis Other Musculoskeletal History: degernative joint disease Neurological History: Reports: Other (See Below) Other Neuro History: vertigo Psychiatric History: Reports: Depression Endocrine/Metabolic History: Reports: Osteoporosis, Vitamin D Deficiency Hematologic History: Reports: Anemia, Blood Transfusion(s) Immunologic History: Reports: None Oncologic (Cancer) History: Reports: Breast - Infectious Disease History Infectious Disease History: Reports: None - Past Surgical History HEENT Surgical History: Reports: Cataract Surgery Cardiovascular Surgical History: Reports: Other (See Below) Other Cardiovascular Surgeries/Procedures: Angiogram December 2019--negative for any significant coronary disease blockage. GI Surgical History: Reports: Colonoscopy, EGD Other GI Surgeries/Procedures: hemorrhoidectomy, rectocele repair Female Surgical History: Reports: Breast Reconstruction, Hysterectomy, Mastectomy, Salpingo-Oophorectomy, Other (See Below) Other Female Surgeries/Procedures: ovarian cystectomy, rectocele repair Musculoskeletal Surgical History: Reports: Shoulder Surgery Oncologic Surgical History: Reports: Mastectomy Social & Family History - Family History Family Medical History: No Pertinent Family History - Tobacco Use Tobacco Use Status *Q: Never Tobacco User - Caffeine Use Caffeine Use: Reports: None - Recreational Drug Use Recreational Drug Use: No - Living Situation & Occupation Living situation: Reports: Occupation: Retired ED ROS GENERAL - Review of Systems Review Of Systems: See Below Constitutional: Reports: No Symptoms HEENT: Reports: No Symptoms Respiratory: Reports: Shortness of Breath. Denies: Cough Cardiovascular: Reports: Chest Pain Endocrine: Reports: No Symptoms GI/Abdominal: Reports: No Symptoms : Reports: No Symptoms Musculoskeletal: Reports: No Symptoms ED EXAM, GENERAL - Physical Exam Exam: See Below Exam Limited By: No Limitations General Appearance: Alert, No Apparent Distress Ears: Normal External Exam Nose: Normal Inspection Head: Atraumatic, Normocephalic Neck: Normal Inspection Respiratory/Chest: No Respiratory Distress, Lungs Clear, Normal Breath Sounds Cardiovascular: Regular Rate, Rhythm, No Edema, No Murmur GI/Abdominal: Soft, Non-Tender, No Organomegaly, No Mass Back Exam: Normal Inspection Extremities: Normal Inspection #1 Interpretation EKG Date: 03/19/21 Time: 08:29 Rhythm: NSR Rate (Beats/Min): 67 [place]: LAD-Left [place] Deviation P-Wave: Present QRS: LBBB ST-T: Normal QT: Normal Course - Vital Signs Last Recorded V/S: Last Vital Signs Temp 97.1 F 03/19/21 08:21 Pulse 72 03/19/21 08:21 Resp 18 03/19/21 08:21 BP Pulse Ox 97 03/19/21 08:21 - Orders/Labs/Meds Orders: Active Orders 24 hr Category Date Time Status Cardiac Monitoring [RC] . DIRECTED Care 03/19/21 08:29 Active Oxygen Therapy Adult [Oxygen Therapy, ED] [RC] Care 03/19/21 13:01 Active ASDIRECTED Oxygen Therapy [RC] PRN Care 03/19/21 08:29 Active Peripheral IV Care [RC] . DIRECTED Care 03/19/21 08:29 Active Ang Chest [CT] Stat Exams 03/19/21 09:41 Taken Chest 1V Frontal [CR] Stat Exams 03/19/21 08:29 Taken BLOOD CULTURE [MREF] Stat Lab 03/19/21 13:01 Ordered BLOOD CULTURE [MREF] Stat Lab 03/19/21 13:01 Ordered LACTIC ACID [CHEM] Stat Lab 03/19/21 13:00 Ordered Heparin Sodium/D5W [Heparin 25,000 Units in D5W 500 ML] Med 03/19/21 13:15 Active 25,000 units in 500 ml IV TITRATE Sodium Chloride 0.9% [Saline Flush] Med 03/19/21 08:29 Active 10 ml FLUSH ASDIRECTED PRN cefTRIAXone [Rocephin] 2 gm Med 03/19/21 13:01 Active Sodium Chloride 0.9% [Normal Saline] 100 ml IV ONETIME Blood Culture x2 Reflex Set [OM.PC] Stat Oth 03/19/21 13:00 Ordered Peripheral IV Insertion Adult [OM.PC] Stat Oth 03/19/21 08:29 Ordered Medication Orders Ceftriaxone Sodium 2 gm/ (Sodium Chloride) 100 mls @ 200 mls/hr IV ONETIME ONE Stop: 03/19/21 13:30 Heparin Sodium/Dextrose (Heparin 25,000 Units In D5w 500 Ml) 25,000 units in 500 mls @ 19.636 mls/hr IV TITRATE KIRILL; Protocol Sodium Chloride (Sodium Chloride 0.9% 10 Ml Syringe) 10 ml FLUSH ASDIRECTED PRN PRN Reason: Keep Vein Open Last Admin: 03/19/21 09:16 Dose: 10 ml Documented by: DOM Labs: Laboratory Tests 03/19/21 03/19/21 03/19/21 Range/Units 08:36 08:36 08:36 WBC 8.29 (3.98-10.04) K/mm3 RBC 3.62 L (3.98-5.22) M/mm3 Hgb 10.7 L (11.2-15.7) gm/dl Hct 33.3 L (34.1-44.9) % MCV 92.0 (79.4-94.8) fl MCH 29.6 (25.6-32.2) pg MCHC 32.1 L (32.2-35.5) g/dl RDW Std Deviation 44.8 (36.4-46.3) fL Plt Count 242 (182-369) K/mm3 MPV 9.5 (9.4-12.3) fl Neut % (Auto) 72.7 H (34.0-71.1) % Lymph % (Auto) 14.7 L (19.3-51.7) % [place] % (Auto) 10.0 (4.7-12.5) % Eos % (Auto) 2.2 (0.7-5.8) Baso % (Auto) 0.2 (0.1-1.2) % Neut # (Auto) 6.02 (1.56-6.13) K/mm3 Lymph # (Auto) 1.22 (1.18-3.74) K/mm3 [place] # (Auto) 0.83 H (0.24-0.36) K/mm3 Eos # (Auto) 0.18 (0.04-0.36) K/mm3 Baso # (Auto) 0.02 (0.01-0.08) K/mm3 D-Dimer, Quantitative 4.54 H (0.19-0.50) mg/L Sodium 143 (136-145) mEq/L Potassium 3.3 L (3.5-5.1) mEq/L Chloride 106 (98-107) mEq/L Carbon Dioxide 28 (21-32) mEq/L Anion Gap 12.3 (5-15) BUN 30 H (7-18) mg/dL Creatinine 1.2 H (0.55-1.02) mg/dL Est Cr Clr Drug Dosing 29.57 mL/min Estimated GFR (MDRD) 43 (>60) mL/min BUN/Creatinine Ratio 25.0 H (14-18) Glucose 120 H (70-99) mg/dL Calcium 8.5 D (8.5-10.1) mg/dL Total Bilirubin 1.0 (0.2-1.0) mg/dL AST 13 L (15-37) U/L ALT 15 (14-59) U/L Alkaline Phosphatase 95 (46-116) U/L Troponin I < 0.017 (0.00-0.056) ng/mL Total Protein 7.2 (6.4-8.2) g/dl Albumin 3.6 (3.4-5.0) g/dl Globulin 3.6 gm/dL Albumin/Globulin Ratio 1.0 (1-2) SARS-CoV-2 RNA ([facility]) (NEGATIVE) 03/19/21 Range/Units 11:55 WBC (3.98-10.04) K/mm3 RBC (3.98-5.22) M/mm3 Hgb (11.2-15.7) gm/dl Hct (34.1-44.9) % MCV (79.4-94.8) fl MCH (25.6-32.2) pg MCHC (32.2-35.5) g/dl RDW Std Deviation (36.4-46.3) fL Plt Count (182-369) K/mm3 MPV (9.4-12.3) fl Neut % (Auto) (34.0-71.1) % Lymph % (Auto) (19.3-51.7) % [place] % (Auto) (4.7-12.5) % Eos % (Auto) (0.7-5.8) Baso % (Auto) (0.1-1.2) % Neut # (Auto) (1.56-6.13) K/mm3 Lymph # (Auto) (1.18-3.74) K/mm3 [place] # (Auto) (0.24-0.36) K/mm3 Eos # (Auto) (0.04-0.36) K/mm3 Baso # (Auto) (0.01-0.08) K/mm3 D-Dimer, Quantitative (0.19-0.50) mg/L Sodium (136-145) mEq/L Potassium (3.5-5.1) mEq/L Chloride (98-107) mEq/L Carbon Dioxide (21-32) mEq/L Anion Gap (5-15) BUN (7-18) mg/dL Creatinine (0.55-1.02) mg/dL Est Cr Clr Drug Dosing mL/min Estimated GFR (MDRD) (>60) mL/min BUN/Creatinine Ratio (14-18) Glucose (70-99) mg/dL Calcium (8.5-10.1) mg/dL Total Bilirubin (0.2-1.0) mg/dL AST (15-37) U/L ALT (14-59) U/L Alkaline Phosphatase (46-116) U/L Troponin I (0.00-0.056) ng/mL Total Protein (6.4-8.2) g/dl Albumin (3.4-5.0) g/dl Globulin gm/dL Albumin/Globulin Ratio (1-2) SARS-CoV-2 RNA ([facility]) Negative (NEGATIVE) Meds: Medications Generic Name Dose Route Start Last Admin Trade Name Freq PRN Reason Stop Dose Admin Ceftriaxone Sodium 2 gm/ 100 mls @ 200 mls/hr 03/19/21 13:01 Sodium Chloride IV 03/19/21 13:30 ONETIME ONE Heparin Sodium/Dextrose 25,000 units in 500 mls @ 19.636 mls/hr 03/19/21 13:15 Heparin 25,000 Units In D5w 500 Ml IV TITRATE [facility] Protocol 15 UNITS/KG/HR Sodium Chloride 10 ml 03/19/21 08:29 03/19/21 09:16 Sodium Chloride 0.9% 10 Ml Syringe FLUSH 10 ml ASDIRECTED PRN Administration Keep Vein Open Discontinued Medications Generic Name Dose Route Start Last Admin Trade Name Denisha PRN Reason Stop Dose Admin Diphenhydramine HCl 50 mg 03/19/21 09:41 03/19/21 10:17 Diphenhydramine 50 Mg/Ml Sdv IVPUSH 03/19/21 09:42 50 mg ONETIME ONE Administration Hydromorphone HCl 0.25 mg 03/19/21 08:29 03/19/21 08:45 Hydromorphone 0.5 Mg/0.5 Ml Syringe IVPUSH 03/19/21 08:30 0.25 mg ONETIME ONE Administration Sodium Chloride 500 mls @ 500 mls/hr 03/19/21 10:57 03/19/21 11:34 Normal Saline IV 03/19/21 11:56 500 mls/hr .BOLUS ONE Administration Iopamidol 100 ml 03/19/21 10:11 Iopamidol 755 Mg/Ml 100 Ml Bottle IVPUSH 03/19/21 10:12 ONETIME ONE Methylprednisolone Sodium Succinate 125 mg 03/19/21 09:40 03/19/21 10:19 Methylprednisolone Sodium Succinate 125 Mg/2 Ml Sdv IVPUSH 03/19/21 09:41 125 mg ONETIME ONE Administration Rivaroxaban 15 mg 03/19/21 13:02 Rivaroxaban 15 Mg Tab PO 03/19/21 13:03 ONETIME ONE - Re-Assessments/Exams Free Text/Narrative Re-Assessment/Exam: 03/19/21 08:34 I ordered an IV saline lock, dilaudid 0.25mg IV, labs, EKG, and a CXR. Her EKG shows a LBBB which is old for her. 03/19/21 13:04 Her CXR shows nothing acute. 03/19/21 13:05 Her WBC was normal. Her Hgb was low at 10.7. Her D-dimer was elevated at 4.54. Her K was low at 3.3. Her creatinine was slightly elevated at 1.2. Her glucose was 120. Her troponin was negative. I have ordered a CT angio of her chest. She is allergic to IV dye. I ordered solu-medrol 125mg IV and benadryl 50mg IV. The CT showed findings suspicious for acute PE in the right middle lobe pulmonary artery. Multifocal pneumonia concerning for COVID 19 pneumonia. Cardiomegaly with pericardial effusion. 03/19/21 13:16 I feel she needs to be admitted. We have no beds here. I called [facility] in [place] and talked with Dr Strange and he accepted the patient. He did not want xarelto but wanted a heparin drip. 03/19/21 13:25 I will transfer by ambulance. Departure - Departure Time of Disposition: 13:30 Disposition: DC/Tfer to [facility] Condition: Serious Clinical Impression: Pericardial effusion Pneumonia Qualifiers: Pneumonia type: due to unspecified organism Laterality: bilateral Lung location: unspecified part of lung Qualified Code(s): J18.9 - Pneumonia, unspecified organism Pulmonary embolism Qualifiers: Pulmonary embolism type: other Chronicity: acute Acute cor pulmonale presence: unspecified Qualified Code(s): I26.99 - Other pulmonary embolism without acute cor pulmonale - Discharge Information Referrals: Tre Perrin MD [Primary Care Provider] - Forms: ED Department Discharge Sepsis Event Note (ED) - Evaluation Sepsis Screening Result: No Definite Risk - Focused Exam Vital Signs: Vital Signs Temp Pulse Resp Pulse Ox 03/19/21 08:21 97.1 F 72 18 97 - My Orders Last 24 Hours: My Active Orders 03/19/21 08:29 Cardiac Monitoring [RC] . DIRECTED Oxygen Therapy [RC] PRN Peripheral IV Care [RC] . DIRECTED Chest 1V Frontal [CR] Stat Sodium Chloride 0.9% [Saline Flush] 10 ml FLUSH ASDIRECTED PRN Peripheral IV Insertion Adult [OM.PC] Stat 03/19/21 09:41 Ang Chest [CT] Stat 03/19/21 13:00 LACTIC ACID [CHEM] Stat Blood Culture x2 Reflex Set [OM.PC] Stat 03/19/21 13:01 Oxygen Therapy Adult [Oxygen Therapy, ED] [RC] ASDIRECTED BLOOD CULTURE [MREF] Stat BLOOD CULTURE [MREF] Stat cefTRIAXone [Rocephin] 2 gm Sodium Chloride 0.9% [Normal Saline] 100 ml IV ONETIME 03/19/21 13:15 Heparin Sodium/D5W [Heparin 25,000 Units in D5W 500 ML] 25,000 units in 500 ml IV TITRATE - Assessment/Plan Last 24 Hours: My Active Orders 03/19/21 08:29 Cardiac Monitoring [RC] . DIRECTED Oxygen Therapy [RC] PRN Peripheral IV Care [RC] . DIRECTED Chest 1V Frontal [CR] Stat Sodium Chloride 0.9% [Saline Flush] 10 ml FLUSH ASDIRECTED PRN Peripheral IV Insertion Adult [OM.PC] Stat 03/19/21 09:41 Ang Chest [CT] Stat 03/19/21 13:00 LACTIC ACID [CHEM] Stat Blood Culture x2 Reflex Set [OM.PC] Stat 03/19/21 13:01 Oxygen Therapy Adult [Oxygen Therapy, ED] [RC] ASDIRECTED BLOOD CULTURE [MREF] Stat BLOOD CULTURE [MREF] Stat cefTRIAXone [Rocephin] 2 gm Sodium Chloride 0.9% [Normal Saline] 100 ml IV ONETIME 03/19/21 13:15 Heparin Sodium/D5W [Heparin 25,000 Units in D5W 500 ML] 25,000 units in 500 ml IV TITRATE
[2021-03-19] MEDS ORDERED: methylPREDNISolone Sodium Succinate 125 MG/2 ML SDV IVPUSH ONE (09:40)
[2021-03-19] MEDS ORDERED: diphenhydrAMINE 50 MG/ML SDV IVPUSH ONE (09:41)
[2021-03-19] MEDS ORDERED: Iopamidol 755 Mg/ML 100 ML Bottle IVPUSH ONE (10:11)
[2021-03-19] MEDS ORDERED: Sodium Chloride 0.9% 500 ML IV ONE (10:57)
[2021-03-19] MEDS ORDERED: cefTRIAXone 2 GM in Sodium Chloride 0.9% 100 ML IV ONE (13:01)
[2021-03-19] MEDS ORDERED: Rivaroxaban 15 MG Tab PO ONE (13:02)
[2021-03-19] MEDS ORDERED: Heparin Sodium/D5W 25,000 UNITS/500 ML BAG IV SCH (13:15)
--- NOTE | 2021-03-20 07:04 | CR ---
Chest: Portable view of the chest was obtained. Comparison: Prior chest x-ray of 01/17/20. Heart size is slightly enlarged. AICD is present. Right shoulder prosthesis is noted. Slight degenerative change and scoliosis is noted within the spine. Surgical clips are seen within the right chest wall and axillary region. Patchy increased density within the right lung base is seen. Lungs otherwise are clear. Impression: 1. Findings suspicious for mild area of pneumonia within the right lung base. 2. Other chronic appearing findings as noted above. Diagnostic code #3
--- NOTE | 2021-03-20 07:13 | CT ---
CT chest Technique: Multiple axial sections were obtained from above the lung apices inferiorly through the lung bases. Intravenous contrast was utilized. Study has been performed as a pulmonary angiogram protocol. Comparison: Prior chest CT study of 01/15/20 and chest x-ray performed earlier today (8:42 AM). Findings: Pulmonary arteries are well opacified. Equivocal filling defect is noted within an upper right pulmonary artery. Difficult to exclude minimal pulmonary embolism. Questionable filling defect within the right middle lobe possibly due to additional minimal pulmonary embolism. No other findings are appreciated to indicate definite pulmonary emboli. Ascending aorta is slightly ectatic with an AP dimension of 3.8 cm which is stable. Mediastinum and hilar regions show no adenopathy. Bilateral breast prostheses are noted. Small pericardial effusion is seen posteriorly within the heart. Visualized upper abdominal structures show nothing acute. Patchy increased density is noted within the right lung base which is an interval change from prior chest CT. Patchy areas of groundglass appearance are seen within both upper lungs which appear to be fairly similar to previous exam. Impression: 1. Slight density within the right lung base raising the possibility of pneumonia. 2. Groundglass appearance within both upper lungs which is stable from prior chest CT. 3. Possible minimal pulmonary emboli within the right upper lung and right middle lobe. 4. Other findings believed to be incidental as noted above. Diagnostic code #3 I agree with preliminary report from [facility], finalized on 03/19/21, 12:42 PM CDT, code 1
== END 2021-03-19 14:35 ==
LOC: JD.ED 08:03
DX: J18.9 Pneumonia, unspecified organism (principal); I26.99 Other pulmonary embolism without acute cor pulmonale; I31.3 Pericardial effusion (noninflammatory); I25.10 Atherosclerotic heart disease of native coronary artery without angina pectoris; I50.9 Heart failure, unspecified; E78.00 Pure hypercholesterolemia, unspecified; I25.2 Old myocardial infarction; J44.9 Chronic obstructive pulmonary disease, unspecified; K21.9 Gastro-esophageal reflux disease without esophagitis; M19.90 Unspecified osteoarthritis, unspecified site; D64.9 Anemia, unspecified; I44.7 Left bundle-branch block, unspecified; Z88.8 Allergy status to other drugs, medicaments and biological substances; Z91.041 Radiographic dye allergy status; Z79.82 Long term (current) use of aspirin; Z79.899 Other long term (current) drug therapy; Z20.822 Contact with and (suspected) exposure to COVID-19
CPT/HCPCS: 36415; 71045; 71275; 80053; 83605; 84484; 85025; 85379; 87040; 93005; 96365; 96368; 96375; 99285; J0696; J1170; J1200; J1644; J2930; J7030; U0002; 93010

== ENCOUNTER 2021-07-19 05:51 | Emergency (ER) | payer MEDICARE, OTHER ==
[2021-07-19] MEDS ORDERED: Sodium Chloride 0.9% 10 ML Syringe FLUSH PRN (06:05)
[2021-07-19] MEDS ORDERED: Albuterol/Ipratropium 3.0-0.5 MG/3 ML Neb Soln NEB ONE ×3 (06:12→11:01)
[2021-07-19] MEDS ORDERED: Furosemide 40 MG/4 ML VIAL IVPUSH ONE ×2 (07:05→13:40)
[2021-07-19 07:07] LABS: CORONAVIRUS COVID-19 NAA NEGATIVE (NEGATIVE)
[2021-07-19] MEDS ORDERED: methylPREDNISolone Sodium Succinate 125 MG/2 ML SDV IVPUSH ONE (09:19)
[2021-07-19 14:31] VITALS: BP 126/94
[2021-07-19 15:16] VITALS: PULSE 88
== END 2021-07-19 15:14 | disposition home or self-care (01) ==
LOC: JD.ED 05:51
DX: J44.1 Chronic obstructive pulmonary disease with (acute) exacerbation (principal); I50.9 Heart failure, unspecified; N18.9 Chronic kidney disease, unspecified; I25.10 Atherosclerotic heart disease of native coronary artery without angina pectoris; E78.00 Pure hypercholesterolemia, unspecified; M19.90 Unspecified osteoarthritis, unspecified site; Z91.041 Radiographic dye allergy status; Z88.8 Allergy status to other drugs, medicaments and biological substances; Z79.82 Long term (current) use of aspirin; Z79.899 Other long term (current) drug therapy; Z87.891 Personal history of nicotine dependence; Z20.822 Contact with and (suspected) exposure to COVID-19
CPT/HCPCS: 0240U; 36415; 36600; 71045; 80053; 82803; 83605; 83880; 84484; 85007; 85027; 85379; 86140; 87040; 93005; 94640; 96374; 96375; 96376; 99285; J1940; J2930; J7620-GY

== ENCOUNTER 2022-03-05 18:12 | Emergency (ER) | payer MEDICARE, OTHER ==
[2022-03-05 18:51] VITALS: BP 117/54; PULSE 85
[2022-03-05] MEDS ORDERED: Ondansetron 4 MG/2 ML SDV IVPUSH ONE (19:18)
[2022-03-05] MEDS ORDERED: Sodium Chloride 0.9% 1,000 ML IV ONE (19:18)
[2022-03-05] MEDS ORDERED: Ketorolac 15 MG/ML SDV IVPUSH ONE (19:19)
[2022-03-05 20:00] LABS: CORONAVIRUS COVID-19 NAA NEGATIVE (NEGATIVE)
[2022-03-05] MEDS ORDERED: Furosemide 20 MG/2 ML VIAL IVPUSH ONE (23:43)
== END 2022-03-06 00:31 | disposition home or self-care (01) ==
LOC: JD.ED 18:12
DX: I50.9 Heart failure, unspecified (principal); I25.10 Atherosclerotic heart disease of native coronary artery without angina pectoris; J44.9 Chronic obstructive pulmonary disease, unspecified; I25.2 Old myocardial infarction; Z91.041 Radiographic dye allergy status; Z88.8 Allergy status to other drugs, medicaments and biological substances; Z79.899 Other long term (current) drug therapy; Z79.82 Long term (current) use of aspirin; Z90.710 Acquired absence of both cervix and uterus; Z20.822 Contact with and (suspected) exposure to COVID-19
CPT/HCPCS: 0241U; 36415; 71045; 74176; 80053; 83605; 83690; 83880; 84484; 85007; 85027; 85379; 96361; 96374; 99285; J2405; J7030; 99284

== ENCOUNTER 2022-03-10 03:03 | Emergency (ER) | payer MEDICARE, OTHER ==
[2022-03-10] MEDS ORDERED: HYDROmorphone 0.5 MG/0.5 ML Syringe IVPUSH STA (03:28)
[2022-03-10] MEDS ORDERED: Ondansetron 4 MG/2 ML SDV IVPUSH ONE (03:28)
[2022-03-10] MEDS ORDERED: Sodium Chloride 0.9% 500 ML IV ONE (04:03)
[2022-03-10 04:29] LABS: ESTIMATED GFR 38 mL/min (>60)
[2022-03-10] MEDS ORDERED: Sodium Chloride 0.9% 1,000 ML IV ONE (04:42)
[2022-03-10] MEDS ORDERED: diphenhydrAMINE 50 MG/ML SDV IVPUSH ONE (04:51)
[2022-03-10] MEDS ORDERED: Sodium Chloride 0.9% 10 ML Syringe FLUSH ONE (05:03)
[2022-03-10] MEDS ORDERED: Iopamidol 755 Mg/ML 100 ML Bottle IVPUSH ONE (05:03)
[2022-03-10] MEDS ORDERED: Sodium Chloride 0.9% 100 ML IV SCH (05:15)
[2022-03-10] MEDS ORDERED: Sodium Chloride 0.9% 300 ML IV ONE (06:45)
[2022-03-10] MEDS ORDERED: Norepinephrine 4 MG in Dextrose 5% in Water 246 ML IV SCH ×2 (07:15)
[2022-03-10 09:46] VITALS: BP 132/53; PULSE 95
== END 2022-03-10 10:20 ==
LOC: JD.ED 03:03
DX: A41.9 Sepsis, unspecified organism (principal); R65.21 Severe sepsis with septic shock; I50.9 Heart failure, unspecified; I25.10 Atherosclerotic heart disease of native coronary artery without angina pectoris; D64.89 Other specified anemias; J44.9 Chronic obstructive pulmonary disease, unspecified; I95.89 Other hypotension; I25.2 Old myocardial infarction; Z91.041 Radiographic dye allergy status; Z88.8 Allergy status to other drugs, medicaments and biological substances; Z79.899 Other long term (current) drug therapy; Z79.82 Long term (current) use of aspirin; Z87.891 Personal history of nicotine dependence; Z20.822 Contact with and (suspected) exposure to COVID-19
CPT/HCPCS: 36415; 36556; 71045; 71275; 74177; 80053; 81001; 83605; 83880; 84484; 85025; 85379; 87040; 93005; 94762; 96361; 96365; 96366; 96367; 96375; 99285; J1170; J1200; J1335; J2405; J3370; J3490; J7030; J7050; J7060; Q9967; U0002

== ENCOUNTER 2022-10-17 08:54 | Emergency (ER) | payer MEDICARE, OTHER ==
[2022-10-17] MEDS ORDERED: Ondansetron 4 MG/2 ML SDV IVPUSH ONE (09:38)
[2022-10-17] MEDS ORDERED: Sodium Chloride 0.9% 1,000 ML IV SCH (09:45)
[2022-10-17] MEDS ORDERED: Sodium Chloride 0.9% 10 ML Syringe FLUSH PRN (09:48)
[2022-10-17] MEDS ORDERED: Iopamidol 612 MG/ML 100 ML Bottle IVPUSH ONE (09:48)
[2022-10-17 11:16] LABS: CORONAVIRUS COVID-19 NAA NEGATIVE (NEGATIVE)
[2022-10-17 12:26] VITALS: BP 114/63; PULSE 69
== END 2022-10-17 12:20 | disposition home or self-care (01) ==
LOC: JD.ED 08:54
DX: I50.9 Heart failure, unspecified (principal); K59.00 Constipation, unspecified; I25.10 Atherosclerotic heart disease of native coronary artery without angina pectoris; E78.00 Pure hypercholesterolemia, unspecified; J44.9 Chronic obstructive pulmonary disease, unspecified; K21.9 Gastro-esophageal reflux disease without esophagitis; I25.2 Old myocardial infarction; Z91.041 Radiographic dye allergy status; Z88.8 Allergy status to other drugs, medicaments and biological substances; Z79.899 Other long term (current) drug therapy; Z79.01 Long term (current) use of anticoagulants; Z87.891 Personal history of nicotine dependence; Z20.822 Contact with and (suspected) exposure to COVID-19
CPT/HCPCS: 0241U; 36415; 36600; 71046; 74177; 80053; 82803; 83690; 83880; 84484; 85007; 85027; 85379; 85610; 85730; 87040; 93005; 96361; 96374; 99285; J2405; J3490; J7030; Q9967; 93010; 99284

== ENCOUNTER 2023-01-19 05:41 | Emergency (ER) | payer MEDICARE, OTHER ==
[2023-01-19] MEDS ORDERED: Sodium Chloride 0.9% 10 ML Syringe FLUSH PRN (06:07)
[2023-01-19] MEDS ORDERED: methylPREDNISolone Sodium Succinate 125 MG/2 ML SDV IVPUSH ONE (06:08)
[2023-01-19] MEDS ORDERED: Albuterol/Ipratropium 3.0-0.5 MG/3 ML Neb Soln NEB ONE ×3 (06:08→09:03)
[2023-01-19 06:31] LABS: BASOPHILS ABSOLUTE AUTO 0.02 K/mm3 (0.01-0.08); BASOPHILS PERCENT AUTO 0.4 % (0.1-1.2); EOSINOPHILS ABSOLUTE AUTO 0.04 K/mm3 (0.04-0.36); EOSINOPHILS PERCENT AUTO 0.8 (0.7-5.8); HEMATOCRIT 30.2 % (34.1-44.9); HEMOGLOBIN 9.4 gm/dl (11.2-15.7); IMMATURE GRAN ABSOLUTE AUTO 0.01 K/mm3 (0.00-0.10); IMMATURE GRAN PERCENT AUTO 0.2 % (<=1.0); LYMPHOCYTES ABSOLUTE AUTO 0.55 K/mm3 (1.18-3.74); LYMPHOCYTES PERCENT AUTO 10.6 % (19.3-51.7); MEAN CORPUSCULAR HGB CONC 31.1 g/dl (32.2-35.5); MEAN CORPUSCULAR VOLUME 93.2 fl (79.4-94.8); MEAN PLATELET VOLUME 9.4 fl (9.4-12.3); MONOCYTES ABSOLUTE AUTO 0.53 K/mm3 (0.24-0.36); MONOCYTES PERCENT AUTO 10.2 % (4.7-12.5); NEUTROPHILS ABSOLUTE AUTO 4.05 K/mm3 (1.56-6.13); NEUTROPHILS PERCENT AUTO 77.8 % (34.0-71.1); PLATELET COUNT,PLT 171 K/mm3 (182-369); RED BLOOD CELL COUNT 3.24 M/mm3 (3.98-5.22)
[2023-01-19 06:40] LABS: CORONAVIRUS COVID-19 NAA NEGATIVE (NEGATIVE); INFLUENZA A NAA NEGATIVE (NEGATIVE); RESPIRATORY SYNCYTIAL VIR NAA NEGATIVE (NEGATIVE)
[2023-01-19 06:58] LABS: ALBUMIN 3.6 g/dl (3.4-5.0); BILIRUBIN TOTAL 0.7 mg/dL (0.2-1.0); BUN/CREATININE RATIO 23.6 (14-18); CALCIUM 8.5 mg/dL (8.5-10.1); CREATININE 1.4 mg/dL (0.55-1.02); EST CRCL DRUG DOSING (CG) 23.38 mL/min; PROTEIN TOTAL,TP 7.1 g/dl (6.4-8.2)
[2023-01-19 20:05] VITALS: BP 121/55; PULSE 88
== END 2023-01-19 10:37 | disposition home or self-care (01) ==
LOC: JD.ED 05:41
DX: J98.01 Acute bronchospasm (principal); I25.10 Atherosclerotic heart disease of native coronary artery without angina pectoris; I50.9 Heart failure, unspecified; E78.00 Pure hypercholesterolemia, unspecified; I25.2 Old myocardial infarction; I73.9 Peripheral vascular disease, unspecified; J44.9 Chronic obstructive pulmonary disease, unspecified; K21.9 Gastro-esophageal reflux disease without esophagitis; Z20.822 Contact with and (suspected) exposure to COVID-19; Z79.01 Long term (current) use of anticoagulants; Z79.899 Other long term (current) drug therapy; Z88.8 Allergy status to other drugs, medicaments and biological substances; Z91.041 Radiographic dye allergy status
CPT/HCPCS: 0241U; 36415; 71045; 80053; 83880; 84484; 85025; 93005; 94640; 96374; 99285; J2930; 93010; 99284; J7620-GY

== ENCOUNTER 2023-01-20 09:35 | Inpatient (IN) | payer MEDICARE, OTHER ==
[2023-01-20] MEDS ORDERED: Sodium Chloride 0.9% 10 ML Syringe FLUSH PRN (09:40)
[2023-01-20] MEDS ORDERED: methylPREDNISolone Sod Succ 125 MG in Sodium Chloride 0.9% 250 ML IV ONE (09:42)
[2023-01-20] MEDS ORDERED: methylPREDNISolone Sodium Succinate 125 MG/2 ML SDV IVPUSH ONE (10:00)
[2023-01-20 10:09] LABS: BASOPHILS ABSOLUTE AUTO 0.02 K/mm3 (0.01-0.08); BASOPHILS PERCENT AUTO 0.3 % (0.1-1.2); EOSINOPHILS ABSOLUTE AUTO 0.01 K/mm3 (0.04-0.36); EOSINOPHILS PERCENT AUTO 0.2 (0.7-5.8); HEMATOCRIT 30.8 % (34.1-44.9); HEMOGLOBIN 9.8 gm/dl (11.2-15.7); IMMATURE GRAN ABSOLUTE AUTO 0.01 K/mm3 (0.00-0.10); IMMATURE GRAN PERCENT AUTO 0.2 % (<=1.0); LYMPHOCYTES ABSOLUTE AUTO 0.54 K/mm3 (1.18-3.74); LYMPHOCYTES PERCENT AUTO 8.4 % (19.3-51.7); MEAN CORPUSCULAR HEMOGLOBIN 29.4 pg (25.6-32.2); MEAN CORPUSCULAR HGB CONC 31.8 g/dl (32.2-35.5); MEAN CORPUSCULAR VOLUME 92.5 fl (79.4-94.8); MEAN PLATELET VOLUME 9.2 fl (9.4-12.3); MONOCYTES ABSOLUTE AUTO 0.61 K/mm3 (0.24-0.36); MONOCYTES PERCENT AUTO 9.5 % (4.7-12.5); NEUTROPHILS ABSOLUTE AUTO 5.24 K/mm3 (1.56-6.13); NEUTROPHILS PERCENT AUTO 81.4 % (34.0-71.1); PLATELET COUNT,PLT 183 K/mm3 (182-369); RED BLOOD CELL COUNT 3.33 M/mm3 (3.98-5.22); WHITE BLOOD CELL COUNT,WBC 6.43 K/mm3 (3.98-10.04)
[2023-01-20 10:32] LABS: INR 2.29
[2023-01-20 10:45] LABS: ALBUMIN 3.6 g/dl (3.4-5.0); ANION GAP 8.8 (5-15); BILIRUBIN TOTAL 0.9 mg/dL (0.2-1.0); BUN/CREATININE RATIO 22.9 (14-18); CALCIUM 8.6 mg/dL (8.5-10.1); CREATININE 1.4 mg/dL (0.55-1.02); EST CRCL DRUG DOSING (CG) 23.38 mL/min; POTASSIUM,K 3.8 mEq/L (3.5-5.1); PROTEIN TOTAL,TP 7.3 g/dl (6.4-8.2)
[2023-01-20] MEDS ORDERED: Albuterol/Ipratropium 3.0-0.5 MG/3 ML Neb Soln NEB ONE (11:08)
[2023-01-20] MEDS ORDERED: cefTRIAXone 500 MG Vial IVPUSH ONE (11:15)
[2023-01-20] MEDS ORDERED: cefTRIAXone 1 GM in Sodium Chloride 0.9% 100 ML IV ONE (11:32)
[2023-01-20] MEDS ORDERED: Acetaminophen 325 MG Tab PO PRN (12:37)
[2023-01-20] MEDS ORDERED: Acetaminophen 650 MG Supp RECTAL PRN (12:37)
[2023-01-20] MEDS ORDERED: Ondansetron 4 MG Tab.DIS PO PRN (14:34)
[2023-01-20] MEDS ORDERED: Carboxymethylcellulose Sodium 1% Ophth Gel 15 ML Bottle EYEBOTH PRN (14:34)
[2023-01-20] MEDS ORDERED: Albuterol 0.042% 1.25 MG/3 ML Neb Soln INH PRN (14:34)
[2023-01-20] MEDS ORDERED: Non-Formulary Medication 1 Each (Acetaminophen 500 MG Tablet) PO PRN (14:34)
[2023-01-20] MEDS ORDERED: Non-Formulary Medication 1 Each (Levalbuterol Tartrate [Xopenex Hfa] 15 GM Inhaler) INH PRN (14:34)
[2023-01-20] MEDS ORDERED: Albuterol 6.7 GM Inhaler INH PRN (14:34)
[2023-01-20] MEDS ORDERED: Warfarin 4 MG Tab PO SCH (14:45)
[2023-01-20] MEDS ORDERED: DIFLUPREDNATE EYEBOTH SCH (15:00)
[2023-01-20 15:53] LABS: INR 2.32; PROTHROMBIN TIME 23.3 SECONDS (9.7-12.0)
[2023-01-20] MEDS: Albuterol/Ipratropium 3.0-0.5 MG/3 ML Neb Soln NEB PRN ×2 (16:05→21:01)
[2023-01-20] MEDS: Polyethylene Glycol 3350 Powder 17 GM Packet PO PRN (16:48)
[2023-01-20] MEDS: predniSONE 20 MG Tab PO SCH (16:49)
[2023-01-20] MEDS: Pantoprazole 40 MG Tab.CR PO SCH (16:49)
[2023-01-20] MEDS ORDERED: Bumetanide 1 MG Tab PO SCH (18:00)
[2023-01-20] MEDS: Docusate Sodium 100 MG Cap PO SCH (20:50)
[2023-01-20] MEDS: Sertraline 50 MG Tab PO SCH (20:51)
[2023-01-20] MEDS: Carvedilol 6.25 MG Tab PO SCH (20:51)
[2023-01-20] MEDS: Gabapentin 100 MG Cap PO SCH (20:52)
[2023-01-21 06:24] LABS: BASOPHILS ABSOLUTE AUTO 0.01 K/mm3 (0.01-0.08); BASOPHILS PERCENT AUTO 0.2 % (0.1-1.2); EOSINOPHILS PERCENT AUTO 0 (0.7-5.8); HEMATOCRIT 29.6 % (34.1-44.9); HEMOGLOBIN 9.2 gm/dl (11.2-15.7); LYMPHOCYTES ABSOLUTE AUTO 0.54 K/mm3 (1.18-3.74); LYMPHOCYTES PERCENT AUTO 12.5 % (19.3-51.7); MEAN CORPUSCULAR HEMOGLOBIN 28.9 pg (25.6-32.2); MEAN CORPUSCULAR HGB CONC 31.1 g/dl (32.2-35.5); MEAN CORPUSCULAR VOLUME 93.1 fl (79.4-94.8); MEAN PLATELET VOLUME 10.1 fl (9.4-12.3); MONOCYTES ABSOLUTE AUTO 0.48 K/mm3 (0.24-0.36); MONOCYTES PERCENT AUTO 11.1 % (4.7-12.5); NEUTROPHILS PERCENT AUTO 76.2 % (34.0-71.1); PLATELET COUNT,PLT 166 K/mm3 (182-369); RED BLOOD CELL COUNT 3.18 M/mm3 (3.98-5.22); WHITE BLOOD CELL COUNT,WBC 4.33 K/mm3 (3.98-10.04)
[2023-01-21 06:31] LABS: INR 2.7; PROTHROMBIN TIME 26.8 SECONDS (9.7-12.0)
[2023-01-21 06:54] LABS: A/G RATIO 0.9 (1-2); ALBUMIN 3.2 g/dl (3.4-5.0); ANION GAP 11.7 (5-15); BILIRUBIN TOTAL 0.8 mg/dL (0.2-1.0); BUN/CREATININE RATIO 29.1 (14-18); CREATININE 1.1 mg/dL (0.55-1.02); EST CRCL DRUG DOSING (CG) 29.75 mL/min; MAGNESIUM 1.9 mg/dL (1.8-2.4); POTASSIUM,K 3.7 mEq/L (3.5-5.1); PROTEIN TOTAL,TP 6.9 g/dl (6.4-8.2)
[2023-01-21] MEDS: Albuterol/Ipratropium 3.0-0.5 MG/3 ML Neb Soln NEB PRN (06:55)
[2023-01-21] MEDS ORDERED: Albuterol 0.083% 2.5 MG/3 ML Neb Soln NEB PRN (08:00)
[2023-01-21] MEDS: Carvedilol 6.25 MG Tab PO SCH ×2 (08:57→20:42)
[2023-01-21] MEDS ORDERED: Sertraline 50 MG Tab PO SCH (09:00)
[2023-01-21] MEDS ORDERED: Losartan 50 MG Tab PO SCH (09:00)
[2023-01-21] MEDS ORDERED: Potassium Chloride 20 MEQ Tab.ER PO SCH (09:00)
[2023-01-21] MEDS ORDERED: Gabapentin 100 MG Cap PO SCH (09:00)
[2023-01-21] MEDS: Pantoprazole 40 MG Tab.CR PO SCH ×2 (09:00→15:44)
[2023-01-21] MEDS ORDERED: Bumetanide 1 MG Tab PO SCH (09:00)
[2023-01-21] MEDS: Bumetanide 1 MG Tab PO SCH ×2 (09:03→15:44)
[2023-01-21] MEDS: Albuterol/Ipratropium 3.0-0.5 MG/3 ML Neb Soln NEB SCH ×4 (09:38→21:23)
[2023-01-21] MEDS: Doxycycline Monohydrate 100 MG Cap PO SCH ×2 (15:49→20:42)
[2023-01-21] MEDS: Rosuvastatin 10 MG Tab PO SCH (15:49)
[2023-01-21] MEDS: predniSONE 20 MG Tab PO SCH (15:50)
[2023-01-21] MEDS: Spironolactone 25 MG Tab PO SCH (15:50)
[2023-01-21] MEDS: Docusate Sodium 100 MG Cap PO SCH ×2 (15:52→20:42)
[2023-01-21] MEDS: Polyethylene Glycol 3350 Powder 17 GM Packet PO PRN (15:52)
[2023-01-21] MEDS: Gabapentin 100 MG Cap PO SCH (15:59)
[2023-01-21] MEDS: Sertraline 50 MG Tab PO SCH ×2 (19:09→20:42)
[2023-01-22] MEDS: Albuterol/Ipratropium 3.0-0.5 MG/3 ML Neb Soln NEB SCH ×6 (02:08→21:14)
[2023-01-22 05:24] LABS: HEMATOCRIT 30.3 % (34.1-44.9); HEMOGLOBIN 9.6 gm/dl (11.2-15.7); MEAN CORPUSCULAR HEMOGLOBIN 29.3 pg (25.6-32.2); MEAN CORPUSCULAR HGB CONC 31.7 g/dl (32.2-35.5); MEAN CORPUSCULAR VOLUME 92.4 fl (79.4-94.8); PLATELET COUNT,PLT 193 K/mm3 (182-369); RED BLOOD CELL COUNT 3.28 M/mm3 (3.98-5.22); WHITE BLOOD CELL COUNT,WBC 5.52 K/mm3 (3.98-10.04)
[2023-01-22] MEDS: Bumetanide 1 MG Tab PO SCH ×2 (05:39→13:30)
[2023-01-22] MEDS: Pantoprazole 40 MG Tab.CR PO SCH ×2 (05:39→19:25)
[2023-01-22 05:52] LABS: A/G RATIO 0.9 (1-2); ALBUMIN 3.4 g/dl (3.4-5.0); ANION GAP 13.8 (5-15); BILIRUBIN TOTAL 1.1 mg/dL (0.2-1.0); CALCIUM 8.2 mg/dL (8.5-10.1); CREATININE 1.2 mg/dL (0.55-1.02); EST CRCL DRUG DOSING (CG) 27.27 mL/min; MAGNESIUM 1.8 mg/dL (1.8-2.4); POTASSIUM,K 3.8 mEq/L (3.5-5.1); PROTEIN TOTAL,TP 7.3 g/dl (6.4-8.2)
[2023-01-22 06:12] LABS: INR 2.23; PROTHROMBIN TIME 22.5 SECONDS (9.7-12.0)
[2023-01-22] MEDS: Polyethylene Glycol 3350 Powder 17 GM Packet PO PRN (09:34)
[2023-01-22] MEDS: Rosuvastatin 10 MG Tab PO SCH (09:36)
[2023-01-22] MEDS: Spironolactone 25 MG Tab PO SCH (09:37)
[2023-01-22] MEDS: Gabapentin 100 MG Cap PO SCH ×2 (09:37→11:40)
[2023-01-22] MEDS: predniSONE 20 MG Tab PO SCH (09:38)
[2023-01-22] MEDS: Docusate Sodium 100 MG Cap PO SCH ×2 (09:38→20:06)
[2023-01-22] MEDS: Doxycycline Monohydrate 100 MG Cap PO SCH ×2 (09:38→20:07)
[2023-01-22] MEDS: Carvedilol 6.25 MG Tab PO SCH ×2 (09:39→20:06)
[2023-01-22] MEDS: Potassium Chloride 20 MEQ Tab.ER PO SCH (09:40)
[2023-01-22] MEDS ORDERED: Warfarin 4 MG Tab PO SCH (18:00)
[2023-01-22] MEDS: Sertraline 50 MG Tab PO SCH (20:06)
[2023-01-22] MEDS ORDERED: Gabapentin 100 MG Cap PO SCH (21:00)
[2023-01-23] MEDS: Albuterol/Ipratropium 3.0-0.5 MG/3 ML Neb Soln NEB SCH ×4 (02:47→13:37)
[2023-01-23] MEDS: Bumetanide 1 MG Tab PO SCH ×2 (05:18→14:09)
[2023-01-23] MEDS: Pantoprazole 40 MG Tab.CR PO SCH (05:18)
[2023-01-23 06:23] LABS: INR 2.17; PROTHROMBIN TIME 21.9 SECONDS (9.7-12.0)
[2023-01-23 07:19] LABS: A/G RATIO 0.9 (1-2); ALBUMIN 3.5 g/dl (3.4-5.0); ANION GAP 11.8 (5-15); BILIRUBIN TOTAL 0.8 mg/dL (0.2-1.0); BUN/CREATININE RATIO 35.4 (14-18); CALCIUM 8.6 mg/dL (8.5-10.1); CREATININE 1.3 mg/dL (0.55-1.02); EST CRCL DRUG DOSING (CG) 25.18 mL/min; POTASSIUM,K 3.8 mEq/L (3.5-5.1); PROTEIN TOTAL,TP 7.5 g/dl (6.4-8.2)
[2023-01-23] MEDS: Rosuvastatin 10 MG Tab PO SCH (09:35)
[2023-01-23] MEDS: Potassium Chloride 20 MEQ Tab.ER PO SCH (09:35)
[2023-01-23] MEDS: Doxycycline Monohydrate 100 MG Cap PO SCH (09:35)
[2023-01-23] MEDS: predniSONE 20 MG Tab PO SCH (09:36)
[2023-01-23] MEDS: Spironolactone 25 MG Tab PO SCH (09:36)
[2023-01-23] MEDS: Carvedilol 6.25 MG Tab PO SCH (09:37)
[2023-01-23] MEDS: Docusate Sodium 100 MG Cap PO SCH (09:37)
[2023-01-23 13:50] VITALS: BP 117/61; PULSE 75
== END 2023-01-23 14:13 | disposition home or self-care (01) | DRG 189 ==
LOC: JD.ED 09:35 → JD.ICU 12:33
PROVIDERS: ADMIT Internal Medicine; ATTEND Internal Medicine
DX: J96.01 Acute respiratory failure with hypoxia (principal); I50.23 Acute on chronic systolic (congestive) heart failure; J44.1 Chronic obstructive pulmonary disease with (acute) exacerbation; J98.01 Acute bronchospasm; N18.32 Chronic kidney disease, stage 3b; I25.10 Atherosclerotic heart disease of native coronary artery without angina pectoris; E78.00 Pure hypercholesterolemia, unspecified; K21.9 Gastro-esophageal reflux disease without esophagitis; E55.9 Vitamin D deficiency, unspecified; F32.A Depression, unspecified; D63.1 Anemia in chronic kidney disease; R32 Unspecified urinary incontinence; M81.0 Age-related osteoporosis without current pathological fracture; M19.90 Unspecified osteoarthritis, unspecified site; H54.7 Unspecified visual loss; Z85.3 Personal history of malignant neoplasm of breast; Z91.041 Radiographic dye allergy status; Z88.8 Allergy status to other drugs, medicaments and biological substances; Z79.01 Long term (current) use of anticoagulants; Z79.899 Other long term (current) drug therapy; I25.2 Old myocardial infarction; Z86.711 Personal history of pulmonary embolism; Z95.810 Presence of automatic (implantable) cardiac defibrillator; Z90.710 Acquired absence of both cervix and uterus; Z87.891 Personal history of nicotine dependence
CPT/HCPCS: 36415; 71045; 80053; 83880; 85025; 85610; 94640; 96365; 96375; 99285; J0696; J2930; J3490 ×2; 82728; 83735; 85027; 93005; 93307; 94667; 94668; 94761; 94762; 97110-GP; 97116-GP; 97162-GP; 97165-GO; 99222; 99284; A9270-GY; J3475; J7512; J7620-GY

== ENCOUNTER 2023-06-23 14:11 | Observation (INO) | payer MEDICARE, OTHER ==
[2023-06-23] MEDS ORDERED: Sodium Chloride 0.9% 10 ML Syringe FLUSH PRN (14:24)
[2023-06-23 15:05] LABS: BASOPHILS PERCENT AUTO 0.3 % (0.0-1.0); EOSINOPHILS ABSOLUTE AUTO 0.1 K/mm3 (0.0-0.4); EOSINOPHILS PERCENT AUTO 0.8 % (0.0-6.0); HEMATOCRIT 29.3 % (37.0-47.0); HEMOGLOBIN 9.6 gm/dl (12.0-16.0); IMMATURE GRAN ABSOLUTE AUTO 0.02 K/mm3 (0.00-0.05); IMMATURE GRAN PERCENT AUTO 0.3 % (0.0-0.4); LYMPHOCYTES ABSOLUTE AUTO 0.8 K/mm3 (1.0-4.8); LYMPHOCYTES PERCENT AUTO 13.3 % (24.0-44.0); MEAN CORPUSCULAR HEMOGLOBIN 29.5 pg (28.0-32.0); MEAN CORPUSCULAR HGB CONC 32.8 g/dl (32.0-36.0); MEAN CORPUSCULAR VOLUME 90.2 fl (83.0-99.0); MEAN PLATELET VOLUME 9.8 fl (9.4-12.3); MONOCYTES ABSOLUTE AUTO 0.6 K/mm3 (0.0-0.8); NEUTROPHILS ABSOLUTE AUTO 4.6 K/mm3 (1.8-7.7); NEUTROPHILS PERCENT AUTO 75.3 % (41.0-71.0); PLATELET COUNT,PLT 168 K/mm3 (150-400); RED BLOOD CELL COUNT 3.25 M/mm3 (4.10-5.30)
[2023-06-23 15:23] LABS: INR 2.14; PROTHROMBIN TIME 21.6 SECONDS (9.7-12.0)
[2023-06-23 15:24] LABS: PTT,PARTIAL THROMBOPLSTIN TIME 37.3 SECONDS (21.7-31.4)
[2023-06-23 15:25] LABS: ALANINE AMINOTRANSFERASE,ALT 16 U/L (14-59); ALBUMIN 3.5 g/dl (3.4-5.0); ALKALINE PHOSPHATASE 53 U/L (46-116); ANION GAP 14.3 (5-15); ASPARTATE AMNIOTRANSFERASE,AST 20 U/L (15-37); BILIRUBIN TOTAL 0.8 mg/dL (0.2-1.0); BLOOD UREA NITROGEN,BUN 49 mg/dL (7-18); C-REACTIVE PROTEIN <0.2 mg/dL (<1.0); CALCIUM 8.8 mg/dL (8.5-10.1); CARBON DIOXIDE,CO2 24 mEq/L (21-32); CHLORIDE,CL 105 mEq/L (98-107); CREATININE 1.4 mg/dL (0.55-1.02); ESTIMATED GFR 38 mL/min (>60); GLUCOSE RANDOM 104 mg/dL (70-99); LIPASE 27 U/L (16-77); MAGNESIUM 1.8 mg/dL (1.8-2.4); POTASSIUM,K 3.3 mEq/L (3.5-5.1); SODIUM,NA 140 mEq/L (136-145)
[2023-06-23] MEDS ORDERED: Sodium Chloride 0.9% 500 ML IV ONE (15:38)
[2023-06-23 15:53] LABS: APPEARANCE,URINE CLEAR (Clear); BILIRUBIN,URINE NEGATIVE (Negative); COLOR,URINE YELLOW (Yellow); GLUCOSE,URINE NEGATIVE (Negative); KETONES,URINE NEGATIVE (Negative); LEUKOCYTE ESTERASE,URINE NEGATIVE (Negative); NITRITE,URINE NEGATIVE (Negative); OCCULT BLOOD,URINE NEGATIVE (Negative); PH,URINE 6.5 (5.0-8.0); PROTEIN,URINE NEGATIVE (Negative); UROBILINOGEN,URINE 0.2 (0.2-1.0)
[2023-06-23] MEDS ORDERED: Iopamidol 755 Mg/ML 100 ML Bottle IVPUSH ONE (15:53)
[2023-06-23] MEDS ORDERED: Sodium Chloride 0.9% 100 ML IV SCH (16:00)
[2023-06-23 16:06] LABS: BACTERIA,URINE RARE /hpf (FEW); MUCUS,URINE RARE /hpf (FEW); RBC,URINE 0-5 /hpf (0-5); SQUAMOUS EPITHELIAL CELLS,UR 0-5 /hpf (0-5); WBC,URINE 0-5 /hpf (0-5)
[2023-06-23 16:48] LABS: CORONAVIRUS COVID-19 NAA NEGATIVE (NEGATIVE); INFLUENZA A NAA NEGATIVE (NEGATIVE); RESPIRATORY SYNCYTIAL VIR NAA NEGATIVE (NEGATIVE)
[2023-06-23] MEDS ORDERED: Ondansetron 4 MG/2 ML SDV IV PRN (17:36)
[2023-06-23] MEDS ORDERED: Docusate Sodium 100 MG Cap PO PRN (17:36)
[2023-06-23] MEDS ORDERED: Ondansetron 4 MG Tab.DIS PO PRN (17:36)
[2023-06-23] MEDS ORDERED: Acetaminophen 325 MG Tab PO PRN (17:36)
[2023-06-24] MEDS ORDERED: Albuterol 0.042% 1.25 MG/3 ML Neb Soln NEB PRN (08:23)
[2023-06-24] MEDS ORDERED: Carboxymethylcellulose Sodium 1% Ophth Gel 15 ML Bottle EYEBOTH PRN (08:23)
[2023-06-24] MEDS ORDERED: Polyethylene Glycol 3350 Powder 17 GM Packet PO PRN (08:54)
[2023-06-24] MEDS ORDERED: Docusate Sodium 100 MG Cap PO SCH (09:00)
[2023-06-24] MEDS ORDERED: DIFLUPREDNATE EYEBOTH SCH (09:00)
[2023-06-24 09:26] LABS: INR 2.39
[2023-06-24 09:58] LABS: ANION GAP 16.4 (5-15); BUN/CREATININE RATIO 30.8 (14-18); CALCIUM 9.3 mg/dL (8.5-10.1); CREATININE 1.2 mg/dL (0.55-1.02); EST CRCL DRUG DOSING (CG) 27.27 mL/min; MAGNESIUM 2.1 mg/dL (1.8-2.4); POTASSIUM,K 3.4 mEq/L (3.5-5.1)
[2023-06-24] MEDS ORDERED: Metolazone 2.5 MG Tab PO SCH (10:00)
[2023-06-24] MEDS ORDERED: SPIRONOLACTONE 25 MG PO SCH (10:00)
[2023-06-24] MEDS ORDERED: LOSARTAN 25 MG PO SCH (10:00)
[2023-06-24] MEDS ORDERED: POTASSIUM CHLORIDE 10 MEQ PO SCH (10:00)
[2023-06-24] MEDS ORDERED: CARVEDILOL 12.5 MG PO SCH (10:00)
[2023-06-24] MEDS ORDERED: ROSUVASTATIN 20 MG PO SCH (10:00)
[2023-06-24] MEDS ORDERED: Potassium Chloride 20 MEQ Tab.ER PO SCH (10:30)
[2023-06-24] MEDS ORDERED: BUMETANIDE 2 MG PO SCH (12:00)
[2023-06-24 12:31] VITALS: BP 110/64; PULSE 71
== END 2023-06-24 13:27 | disposition home or self-care (01) ==
LOC: JD.ED 14:11 → JD.MS 17:36
PROVIDERS: ADMIT Hospitalist; ATTEND Hospitalist
DX: R53.1 Weakness (principal); R41.0 Disorientation, unspecified; I25.10 Atherosclerotic heart disease of native coronary artery without angina pectoris; I13.0 Hypertensive heart and chronic kidney disease with heart failure and stage 1 through stage 4 chronic kidney disease, or unspecified chronic kidney disease; I50.23 Acute on chronic systolic (congestive) heart failure; N18.32 Chronic kidney disease, stage 3b; I25.2 Old myocardial infarction; E78.00 Pure hypercholesterolemia, unspecified; I73.9 Peripheral vascular disease, unspecified; K21.9 Gastro-esophageal reflux disease without esophagitis; F32.A Depression, unspecified; Z20.822 Contact with and (suspected) exposure to COVID-19; Z86.711 Personal history of pulmonary embolism; Z79.01 Long term (current) use of anticoagulants; Z79.899 Other long term (current) drug therapy; Z91.041 Radiographic dye allergy status
CPT/HCPCS: 0241U; 36415; 51701; 70450; 70496; 70498; 71045; 72131; 72192; 80048; 80053; 81001; 83605; 83690; 83735; 84443; 84484; 85025; 85610; 85730; 86140; 93005; 96361; 96374; 97116; 97162; 99285; A9270; C1758; G0378; J2405; J3490; J7030; Q9967; 93010; 96360

== ENCOUNTER 2024-06-18 11:22 | Emergency (ER) | payer MEDICARE, OTHER ==
[2024-06-18 12:30] LABS: BASOPHILS ABSOLUTE AUTO 0.1 K/mm3 (0.0-0.2); BASOPHILS PERCENT AUTO 0.7 % (0.0-1.0); EOSINOPHILS PERCENT AUTO 0.6 % (0.0-6.0); HEMATOCRIT 28.7 % (37.0-47.0); HEMOGLOBIN 10.1 gm/dl (12.0-16.0); IMMATURE GRAN ABSOLUTE AUTO 0.02 K/mm3 (0.00-0.05); IMMATURE GRAN PERCENT AUTO 0.3 % (0.0-0.4); LYMPHOCYTES ABSOLUTE AUTO 0.8 K/mm3 (1.0-4.8); LYMPHOCYTES PERCENT AUTO 11.1 % (24.0-44.0); MEAN CORPUSCULAR HEMOGLOBIN 29.8 pg (28.0-32.0); MEAN CORPUSCULAR HGB CONC 35.2 g/dl (32.0-36.0); MONOCYTES ABSOLUTE AUTO 0.7 K/mm3 (0.0-0.8); MONOCYTES PERCENT AUTO 9.7 % (0.0-8.0); NEUTROPHILS ABSOLUTE AUTO 5.2 K/mm3 (1.8-7.7); NEUTROPHILS PERCENT AUTO 77.6 % (41.0-71.0); PLATELET COUNT,PLT 216 K/mm3 (150-400); RED BLOOD CELL COUNT 3.39 M/mm3 (4.10-5.30); WHITE BLOOD CELL COUNT,WBC 6.73 K/mm3 (3.9-11.3)
[2024-06-18 12:39] LABS: MEAN CORPUSCULAR VOLUME 84.7 fl (83.0-99.0)
[2024-06-18 12:55] LABS: LACTIC ACID 1.3 mmol/L (0.4-2.0)
[2024-06-18 13:01] LABS: A/G RATIO 0.8 (1-2); ALBUMIN 3.2 g/dl (3.4-5.0); ANION GAP 14.3 (5-15); BILIRUBIN TOTAL 1.7 mg/dL (0.2-1.0); BUN/CREATININE RATIO 16.4 (14-18); CALCIUM 8.7 mg/dL (8.5-10.1); CREATININE 1.1 mg/dL (0.55-1.02); EST CRCL DRUG DOSING (CG) 30.65 mL/min; MAGNESIUM 1.5 mg/dL (1.8-2.4); POTASSIUM,K 3.3 mEq/L (3.5-5.1); TSH 2.606 uIU/mL (0.358-3.74)
[2024-06-18] MEDS: Sodium Chloride 0.9% 10 ML Syringe FLUSH PRN (13:17)
[2024-06-18] MEDS: Sodium Chloride 0.9% 500 ML IV ONE (13:17)
[2024-06-18 13:29] LABS: CORONAVIRUS COVID-19 NAA NEGATIVE (NEGATIVE); INFLUENZA A NAA NEGATIVE (NEGATIVE); RESPIRATORY SYNCYTIAL VIR NAA NEGATIVE (NEGATIVE)
[2024-06-18] MEDS: Acetaminophen 325 MG Tab PO ONE (14:37)
[2024-06-18 15:19] LABS: INR 1.43; PROTHROMBIN TIME 14.8 SECONDS (9.7-12.0)
[2024-06-18] MEDS: Potassium Chloride 20 MEQ Tab.ER PO ONE (16:33)
[2024-06-18] MEDS: Magnesium Oxide 400 MG Tab PO ONE (16:33)
[2024-06-18 17:19] VITALS: BP 141/76; PULSE 82
== END 2024-06-18 16:45 | disposition home or self-care (01) ==
LOC: JD.ED 11:22
DX: N18.32 Chronic kidney disease, stage 3b (principal); D63.1 Anemia in chronic kidney disease; E87.6 Hypokalemia; R79.89 Other specified abnormal findings of blood chemistry; R05.9 Cough, unspecified; I13.0 Hypertensive heart and chronic kidney disease with heart failure and stage 1 through stage 4 chronic kidney disease, or unspecified chronic kidney disease; I50.9 Heart failure, unspecified; I25.10 Atherosclerotic heart disease of native coronary artery without angina pectoris; I25.2 Old myocardial infarction; K21.9 Gastro-esophageal reflux disease without esophagitis; Z90.710 Acquired absence of both cervix and uterus; Z88.8 Allergy status to other drugs, medicaments and biological substances; Z91.041 Radiographic dye allergy status; Z79.51 Long term (current) use of inhaled steroids; Z79.01 Long term (current) use of anticoagulants; Z79.899 Other long term (current) drug therapy
CPT/HCPCS: 0241U; 36415; 70450; 71045; 80053; 82947; 83605; 83690; 83735; 83880; 84443; 84484; 85025; 85610; 93005; 96360; 99284; A9270; C1758; J7030; 93010

== ENCOUNTER 2024-06-19 19:29 | Inpatient (IN) | payer MEDICARE, OTHER ==
[2024-06-19] MEDS ORDERED: Sodium Chloride 0.9% 10 ML Syringe FLUSH PRN (19:54)
[2024-06-19 20:03] LABS: BASOPHILS PERCENT AUTO 0.4 % (0.0-1.0); EOSINOPHILS ABSOLUTE AUTO 0.1 K/mm3 (0.0-0.4); EOSINOPHILS PERCENT AUTO 0.7 % (0.0-6.0); HEMOGLOBIN 10.4 gm/dl (12.0-16.0); IMMATURE GRAN ABSOLUTE AUTO 0.03 K/mm3 (0.00-0.05); IMMATURE GRAN PERCENT AUTO 0.4 % (0.0-0.4); LYMPHOCYTES PERCENT AUTO 13.6 % (24.0-44.0); MEAN CORPUSCULAR HEMOGLOBIN 29.6 pg (28.0-32.0); MEAN CORPUSCULAR HGB CONC 32.5 g/dl (32.0-36.0); MEAN PLATELET VOLUME 9.2 fl (9.4-12.3); MONOCYTES ABSOLUTE AUTO 0.7 K/mm3 (0.0-0.8); MONOCYTES PERCENT AUTO 9.9 % (0.0-8.0); NEUTROPHILS ABSOLUTE AUTO 5.3 K/mm3 (1.8-7.7); PLATELET COUNT,PLT 213 K/mm3 (150-400); RED BLOOD CELL COUNT 3.51 M/mm3 (4.10-5.30); WHITE BLOOD CELL COUNT,WBC 7.06 K/mm3 (3.9-11.3)
[2024-06-19 20:04] LABS: MEAN CORPUSCULAR VOLUME 91.2 fl (83.0-99.0)
[2024-06-19] MEDS: Furosemide 40 MG/4 ML VIAL IVPUSH ONE (20:10)
[2024-06-19 20:23] LABS: A/G RATIO 0.8 (1-2); ALBUMIN 3.3 g/dl (3.4-5.0); BILIRUBIN TOTAL 1.9 mg/dL (0.2-1.0); POTASSIUM,K 3.7 mEq/L (3.5-5.1); PROTEIN TOTAL,TP 7.3 g/dl (6.4-8.2)
[2024-06-19 21:01] LABS: ANION GAP 15.7 (5-15); BUN/CREATININE RATIO 12.1 (14-18); C-REACTIVE PROTEIN 4.32 mg/dL (<0.30); CALCIUM 8.8 mg/dL (8.5-10.1); CREATININE 1.4 mg/dL (0.55-1.02); EST CRCL DRUG DOSING (CG) 25.19 mL/min
[2024-06-19 22:18] LABS: APPEARANCE,URINE CLEAR (Clear); BILIRUBIN,URINE NEGATIVE (Negative); COLOR,URINE YELLOW (Yellow); GLUCOSE,URINE NEGATIVE (Negative); KETONES,URINE NEGATIVE (Negative); LEUKOCYTE ESTERASE,URINE TRACE (Negative); NITRITE,URINE NEGATIVE (Negative); OCCULT BLOOD,URINE NEGATIVE (Negative); PH,URINE 6.5 (5.0-8.0); PROTEIN,URINE TRACE (Negative)
[2024-06-19 22:36] LABS: BACTERIA,URINE FEW /hpf (FEW); MUCUS,URINE FEW /hpf (FEW); RBC,URINE 0-5 /hpf (0-5)
[2024-06-20] MEDS: Furosemide 40 MG/4 ML VIAL IVPUSH ONE (01:27)
[2024-06-20 05:28] LABS: BASOPHILS PERCENT AUTO 0.4 % (0.0-1.0); EOSINOPHILS ABSOLUTE AUTO 0.1 K/mm3 (0.0-0.4); EOSINOPHILS PERCENT AUTO 0.8 % (0.0-6.0); HEMOGLOBIN 9.1 gm/dl (12.0-16.0); IMMATURE GRAN ABSOLUTE AUTO 0.03 K/mm3 (0.00-0.05); IMMATURE GRAN PERCENT AUTO 0.4 % (0.0-0.4); LYMPHOCYTES ABSOLUTE AUTO 0.8 K/mm3 (1.0-4.8); LYMPHOCYTES PERCENT AUTO 10.1 % (24.0-44.0); MEAN CORPUSCULAR HEMOGLOBIN 30.1 pg (28.0-32.0); MEAN CORPUSCULAR HGB CONC 32.5 g/dl (32.0-36.0); MEAN CORPUSCULAR VOLUME 92.7 fl (83.0-99.0); MEAN PLATELET VOLUME 9.6 fl (9.4-12.3); MONOCYTES ABSOLUTE AUTO 0.6 K/mm3 (0.0-0.8); MONOCYTES PERCENT AUTO 8.1 % (0.0-8.0); NEUTROPHILS ABSOLUTE AUTO 6.2 K/mm3 (1.8-7.7); NEUTROPHILS PERCENT AUTO 80.2 % (41.0-71.0); PLATELET COUNT,PLT 188 K/mm3 (150-400); RED BLOOD CELL COUNT 3.02 M/mm3 (4.10-5.30); WHITE BLOOD CELL COUNT,WBC 7.75 K/mm3 (3.9-11.3)
[2024-06-20 05:36] LABS: A/G RATIO 0.8 (1-2); ALBUMIN 2.8 g/dl (3.4-5.0); BILIRUBIN TOTAL 1.2 mg/dL (0.2-1.0); BUN/CREATININE RATIO 15.5 (14-18); CALCIUM 8.2 mg/dL (8.5-10.1); CREATININE 1.1 mg/dL (0.55-1.02); EST CRCL DRUG DOSING (CG) 27.83 mL/min; PROTEIN TOTAL,TP 6.3 g/dl (6.4-8.2)
[2024-06-20 05:45] LABS: ANION GAP 11.2 (5-15); POTASSIUM,K 3.2 mEq/L (3.5-5.1)
[2024-06-20] MEDS ORDERED: Acetaminophen 325 MG Tab PO PRN (07:47)
[2024-06-20 08:16] LABS: INR 1.72; PROTHROMBIN TIME 17.6 SECONDS (9.7-12.0)
[2024-06-20] MEDS: Carvedilol 12.5 MG Tab PO SCH (08:43)
[2024-06-20] MEDS: Rosuvastatin 10 MG Tab PO SCH (08:43)
[2024-06-20] MEDS: Gabapentin 100 MG Cap PO SCH (08:44)
[2024-06-20] MEDS: Potassium Chloride 20 MEQ Tab.ER PO SCH (08:44)
[2024-06-20] MEDS: Docusate Sodium 100 MG Cap PO SCH (08:44)
[2024-06-20] MEDS: Sertraline 50 MG Tab PO SCH (08:44)
[2024-06-20] MEDS: Spironolactone 25 MG Tab PO SCH (08:44)
[2024-06-20] MEDS: Bumetanide 1 MG Tab PO SCH (08:44)
[2024-06-20] MEDS ORDERED: Potassium Chloride 20 MEQ Tab.ER PO ONE (09:00)
[2024-06-20] MEDS: Formoterol/Mometasone 100-5 MCG 8.8 GM Inhaler IH SCH (09:17)
[2024-06-20] MEDS: Pantoprazole 40 MG Tab.CR PO SCH (16:22)
[2024-06-20] MEDS ORDERED: cefTRIAXone 1 GM in Sodium Chloride 0.9% 50 ML IV SCH (17:00)
[2024-06-20] MEDS: cefTRIAXone 1 GM Vial IVPUSH SCH (17:39)
[2024-06-20] MEDS: Warfarin 4 MG Tab PO SCH (17:40)
[2024-06-21 05:44] LABS: BASOPHILS PERCENT AUTO 0.5 % (0.0-1.0); EOSINOPHILS ABSOLUTE AUTO 0.1 K/mm3 (0.0-0.4); EOSINOPHILS PERCENT AUTO 1.7 % (0.0-6.0); HEMATOCRIT 27.9 % (37.0-47.0); IMMATURE GRAN ABSOLUTE AUTO 0.01 K/mm3 (0.00-0.05); IMMATURE GRAN PERCENT AUTO 0.2 % (0.0-0.4); LYMPHOCYTES ABSOLUTE AUTO 0.9 K/mm3 (1.0-4.8); LYMPHOCYTES PERCENT AUTO 15.8 % (24.0-44.0); MEAN CORPUSCULAR HEMOGLOBIN 29.4 pg (28.0-32.0); MEAN CORPUSCULAR HGB CONC 32.3 g/dl (32.0-36.0); MEAN CORPUSCULAR VOLUME 91.2 fl (83.0-99.0); MEAN PLATELET VOLUME 9.6 fl (9.4-12.3); MONOCYTES ABSOLUTE AUTO 0.5 K/mm3 (0.0-0.8); NEUTROPHILS ABSOLUTE AUTO 4.2 K/mm3 (1.8-7.7); NEUTROPHILS PERCENT AUTO 72.8 % (41.0-71.0); PLATELET COUNT,PLT 192 K/mm3 (150-400); RED BLOOD CELL COUNT 3.06 M/mm3 (4.10-5.30); WHITE BLOOD CELL COUNT,WBC 5.81 K/mm3 (3.9-11.3)
[2024-06-21 06:04] LABS: A/G RATIO 0.8 (1-2); ALBUMIN 2.8 g/dl (3.4-5.0); BILIRUBIN TOTAL 0.9 mg/dL (0.2-1.0); CALCIUM 8.4 mg/dL (8.5-10.1); CREATININE 1.2 mg/dL (0.55-1.02); EST CRCL DRUG DOSING (CG) 25.51 mL/min; PROTEIN TOTAL,TP 6.3 g/dl (6.4-8.2)
[2024-06-21 06:19] LABS: ANION GAP 12.8 (5-15)
[2024-06-21 06:27] LABS: POTASSIUM,K 3.8 mEq/L (3.5-5.1)
[2024-06-21] MEDS: Losartan 25 MG Tab PO SCH (08:14)
[2024-06-21] MEDS: Warfarin 4 MG Tab PO SCH (17:45)
[2024-06-21] MEDS: Polyethylene Glycol 3350 Powder 17 GM Packet PO SCH (22:18)
[2024-06-22 05:48] LABS: BASOPHILS PERCENT AUTO 0.6 % (0.0-1.0); EOSINOPHILS ABSOLUTE AUTO 0.1 K/mm3 (0.0-0.4); HEMATOCRIT 31.9 % (37.0-47.0); HEMOGLOBIN 10.5 gm/dl (12.0-16.0); IMMATURE GRAN ABSOLUTE AUTO 0.03 K/mm3 (0.00-0.05); IMMATURE GRAN PERCENT AUTO 0.5 % (0.0-0.4); MEAN CORPUSCULAR HEMOGLOBIN 29.6 pg (28.0-32.0); MEAN CORPUSCULAR HGB CONC 32.9 g/dl (32.0-36.0); MEAN CORPUSCULAR VOLUME 89.9 fl (83.0-99.0); MEAN PLATELET VOLUME 9.9 fl (9.4-12.3); MONOCYTES ABSOLUTE AUTO 0.6 K/mm3 (0.0-0.8); MONOCYTES PERCENT AUTO 9.7 % (0.0-8.0); NEUTROPHILS ABSOLUTE AUTO 4.6 K/mm3 (1.8-7.7); NEUTROPHILS PERCENT AUTO 72.2 % (41.0-71.0); PLATELET COUNT,PLT 210 K/mm3 (150-400); RED BLOOD CELL COUNT 3.55 M/mm3 (4.10-5.30); WHITE BLOOD CELL COUNT,WBC 6.39 K/mm3 (3.9-11.3)
[2024-06-22 06:09] LABS: A/G RATIO 0.8 (1-2); ALBUMIN 3.2 g/dl (3.4-5.0); ANION GAP 13.3 (5-15); BILIRUBIN TOTAL 0.7 mg/dL (0.2-1.0); BUN/CREATININE RATIO 18.6 (14-18); CALCIUM 9.2 mg/dL (8.5-10.1); CREATININE 1.4 mg/dL (0.55-1.02); EST CRCL DRUG DOSING (CG) 21.87 mL/min; POTASSIUM,K 4.3 mEq/L (3.5-5.1); PROTEIN TOTAL,TP 7.3 g/dl (6.4-8.2)
[2024-06-22 08:32] VITALS: BP 110/70; PULSE 69
[2024-06-22] MEDS ORDERED: Gabapentin 300 MG Cap PO SCH (21:00)
[2024-06-22] MEDS ORDERED: Gabapentin 100 MG Cap PO SCH (21:00)
== END 2024-06-22 14:38 | disposition home or self-care (01) | DRG 291 ==
LOC: JD.ED 19:29 → JD.MS 21:49
PROVIDERS: ADMIT Family Medicine; ATTEND Internal Medicine
DX: I13.0 Hypertensive heart and chronic kidney disease with heart failure and stage 1 through stage 4 chronic kidney disease, or unspecified chronic kidney disease (principal); I50.23 Acute on chronic systolic (congestive) heart failure; J96.01 Acute respiratory failure with hypoxia; R79.89 Other specified abnormal findings of blood chemistry; R53.1 Weakness; N18.32 Chronic kidney disease, stage 3b; I25.10 Atherosclerotic heart disease of native coronary artery without angina pectoris; Z79.899 Other long term (current) drug therapy; I25.5 Ischemic cardiomyopathy; Z91.041 Radiographic dye allergy status; R13.10 Dysphagia, unspecified; K44.9 Diaphragmatic hernia without obstruction or gangrene; F32.A Depression, unspecified; I73.9 Peripheral vascular disease, unspecified; H40.9 Unspecified glaucoma; E78.00 Pure hypercholesterolemia, unspecified; K21.9 Gastro-esophageal reflux disease without esophagitis; Z95.810 Presence of automatic (implantable) cardiac defibrillator; Z88.8 Allergy status to other drugs, medicaments and biological substances; I25.2 Old myocardial infarction; Z98.42 Cataract extraction status, left eye; Z98.41 Cataract extraction status, right eye; Z90.710 Acquired absence of both cervix and uterus; Z90.10 Acquired absence of unspecified breast and nipple
CPT/HCPCS: 36415; 71046; 80053; 83880; 84484; 85025; 86140; 93005; J1940; 81001; 83735; 85610; 87086; 93010; 93306; 94761; 96374; 99284-25; 99285; A9270-GY; J0696

== ENCOUNTER 2024-07-14 12:12 | Emergency (ER) | payer MEDICARE, OTHER ==
[2024-07-14 14:36] LABS: BASOPHILS PERCENT AUTO 0.4 % (0.0-1.0); EOSINOPHILS ABSOLUTE AUTO 0.1 K/mm3 (0.0-0.4); HEMATOCRIT 26.1 % (37.0-47.0); HEMOGLOBIN 8.4 gm/dl (12.0-16.0); IMMATURE GRAN ABSOLUTE AUTO 0.02 K/mm3 (0.00-0.05); IMMATURE GRAN PERCENT AUTO 0.3 % (0.0-0.4); LYMPHOCYTES ABSOLUTE AUTO 0.7 K/mm3 (1.0-4.8); LYMPHOCYTES PERCENT AUTO 10.9 % (24.0-44.0); MEAN CORPUSCULAR HEMOGLOBIN 30.4 pg (28.0-32.0); MEAN CORPUSCULAR HGB CONC 32.2 g/dl (32.0-36.0); MEAN CORPUSCULAR VOLUME 94.6 fl (83.0-99.0); MEAN PLATELET VOLUME 10.1 fl (9.4-12.3); MONOCYTES ABSOLUTE AUTO 0.6 K/mm3 (0.0-0.8); MONOCYTES PERCENT AUTO 9.1 % (0.0-8.0); NEUTROPHILS ABSOLUTE AUTO 5.2 K/mm3 (1.8-7.7); NEUTROPHILS PERCENT AUTO 78.3 % (41.0-71.0); PLATELET COUNT,PLT 175 K/mm3 (150-400); RED BLOOD CELL COUNT 2.76 M/mm3 (4.10-5.30); WHITE BLOOD CELL COUNT,WBC 6.68 K/mm3 (3.9-11.3)
[2024-07-14 14:56] LABS: ALANINE AMINOTRANSFERASE,ALT 26 U/L (14-59); ALBUMIN 3.3 g/dl (3.4-5.0); ALKALINE PHOSPHATASE 64 U/L (46-116); ANION GAP 14.8 (5-15); ASPARTATE AMNIOTRANSFERASE,AST 19 U/L (15-37); BLOOD UREA NITROGEN,BUN 22 mg/dL (7-18); BUN/CREATININE RATIO 16.9 (14-18); CALCIUM 8.4 mg/dL (8.5-10.1); CARBON DIOXIDE,CO2 25 mEq/L (21-32); CHLORIDE,CL 107 mEq/L (98-107); CREATININE 1.3 mg/dL (0.55-1.02); ESTIMATED GFR 41 mL/min (>60); GLUCOSE RANDOM 105 mg/dL (70-99); POTASSIUM,K 3.8 mEq/L (3.5-5.1); PROTEIN TOTAL,TP 6.6 g/dl (6.4-8.2); SODIUM,NA 143 mEq/L (136-145)
[2024-07-14 20:33] VITALS: BP 116/50; PULSE 85
== END 2024-07-14 16:00 | disposition home or self-care (01) ==
LOC: JD.ED 12:12
DX: R60.0 Localized edema (principal); I25.10 Atherosclerotic heart disease of native coronary artery without angina pectoris; I25.2 Old myocardial infarction; E78.00 Pure hypercholesterolemia, unspecified; Z90.710 Acquired absence of both cervix and uterus; Z88.8 Allergy status to other drugs, medicaments and biological substances; Z91.041 Radiographic dye allergy status; Z79.01 Long term (current) use of anticoagulants; Z79.899 Other long term (current) drug therapy
CPT/HCPCS: 36415; 71045; 71045-26; 80053; 83880; 85025; 99283

== ENCOUNTER 2024-08-01 06:01 | Inpatient (IN) | payer MEDICARE, OTHER ==
[2024-08-01 06:49] LABS: BASOPHILS PERCENT AUTO 0.6 % (0.0-1.0); EOSINOPHILS ABSOLUTE AUTO 0.1 K/mm3 (0.0-0.4); HEMATOCRIT 27.3 % (37.0-47.0); HEMOGLOBIN 8.6 gm/dl (12.0-16.0); IMMATURE GRAN ABSOLUTE AUTO 0.03 K/mm3 (0.00-0.05); IMMATURE GRAN PERCENT AUTO 0.4 % (0.0-0.4); LYMPHOCYTES ABSOLUTE AUTO 0.8 K/mm3 (1.0-4.8); LYMPHOCYTES PERCENT AUTO 10.6 % (24.0-44.0); MEAN CORPUSCULAR HEMOGLOBIN 30.4 pg (28.0-32.0); MEAN CORPUSCULAR HGB CONC 31.5 g/dl (32.0-36.0); MEAN CORPUSCULAR VOLUME 96.5 fl (83.0-99.0); MEAN PLATELET VOLUME 10.1 fl (9.4-12.3); MONOCYTES ABSOLUTE AUTO 0.5 K/mm3 (0.0-0.8); MONOCYTES PERCENT AUTO 7.3 % (0.0-8.0); NEUTROPHILS ABSOLUTE AUTO 5.8 K/mm3 (1.8-7.7); NEUTROPHILS PERCENT AUTO 80.1 % (41.0-71.0); PLATELET COUNT,PLT 183 K/mm3 (150-400); RED BLOOD CELL COUNT 2.83 M/mm3 (4.10-5.30); WHITE BLOOD CELL COUNT,WBC 7.25 K/mm3 (3.9-11.3)
[2024-08-01 06:55] LABS: INR 1.87
[2024-08-01 07:07] LABS: A/G RATIO 1.1 (1-2); ALBUMIN 3.3 g/dl (3.4-5.0); BILIRUBIN TOTAL 1.4 mg/dL (0.2-1.0); BUN/CREATININE RATIO 19.2 (14-18); CALCIUM 8.6 mg/dL (8.5-10.1); CREATININE 1.2 mg/dL (0.55-1.02); EST CRCL DRUG DOSING (CG) 25.51 mL/min; PROTEIN TOTAL,TP 6.4 g/dl (6.4-8.2)
[2024-08-01] MEDS: Sodium Chloride 0.9% 10 ML Syringe FLUSH PRN (08:50)
[2024-08-01] MEDS: Furosemide 40 MG/4 ML VIAL IVPUSH ONE (08:50)
[2024-08-01] MEDS: Carvedilol 6.25 MG Tab PO SCH (13:06)
[2024-08-01] MEDS ORDERED: Warfarin 4 MG Tab PO SCH (18:30)
[2024-08-01] MEDS: Warfarin 4 MG Tab PO ONE (20:33)
[2024-08-01] MEDS: Gabapentin 100 MG Cap PO SCH (20:33)
[2024-08-01] MEDS: Gabapentin 300 MG Cap PO SCH (20:33)
[2024-08-01] MEDS: Torsemide 20 MG Tab PO SCH (20:35)
[2024-08-02 05:49] LABS: BASOPHILS PERCENT AUTO 0.4 % (0.0-1.0); EOSINOPHILS PERCENT AUTO 0.6 % (0.0-6.0); HEMATOCRIT 26.8 % (37.0-47.0); HEMOGLOBIN 8.6 gm/dl (12.0-16.0); IMMATURE GRAN ABSOLUTE AUTO 0.03 K/mm3 (0.00-0.05); IMMATURE GRAN PERCENT AUTO 0.4 % (0.0-0.4); LYMPHOCYTES ABSOLUTE AUTO 0.6 K/mm3 (1.0-4.8); LYMPHOCYTES PERCENT AUTO 9.6 % (24.0-44.0); MEAN CORPUSCULAR HEMOGLOBIN 30.7 pg (28.0-32.0); MEAN CORPUSCULAR HGB CONC 32.1 g/dl (32.0-36.0); MEAN CORPUSCULAR VOLUME 95.7 fl (83.0-99.0); MEAN PLATELET VOLUME 9.6 fl (9.4-12.3); MONOCYTES ABSOLUTE AUTO 0.6 K/mm3 (0.0-0.8); MONOCYTES PERCENT AUTO 8.4 % (0.0-8.0); NEUTROPHILS ABSOLUTE AUTO 5.4 K/mm3 (1.8-7.7); NEUTROPHILS PERCENT AUTO 80.6 % (41.0-71.0); PLATELET COUNT,PLT 169 K/mm3 (150-400); WHITE BLOOD CELL COUNT,WBC 6.69 K/mm3 (3.9-11.3)
[2024-08-02 06:09] LABS: INR 1.91; PROTHROMBIN TIME 19.4 SECONDS (9.7-12.0)
[2024-08-02 06:17] LABS: ALBUMIN 3.1 g/dl (3.4-5.0); BILIRUBIN TOTAL 1.7 mg/dL (0.2-1.0); BUN/CREATININE RATIO 14.2 (14-18); CALCIUM 8.3 mg/dL (8.5-10.1); CREATININE 1.2 mg/dL (0.55-1.02); EST CRCL DRUG DOSING (CG) 25.51 mL/min; PROTEIN TOTAL,TP 6.2 g/dl (6.4-8.2)
[2024-08-02 06:40] LABS: ANION GAP 14.1 (5-15)
[2024-08-02 06:43] LABS: POTASSIUM,K 3.1 mEq/L (3.5-5.1)
[2024-08-02] MEDS: Rosuvastatin 10 MG Tab PO SCH (08:16)
[2024-08-02] MEDS: Potassium Chloride 20 MEQ Tab.ER PO ONE (08:17)
[2024-08-02] MEDS: Sertraline 50 MG Tab PO SCH (08:17)
[2024-08-02] MEDS: Ferrous Sulfate 324 MG Tab.EC PO SCH (08:20)
[2024-08-02] MEDS: atorvaSTATin 40 MG Tab PO SCH (10:24)
[2024-08-02 15:39] LABS: BUN/CREATININE RATIO 15.3 (14-18); CALCIUM 8.5 mg/dL (8.5-10.1); CREATININE 1.5 mg/dL (0.55-1.02); EST CRCL DRUG DOSING (CG) 20.41 mL/min
[2024-08-02 16:07] LABS: ANION GAP 15.1 (5-15)
[2024-08-02 16:15] LABS: POTASSIUM,K 4.1 mEq/L (3.5-5.1)
[2024-08-02] MEDS ORDERED: Torsemide 20 MG Tab PO SCH (20:00)
[2024-08-02] MEDS: Warfarin 3 MG Tab PO SCH (20:42)
[2024-08-03] MEDS: Acetaminophen 325 MG Tab PO PRN (05:33)
[2024-08-03 06:09] LABS: ALBUMIN 3.1 g/dl (3.4-5.0); ANION GAP 13.5 (5-15); BILIRUBIN TOTAL 1.6 mg/dL (0.2-1.0); BUN/CREATININE RATIO 18.5 (14-18); CALCIUM 8.7 mg/dL (8.5-10.1); CREATININE 1.3 mg/dL (0.55-1.02); EST CRCL DRUG DOSING (CG) 23.55 mL/min; POTASSIUM,K 3.5 mEq/L (3.5-5.1); PROTEIN TOTAL,TP 6.3 g/dl (6.4-8.2)
[2024-08-03 06:10] LABS: INR 2.13; PROTHROMBIN TIME 21.5 SECONDS (9.7-12.0)
[2024-08-03] MEDS: Potassium Chloride 20 MEQ Tab.ER PO SCH (09:08)
[2024-08-03 13:46] VITALS: PULSE 67
[2024-08-03] MEDS: Sodium Chloride 0.9% 250 ML IV ONE (14:07)
[2024-08-03 15:24] VITALS: BP 106/52
[2024-08-03] MEDS ORDERED: Warfarin** 1 MG TABLET PO SCH (18:00)
== END 2024-08-03 15:58 | disposition home or self-care (01) | DRG 291 ==
LOC: JD.ED 06:01 → JD.MS 11:51
PROVIDERS: ADMIT Family Medicine; ATTEND Family Medicine
DX: I11.0 Hypertensive heart disease with heart failure (principal); I50.23 Acute on chronic systolic (congestive) heart failure; R79.89 Other specified abnormal findings of blood chemistry; J96.01 Acute respiratory failure with hypoxia; E87.1 Hypo-osmolality and hyponatremia; Z91.041 Radiographic dye allergy status; I25.5 Ischemic cardiomyopathy; I25.10 Atherosclerotic heart disease of native coronary artery without angina pectoris; E78.00 Pure hypercholesterolemia, unspecified; H40.9 Unspecified glaucoma; H54.7 Unspecified visual loss; H26.9 Unspecified cataract; I73.9 Peripheral vascular disease, unspecified; K21.9 Gastro-esophageal reflux disease without esophagitis; M19.90 Unspecified osteoarthritis, unspecified site; M81.0 Age-related osteoporosis without current pathological fracture; F32.A Depression, unspecified; F15.90 Other stimulant use, unspecified, uncomplicated; I34.0 Nonrheumatic mitral (valve) insufficiency; E87.6 Hypokalemia; E87.8 Other disorders of electrolyte and fluid balance, not elsewhere classified; Z98.49 Cataract extraction status, unspecified eye; Z90.710 Acquired absence of both cervix and uterus; Z98.890 Other specified postprocedural states; Z99.81 Dependence on supplemental oxygen; Z88.8 Allergy status to other drugs, medicaments and biological substances; Z95.810 Presence of automatic (implantable) cardiac defibrillator; Z79.01 Long term (current) use of anticoagulants; Z79.1 Long term (current) use of non-steroidal anti-inflammatories (NSAID); Z79.51 Long term (current) use of inhaled steroids; Z79.899 Other long term (current) drug therapy; Z79.02 Long term (current) use of antithrombotics/antiplatelets; I25.2 Old myocardial infarction; Z86.711 Personal history of pulmonary embolism; Z87.891 Personal history of nicotine dependence; Z90.10 Acquired absence of unspecified breast and nipple
CPT/HCPCS: 36415; 71045; 80053; 83880; 84484 ×2; 85025; 85610; 87428; 93005 ×2; 96374; 99285; J1940; 80048; 94760; 94761; 97116-GP; 97162-GP; A9270-GY; J7030

== ENCOUNTER 2025-03-04 11:55 | Emergency (ER) | payer MEDICARE, OTHER ==
[2025-03-04 13:41] LABS: BASOPHILS ABSOLUTE AUTO 0.0 K/mm3 (0.0-0.2); BASOPHILS PERCENT AUTO 0.5 % (0.0-1.0); EOSINOPHILS ABSOLUTE AUTO 0.1 K/mm3 (0.0-0.4); EOSINOPHILS PERCENT AUTO 1.1 % (0.0-6.0); IMMATURE GRAN ABSOLUTE AUTO 0.02 K/mm3 (0.00-0.05); IMMATURE GRAN PERCENT AUTO 0.4 % (0.0-0.4); LYMPHOCYTES ABSOLUTE AUTO 0.8 K/mm3 (1.0-4.8); LYMPHOCYTES PERCENT AUTO 15.2 % (24.0-44.0); MEAN PLATELET VOLUME 9.8 fl (9.4-12.3); MONOCYTES ABSOLUTE AUTO 0.5 K/mm3 (0.0-0.8); MONOCYTES PERCENT AUTO 9.3 % (0.0-8.0); NEUTROPHILS ABSOLUTE AUTO 4.0 K/mm3 (1.8-7.7); NEUTROPHILS PERCENT AUTO 73.5 % (41.0-71.0); NRBC ABSOLUTE 0.00 (0.00-0.02); NRBC PERCENT 0.0 % (0.0-0.2); PLATELET COUNT,PLT 172 K/mm3 (150-400); RED BLOOD CELL COUNT 3.49 M/mm3 (4.10-5.30); WHITE BLOOD CELL COUNT,WBC 5.46 K/mm3 (3.9-11.3)
[2025-03-04 13:58] LABS: A/G RATIO 1.1 (1-2); ALANINE AMINOTRANSFERASE,ALT 33.0 U/L (14-59); ASPARTATE AMNIOTRANSFERASE,AST 32.0 U/L (15-37); BILIRUBIN TOTAL 1.3 mg/dL (0.2-1.0); BLOOD UREA NITROGEN,BUN 23.0 mg/dL (7-18); CARBON DIOXIDE,CO2 29.0 mEq/L (21-32); CHLORIDE,CL 106.0 mEq/L (98-107); CREATININE 1.4 mg/dL (0.55-1.02); EST CRCL DRUG DOSING (CG) 21.49 mL/min; ESTIMATED GFR 37.0 mL/min (>60); GLUCOSE RANDOM 88.0 mg/dL (70-99); POTASSIUM,K 4.4 mEq/L (3.5-5.1); PROTEIN TOTAL,TP 6.8 g/dl (6.4-8.2); SODIUM,NA 142.0 mEq/L (136-145)
[2025-03-04 13:59] LABS: APPEARANCE,URINE CLEAR (Clear); GLUCOSE,URINE 1+ (Negative); OCCULT BLOOD,URINE NEGATIVE (Negative)
[2025-03-04 14:47] LABS: EPITHELIAL CELLS,URINE 0-5 /hpf (0-5)
[2025-03-04 15:30] VITALS: BP 109/46; PULSE 68
== END 2025-03-04 15:21 | disposition home or self-care (01) ==
LOC: JD.ED 11:55
DX: M54.50 Low back pain, unspecified (principal); K21.9 Gastro-esophageal reflux disease without esophagitis; E78.00 Pure hypercholesterolemia, unspecified; Z91.041 Radiographic dye allergy status; Z88.8 Allergy status to other drugs, medicaments and biological substances; Z79.01 Long term (current) use of anticoagulants; Z79.899 Other long term (current) drug therapy
CPT/HCPCS: 36415; 74176; 74176-26; 80053; 81001; 83690; 85025; 99284

== ENCOUNTER 2025-03-12 15:57 | Emergency (ER) | payer MEDICARE, OTHER ==
[2025-03-12 16:19] VITALS: BP 108/83; PULSE 74
[2025-03-12 17:32] LABS: BASOPHILS ABSOLUTE AUTO 0.0 K/mm3 (0.0-0.2); BASOPHILS PERCENT AUTO 0.7 % (0.0-1.0); EOSINOPHILS ABSOLUTE AUTO 0.1 K/mm3 (0.0-0.4); EOSINOPHILS PERCENT AUTO 1.3 % (0.0-6.0); IMMATURE GRAN ABSOLUTE AUTO 0.02 K/mm3 (0.00-0.05); IMMATURE GRAN PERCENT AUTO 0.3 % (0.0-0.4); LYMPHOCYTES ABSOLUTE AUTO 0.9 K/mm3 (1.0-4.8); LYMPHOCYTES PERCENT AUTO 14.9 % (24.0-44.0); MEAN PLATELET VOLUME 10.8 fl (9.4-12.3); MONOCYTES ABSOLUTE AUTO 0.7 K/mm3 (0.0-0.8); MONOCYTES PERCENT AUTO 11.6 % (0.0-8.0); NEUTROPHILS ABSOLUTE AUTO 4.3 K/mm3 (1.8-7.7); NEUTROPHILS PERCENT AUTO 71.2 % (41.0-71.0); NRBC ABSOLUTE 0.00 (0.00-0.02); NRBC PERCENT 0.0 % (0.0-0.2); PLATELET COUNT,PLT 150 K/mm3 (150-400); RED BLOOD CELL COUNT 3.70 M/mm3 (4.10-5.30); WHITE BLOOD CELL COUNT,WBC 6.04 K/mm3 (3.9-11.3)
[2025-03-12 17:40] LABS: INR 1.11
[2025-03-12 17:43] LABS: APPEARANCE,URINE CLEAR (Clear); GLUCOSE,URINE 1+ (Negative); OCCULT BLOOD,URINE NEGATIVE (Negative)
[2025-03-12 17:48] LABS: EPITHELIAL CELLS,URINE 0-5 /hpf (0-5)
[2025-03-12 17:56] LABS: A/G RATIO 1.1 (1-2); ALANINE AMINOTRANSFERASE,ALT 31.0 U/L (14-59); ASPARTATE AMNIOTRANSFERASE,AST 31.0 U/L (15-37); BILIRUBIN TOTAL 1.4 mg/dL (0.2-1.0); BLOOD UREA NITROGEN,BUN 24.0 mg/dL (7-18); CARBON DIOXIDE,CO2 28.0 mEq/L (21-32); CHLORIDE,CL 104.0 mEq/L (98-107); CREATININE 1.7 mg/dL (0.55-1.02); EST CRCL DRUG DOSING (CG) 17.69 mL/min; ESTIMATED GFR 29.0 mL/min (>60); GLUCOSE RANDOM 102.0 mg/dL (70-99); POTASSIUM,K 4.4 mEq/L (3.5-5.1); PROTEIN TOTAL,TP 7.6 g/dl (6.4-8.2); SODIUM,NA 139.0 mEq/L (136-145)
[2025-03-12 18:17] LABS: TROPONIN I HIGH SENSITIVITY 113.0 pg/mL (<=51)
== END 2025-03-12 20:30 | disposition home or self-care (01) ==
LOC: JD.ED 15:57
DX: N17.9 Acute kidney failure, unspecified (principal); N18.9 Chronic kidney disease, unspecified; D64.9 Anemia, unspecified; F45.9 Somatoform disorder, unspecified; R03.0 Elevated blood-pressure reading, without diagnosis of hypertension; I25.10 Atherosclerotic heart disease of native coronary artery without angina pectoris; I50.9 Heart failure, unspecified; E78.00 Pure hypercholesterolemia, unspecified; K21.9 Gastro-esophageal reflux disease without esophagitis; I25.2 Old myocardial infarction; Z91.041 Radiographic dye allergy status; Z79.01 Long term (current) use of anticoagulants; Z79.899 Other long term (current) drug therapy
CPT/HCPCS: 36415; 70450; 70450-26; 71045; 71045-26; 80053; 81001; 82947; 83690; 83735; 83880; 84484; 85025; 85610; 93005; 99285